=== PATIENT | female | born 1945 | race Caucasian/White ===

== ENCOUNTER 2016-10-24 07:10 | Observation (INO) ==
[2016-10-24] MEDS ORDERED: 0.9 % Sodium Chloride 1,000 ML IVC ONE (07:31)
[2016-10-24] MEDS ORDERED: Ondansetron 4 MG/2 ML VIAL IVP ONE (07:31)
--- NOTE | 2016-10-24 07:43 | Emergency Department Note ---
Disposition Clinical Impression: NSTEMI (non-ST elevated myocardial infarction), Atrial flutter by electrocardiogram Disposition: Admitted As Inpatient Condition: Good Referrals: NO,PCP [Non-Partnered Physician] - Forms: ED Satisfaction Letter Time of Disposition: 09:32 General Adult HPI - General Chief complaint: ED Weakness Stated complaint: Weakness/fall Time Seen by Provider: 10/24/16 07:19 Source: patient, family, EMS Limitations: no limitations Nursing Notes Reviewed: Yes Vital Signs Reviewed: Yes - History of Present Illness HPI Narrative: Female patient with a two-day history of nausea vomiting and diarrhea presents emergency department after a fall at home this morning. She states she fell in her bedroom between her bed and dresser. Unknown if she struck her head. Did lose consciousness. Defecated on herself. Patient is alert and oriented with no complaints of pain at this time. Pain Scale: 0 - Related Data Allergies Allergy/AdvReac Type Severity Reaction Status Date / Time ampicillin Allergy Rash Verified 06/15/15 14:14 All systems ED: reviewed and negative except as stated. Constitutional: Denies: fever, chills ENT ED: Denies: ear pain, throat pain, congestion, dysphagia Cardiovascular: Reports: syncope (Possible episode of syncope today). Denies: chest pain, palpitations, dyspnea on exertion Respiratory: Denies: cough, dyspnea Gastrointestinal: Reports: nausea (For the past 2 days), vomiting (For the past 2 days), diarrhea (For the past 2 days). Denies: abdominal pain Genitourinary: Denies: urgency, dysuria, frequency, hematuria Musculoskeletal: Denies: back pain, neck pain, joint swelling, arthralgia Integumentary: Denies: rash, abrasion, lesions Neurological: Denies: headache, weakness, numbness, paresthesias Past Medical History - Past Medical History Attestation: Yes The following information was validated with the patient. Medical history: Reports: cancer, COPD, diabetes, hypertension, thyroid disease Psychiatric history: Reports: depression - Social History Smoking Status: Current every day smoker Smokeless Tobacco Status: No Alcohol use: Reports: none Drug use: Reports: none Physical Exam - General Limitations: no limitations General appearance: alert, in no apparent distress - Head Head exam: atraumatic, normal inspection - Expanded Head Exam Head exam physicial: Absent: laceration, abrasion, contusion, hematoma, raccoon eyes - Eye Eye exam: Present: normal appearance, PERRL, EOMI. Absent: scleral icterus, conjunctival injection, periorbital swelling, periorbital tenderness - ENT ENT exam: normal exam, normal oropharynx, mucous membranes dry - Neck Neck exam: Present: normal inspection, full ROM, trachea midline. Absent: tenderness, meningismus, lymphadenopathy - Chest Chest inspection: Present: normal inspection, symmetric chest wall rise. Absent : tenderness - Respiratory Respiratory exam: Present: normal lung sounds bilaterally. Absent: respiratory distress - Cardiovascular Cardiovascular exam: Present: regular rate, normal rhythm, normal heart sounds - Abdominal Exam Abdominal exam: Present: soft, Non-Tender, normal bowel sounds. Absent: organomegaly - Extremities Exam Extremities exam: Present: normal inspection, full ROM, normal capillary refill. Absent: tenderness, pedal edema - Back Exam Back exam: Present: normal inspection, full ROM. Absent: tenderness, CVA tenderness (R), CVA tenderness (L) - Neurological Exam Neurological exam: Present: alert, oriented X3 - Psychiatric Psychiatric exam: Present: normal affect, normal mood - Skin Skin exam: Present: warm, dry, intact, normal color. Absent: rash, cyanosis Course Course Narrative: Well-appearing female patient resting comfortably in bed. Patient states that she got out of bed this morning and noticed that her legs were too weak to hold her. She states she then went down to the floor. There is a questionable period Of possible loss of consciousness. Daughter states that she heard her mother mehrdad for her to come help her out of the floor. The daughter then called 911 to assist the patient up. The patient had defecated on herself. Patient has had a 2 day episode of nausea vomiting and diarrhea. She states that she has not been eating or drinking very well since then. Patient does appear dehydrated clinically. Her mucous membranes are dry. The daughter states that there are a lot of stressors at the house recently the patient does have a history of dementia. She states she has been getting her days and nights confused. At this time she is alert and oriented 3. She has no complaints of pain anywhere. I do not find signs of trauma to her body at all. Her pupils are equal and reactive. She has full range of motion of all 4 extremities. She has strong pulses in all 4 extremities. She has no tenderness to her neck or back on palpation. Patient is on aspirin daily. We will scan patient's head due to the possible syncope and unknown trauma to her head. We will also get basic lab work and give her a fluid bolus so she is here. - Reevaluation(s) Reevaluation #1: Patient currently resting comfortably in bed at this time. Her troponin is increased and she is not a new A flutter. However while she is in bed She is still denying any chest pain or shortness of breath. She is agreeable to admission at this time. On CT scan she was found to have possible mastoiditis. She has no pain to her head on palpation at all. She states that she was diagnosed with this she was a small child. However she states she has no pain. Time: : - Consultations Consultation #1: Spoke with Dr. Diamond. He advises to anticoagulate the patient with heparin at this time. He states he use Cardizem for rate control if needed. And to admit patient. She is to be nothing by mouth after midnight. Time: : Consultation #2: Dr Moran accepted Pt in stable condition Time: : Vital Signs Temperature 98.6 F 10/24/16 07:13 Pulse Rate 85 10/24/16 07:13 Respiratory Rate 18 10/24/16 07:13 Blood Pressure 159/56 10/24/16 07:13 O2 Sat by Pulse Oximetry 96 10/24/16 07:13 Temperature 98.6 F 10/24/16 07:13 Pulse Rate 85 10/24/16 07:13 Respiratory Rate 18 10/24/16 07:13 Blood Pressure 159/56 10/24/16 07:13 O2 Sat by Pulse Oximetry 96 10/24/16 07:13 Oxygen Delivery Oxygen Delivery Room Air Medical Decision Making - Medical Records Medical records reviewed: Yes I reviewed the patient's medical records. - Lab Data Lab results reviewed: Yes I reviewed the patient's lab results. Result diagrams: 10/24/16 07:40 10/24/16 07:30 Lab Results 10/24/16 10/24/16 10/24/16 Range/Units 07:30 07:30 07:30 WBC (4.3-11.1) K/mcL RBC (3.82-4.97) M/mcL Hgb (11.5-15.4) g/dL Hct (35.3-44.9) % MCV (83.0-100.0) fL MCH (28.0-33.3) pg MCHC (31.6-35.5) g/dL RDW (11.5-14.5) % Plt Count (140-400) K/mcL MPV (9.4-12.4) fL Immature Gran % (0-4) % Seg Neutrophils % % Lymphocytes % % Monocytes % % Eosinophils % % Basophils % % Neutrophils # (1.6-8.9) K/mcL Lymphocytes # (0.6-4.6) K/mcL Monocytes # (0.0-1.3) K/mcL Eosinophils # (0.0-0.6) K/mcL Basophils # (0.0-0.2) K/mcL PT 12.7 H (9.4-12.1) Seconds INR 1.2 APTT 26.7 (26.0-36.0) Seconds Sodium 137 (136-145) mEq/L Potassium 4.0 (3.5-4.5) mEq/L Chloride 98 (98-109) mEq/L Carbon Dioxide 29 (19-29) mEq/L BUN 31 H (7-20) mg/dL Creatinine 1.13 H (0.57-1.11) mg/dL Est GFR ( Amer) 57 L (> 60) Est GFR (Non-Af Amer) 47 L (> 60) BUN/Creatinine Ratio 27 H (6-26) Glucose 177 H (70-99) mg/dL Calculated Osmolality 295 (280-300) Calcium 9.1 (8.6-10.8) mg/dL Total Bilirubin 0.8 (0.2-1.2) mg/dL AST 18 (5-34) Units/L ALT 11 (0-55) Units/L Alkaline Phosphatase 53 (38-126) Units/L Creatine Kinase 149 (29-168) Units/L Troponin I 0.16 H* (0-0.03) ng/mL Serum Total Protein 6.4 (6.0-8.3) g/dL Albumin 3.1 L (3.5-5.0) g/dL Globulin 3.3 (2.4-3.5) g/dL Albumin/Globulin Ratio 0.9 L (1.1-2.2) 04/16/17 Range/Units 07:40 WBC 9.0 (4.3-11.1) K/mcL RBC 3.83 (3.82-4.97) M/mcL Hgb 10.8 L (11.5-15.4) g/dL Hct 33.7 L (35.3-44.9) % MCV 88.0 (83.0-100.0) fL MCH 28.2 (28.0-33.3) pg MCHC 32.0 (31.6-35.5) g/dL RDW 14.0 (11.5-14.5) % Plt Count 129 L (140-400) K/mcL MPV 11.1 (9.4-12.4) fL Immature Gran % 0.3 (0-4) % Seg Neutrophils % 92.4 % Lymphocytes % 2.1 % Monocytes % 5.1 % Eosinophils % 0.0 % Basophils % 0.1 % Neutrophils # 8.3 (1.6-8.9) K/mcL Lymphocytes # 0.2 L (0.6-4.6) K/mcL Monocytes # 0.5 (0.0-1.3) K/mcL Eosinophils # 0.0 (0.0-0.6) K/mcL Basophils # 0.0 (0.0-0.2) K/mcL PT (9.4-12.1) Seconds INR APTT (26.0-36.0) Seconds Sodium (136-145) mEq/L Potassium (3.5-4.5) mEq/L Chloride (98-109) mEq/L Carbon Dioxide (19-29) mEq/L BUN (7-20) mg/dL Creatinine (0.57-1.11) mg/dL Est GFR ( Amer) (> 60) Est GFR (Non-Af Amer) (> 60) BUN/Creatinine Ratio (6-26) Glucose (70-99) mg/dL Calculated Osmolality (280-300) Calcium (8.6-10.8) mg/dL Total Bilirubin (0.2-1.2) mg/dL AST (5-34) Units/L ALT (0-55) Units/L Alkaline Phosphatase (38-126) Units/L Creatine Kinase (29-168) Units/L Troponin I (0-0.03) ng/mL Serum Total Protein (6.0-8.3) g/dL Albumin (3.5-5.0) g/dL Globulin (2.4-3.5) g/dL Albumin/Globulin Ratio (1.1-2.2) - Radiology Data Radiology results reviewed: Yes I reviewed the patient's radiology results. - EKG Data EKG #1 EKG attestation: Yes I reviewed and interpreted this EKG. EKG results narrative: Atrial flutter. Ventricular rate of 82. QRS duration is 90. QT is 363. QTC is 41. This is a new finding from previous EKG dated 01/09/2015. No ST elevation or depression. Attestation Statement - Attestation Attestation: Patient is a 71-year-old female who presents to the emergency department brought by her daughter for evaluation following a fall that occurred this morning. Patient resides with her daughter at home, and apparently she has had a nausea vomiting and diarrheal illness over the last 2 days. Patient just complains of gradually worsening generalized weakness and states "my legs came out from under me", while getting out of bed this morning causing her to fall onto the floor. Patient yelled for her daughter who responded right away found her awake and alert clear speech on the floor between the bed and her nightstand. Patient did not hit her head she had no nausea or vomiting. Patient states she remembers getting up feeling her legs get weak she remembers falling and landed on the ground but once on the ground was not sure how long until her daughter was able to respond. Patient had no loss of consciousness. Patient on arrival here is asymptomatic, she denies any chest pain or pressure or heaviness, no shortness of breath, no diaphoresis, no nausea vomiting or diarrhea, no abdominal pain either now nor over the past 2 days associated with her vomiting and diarrheal illness. Patient denies any back or flank pain. Patient is resting comfortably at this time and here to be "checked out" related to the fall. Patient with a mild elevation in her blood pressure on arrival but otherwise vital stable. Patient in no acute distress on arrival. Patient's EKG shows what appears to be in underlying atrial flutter but rate controlled. There is no acute ST or T wave changes seen in EKG. I asked the patient about this and according to her and the daughter she had a transient episode of atrial fibrillation in the past related to prior hospitalization but she did not stay in this rhythm, she is not on any heart medications, and is not on any anticoagulants except aspirin daily. Patient denies having any episodes of chest pain pressure or heaviness and no abdominal pain throughout the past 48 hours with this vomiting and diarrheal illness. On lab evaluation patient's workup including chest x-ray and head CT is pre- unremarkable with the exception of an elevated troponin. At this time patient was reassessed, still pain free and asymptomatic resting comfortably with her daughter. Patient's repeat EKG is unchanged from the initial showing no evidence of STEMI or acute ST change. At this time patient denies any palpitations or symptoms. With the elevated troponin we did page cardiology and speak with them in regards to her changes in her EKG as well as the elevated troponin. There requested anticoagulation and admission for further evaluation and management. Patient has remained stable and asymptomatic throughout her ED course.
[2016-10-24 08:04] LABS: Basophils % 0.1 %; Hematocrit 33.7 % (35.3-44.9); Hemoglobin 10.8 g/dL (11.5-15.4); Immature Granulocytes % 0.3 % (0-4); Lymphocytes # 0.2 K/mcL (0.6-4.6); Lymphocytes % 2.1 %; Mean Corpuscular Hemoglobin 28.2 pg (28.0-33.3); Mean Platelet Volume 11.1 fL (9.4-12.4); Monocytes # 0.5 K/mcL (0.0-1.3); Monocytes % 5.1 %; Neutrophils # 8.3 K/mcL (1.6-8.9); Platelet Count 129 K/mcL (140-400); Red Blood Count 3.83 M/mcL (3.82-4.97); Segmented Neutrophils % 92.4 %
[2016-10-24 08:56] LABS: Albumin 3.1 g/dL (3.5-5.0); Albumin/Globulin Ratio 0.9 (1.1-2.2); Bilirubin,Total 0.8 mg/dL (0.2-1.2); Calcium 9.1 mg/dL (8.6-10.8); Globulin 3.3 g/dL (2.4-3.5); Total Protein 6.4 g/dL (6.0-8.3)
[2016-10-24] MEDS ORDERED: Aspirin 81 MG TAB.CHEW PO ONE (09:09)
[2016-10-24] MEDS ORDERED: *HR* Heparin 5,000 UNIT/ML VIAL IVP PRN ×2 (09:15)
[2016-10-24] MEDS ORDERED: Heparin 25,000 UNIT/500 ML D5W 25,000 UNIT/500 ML MLS IVC SCH (09:15)
[2016-10-24] MEDS ORDERED: *HR* Heparin 5,000 UNIT/ML VIAL IVP ONE (09:15)
[2016-10-24 09:31] LABS: INR 1.2; Prothrombin Time 12.7 Seconds (9.4-12.1)
[2016-10-24 09:33] LABS: Activated Partial Thrombo Time 26.7 Seconds (26.0-36.0)
--- NOTE | 2016-10-24 10:45 | Internal Med History&Physical ---
Date of Encounter: 10/24/16 Time of Encounter: 10:41 Assessment and Plan (1) NSTEMI (non-ST elevated myocardial infarction) Current visit: Yes Status: Acute Elevated troponin at 0.16, EKG does not show any ischemic changes, atrial flutter. Patient does not have any chest pain at this time. Patient had a fall today, ? syncopal episode. has been started on heparin drip , will trend trop, monitor for chest pain cardio consult will order ECHO. (2) HTN (hypertension) Current visit: Yes Status: Acute BP elevated at presnetation, she says she has not taken her BP meds today. however as per the daughetr she does not take her pills as she should, ?from her dementia. will restart her home meds monitor BP. Qualifiers: Hypertension type: essential hypertension Qualified Code(s): I10 - Essential (primary) hypertension (3) Diabetes Current visit: Yes Status: Acute Qualifiers: Qualified Code(s): E11.9 - Type 2 diabetes mellitus without complications (4) Dementia Current visit: Yes Status: Acute appears to be alert and awake and oriented at the time of my assesment. as per the daughter she gets confused at times. she has refused HH and rehab services before. she is a high fall risk. will consult PT/OT. Qualifiers: Dementia type: Alzheimer's disease Alzheimer's disease onset: early-onset Dementia behavioral disturbance: without behavioral disturbance Qualified Code(s): G30.0 - Alzheimer's disease with early onset; F02.80 - Dementia in other diseases classified elsewhere without behavioral disturbance (5) Fall Current visit: Yes Status: Acute as above Qualifiers: Encounter type: initial encounter Qualified Code(s): W19.XXXA - Unspecified fall, initial encounter (6) Atrial flutter by electrocardiogram Current visit: Yes Status: Acute past h/o of atrial flutter. not in RVR, will monitor. Internal Medicine - H&P: HPI Chief complaint: fall Admitted From: Home Plans for Post Hospital Care: Home History of present illness: Ms. Coronado is a 71 year old female with past medical history of hypertension, diabetes, dementia , atrial flutter presented to ED after she fell at home this morning. Patient states that she got out of bed this morning and noticed that her legs were too weak to hold her. She states she then went down to the floor. There is a questionable period Of possible loss of consciousness. Daughter states that she heard her mother mehrdad for her to come help her out of the floor. The daughter then called 911 to assist the patient up. The patient had defecated on herself. Patient has had a 2 day episode of nausea vomiting and diarrhea. She states that she has not been eating or drinking very well since then. Patient does appear dehydrated clinically. Her mucous membranes are dry. The daughter states that there are a lot of stressors at the house recently the patient does have a history of dementia. She states she has been getting her days and nights confused. At this time she is alert and oriented 3. She has no complaints of pain anywhere. She denies any chest pain, shortness of breath, fever or cough. She denies any loss of consciousness after the fall. She says she has dizziness on and off and she walks with a walker, she has fallen a couple times in the last few months. As per the daughter, she does not take her medications as she should and is noncompliant with her diet. She was found to have elevated troponin and ED, was seen by cardiology and has been started on heparin drip. Past Med Surg Social Fam HX - Past Medical History Medical history: cancer, COPD, diabetes, hypertension, thyroid disease Psychiatric history: depression - Social History Smoking Status: Current every day smoker Smokeless Tobacco Status: No Alcohol use: none Drug use: none Internal Medicine - H&P: Meds Albuterol Neb [Proventil Neb] 2.5 mg IH TID PRN 10/24/16 [History] Albuterol Sulfate [Ventolin Hfa] 2 puff IH Q4-6H PRN 10/24/16 [History] Budesonide/Formoterol 160/4.5 [Symbicort 160/4.5] 2 puff IH BIDR 10/24/16 [ History] Chlorthalidone 25 mg PO QAM 10/24/16 [History] Cholecalciferol (Vitamin D3) [Vitamin D] 50,000 unit PO QWEEK 10/24/16 [History] FLUoxetine HCl [PROzac] 20 mg PO DAILY 10/24/16 [History] Fluticasone Propionate Nasal [Flonase] 2 spray NS DAILY 10/24/16 [History] Gabapentin [Neurontin] 600 mg PO HS 10/24/16 [History] GlipiZIDE XL (24 HR) [Glucotrol XL] 10 mg PO BID 10/24/16 [History] Levothyroxine [Synthroid] 112 mcg PO QAM 10/24/16 [History] Liraglutide [Victoza 2-Sandip] 1.2 mg SQ DAILY 10/24/16 [History] Losartan Potassium [Cozaar] 50 mg PO DAILY 10/24/16 [History] Lovastatin [Mevacor] 20 mg PO DAILY 10/24/16 [History] Meclizine HCl [Verticalm] 25 mg PO Q6H PRN 10/24/16 [History] Metoprolol [Lopressor] 25 mg PO BID 10/24/16 [History] Omeprazole [PriLOSEC] 40 mg PO DAILY 10/24/16 [History] Oxygen 2 l NS CONT 10/24/16 [History] Pioglitazone [Actos] 45 mg PO DAILY 10/24/16 [History] Raloxifene [Evista] 60 mg PO DAILY 10/24/16 [History] Sertraline [Zoloft] 150 mg PO DAILY 10/24/16 [History] Tiotropium [Spiriva] 1 puff IH DAILY 10/24/16 [History] Allergies ampicillin Allergy (Verified 06/15/15 14:14) Rash All Systems PM: A 10-system review of systems was performed and is negative for pertinent findings except as documented above in the HPI. - Constitutional Vitals: Temp Pulse Resp BP Pulse Ox 98.6 F 85 18 159/56 96 10/24/16 07:13 10/24/16 07:13 10/24/16 07:13 10/24/16 07:13 10/24/16 07:13 General appearance: Present: A&O X 3, no acute distress Exam: mucous membranes appear moist neck- supple chest- b/l clear, no added sounds CVS-s1 and s2, no mr//g abd-soft, non tender, bs are present ext- no edema neuro- no focal defecits, alert and awake. Internal Med - H&P Results - Labs CBC & Chem 7: 10/24/16 07:40 10/24/16 07:30
[2016-10-24] MEDS ORDERED: Naloxone 0.4 MG/ML INJ IVP PRN (11:06)
[2016-10-24] MEDS ORDERED: Ondansetron 4 MG/2 ML VIAL IVP PRN (11:06)
[2016-10-24] MEDS ORDERED: D5% in Water 1,000 ML IVC PRN (11:11)
[2016-10-24] MEDS ORDERED: *HR* Dextrose 50 % in Water (Syg) 50 ML SYRINGE IVP PRN (11:11)
[2016-10-24] MEDS ORDERED: Dextrose Gel 15 GM PO PRN ×2 (11:11)
[2016-10-24] MEDS: Insulin LISPRO 300 UNITS/3 ML VIAL SQ SCH ×4 (14:02→21:12)
[2016-10-24] MEDS: Pantoprazole 40 MG VIAL IVP SCH (15:18)
[2016-10-24] MEDS: 0.9 % Sodium Chloride 1,000 ML IVC SCH (15:18)
[2016-10-24] MEDS: Gabapentin 300 MG CAPSULE PO SCH (21:12)
[2016-10-24] MEDS: Budesonide/Formoterol 160/4.5 MDI IH SCH (21:43)
[2016-10-25 01:19] LABS: Basophils % 0.2 %; Hematocrit 31.2 % (35.3-44.9); Hemoglobin 9.9 g/dL (11.5-15.4); Immature Granulocytes % 0.5 % (0-4); Lymphocytes # 0.4 K/mcL (0.6-4.6); Lymphocytes % 6.2 %; Mean Corpuscular HGB Conc 31.7 g/dL (31.6-35.5); Mean Corpuscular Hemoglobin 27.9 pg (28.0-33.3); Mean Corpuscular Volume 87.9 fL (83.0-100.0); Mean Platelet Volume 10.6 fL (9.4-12.4); Monocytes # 0.5 K/mcL (0.0-1.3); Monocytes % 7.8 %; Platelet Count 111 K/mcL (140-400); Red Blood Count 3.55 M/mcL (3.82-4.97); Red Cell Distribution Width 13.8 % (11.5-14.5); Segmented Neutrophils % 85.3 %
[2016-10-25 01:21] LABS: Neutrophils # 5.5 K/mcL (1.6-8.9)
[2016-10-25 01:33] LABS: BUN/Creatinine Ratio 30 (6-26); Blood Urea Nitrogen 26 mg/dL (7-20); Calcium 8.2 mg/dL (8.6-10.8); Carbon Dioxide 29 mEq/L (19-29); Chloride 100 mEq/L (98-109); Glucose 99 mg/dL (70-99); Osmolality,Calculated 285 (280-300); Potassium 3.6 mEq/L (3.5-4.5); Sodium 135 mEq/L (136-145); eGFR For African Americans > 60 (> 60); eGFR For Non-African Americans > 60 (> 60)
[2016-10-25 01:42] LABS: Platelet Estimate Slight Decrease (Normal)
[2016-10-25] MEDS: 0.9 % Sodium Chloride 1,000 ML IVC SCH ×3 (01:52→22:52)
[2016-10-25] MEDS: Tiotropium 18 MCG inhalation IH SCH (08:10)
[2016-10-25] MEDS: Budesonide/Formoterol 160/4.5 MDI IH SCH ×2 (08:10→22:54)
[2016-10-25] MEDS: Insulin LISPRO 300 UNITS/3 ML VIAL SQ SCH ×4 (08:22→21:35)
[2016-10-25] MEDS: FLUoxetine 20 MG CAPSULE PO SCH (08:23)
[2016-10-25] MEDS: Pantoprazole 40 MG VIAL IVP SCH (08:23)
--- NOTE | 2016-10-25 08:57 | ECHO - Doppler Report ---
Echocardiogram Name: Nancy Coronado Date of Study: 10/24/2016 Date: 1945 Ht: 65.0 in Medical Record#: [id number] Age: 71 Wt: 200.0 lb Gender: Female BSA: 1.98 Order #: [id number] Location: [facility] Room #: [id number] Reading Physician: Nicolás Diamond MD, [facility] [employer] Adjuster: SOLEDAD MaresT, [facility] Ordering Physician: Ivette Moran MD Primary Physician: Carey Hendrickson MD Indications: NSTEMI Impressions: LVEF 65-70%. Moderate concentric left ventricular hypertrophy. No significant valvular dysfunction. Left Ventricular Wall Motion: Rest Echo Findings All wall segments showed normal motion. Findings: Study Quality * Technically adequate exam. Right Ventricle * Normal right ventricular structure and function. Left Atrium * Normal left atrial size. Right Atrium * Normal right atrial size. Interatrial Septum * No evidence of PFO by color Doppler. * Lipomatous interatrial septum. Aorta * Normally sized aortic root. ECG Findings * Normal sinus rhythm. Left Ventricle * Moderate concentric left ventricular hypertrophy. * Indeterminate diastolic function. * LVEF 65-70%. Pericardium * There is a trivial pericardial effusion present. Mitral Valve * No mitral regurgitation. * No mitral stenosis. * Moderate mitral annular calcification IVC * Normal IVC dimensions and inspiratory collapse. Tricuspid Valve * Trace tricuspid regurgitation. * No tricuspid stenosis. * Unable to estimate RVSP due to lack of TR jet. Aortic Valve * No aortic regurgitation. * No aortic stenosis. * Aortic valve not well visualized. History Hypertension History of Smoking Years 45 Packs 1 Family History of CAD 01/10/2015 a Previous Echo was performed. Measurements: BP: 162/ 65 2D Normal Values RVIDd: 3.06 cm <2.7 cm IVSd: 1.67 cm 0.6 - 1.0 cm LVIDd: 4.28 cm 3.7 - 5.6 cm LVPWd: 1.11 cm 0.6 - 1.1 cm LVIDs: 2.92 cm 1.5 - 3.6 cm AO: 2.70 cm < 4.0 cm LA: 3.70 cm 2.0 - 4.0cm %FS: 31.80 cm >25 % LVOT Diam: 1.80 cm LA volume: 35 Mitral Valve Peak E:1.33 m/sec Peak A:1.58 m/sec E/A Ratio:0.8 Peak E' Lat Carlos:6.09 cm/s Peak E' Med Carlos:8.05 cm/s E/E' Lat Ratio:21.8 E/E' Med Ratio:16.5 Updated by Nicolás Diamond MD, [facility] on 10/25/2016 8:53:18 AM electronically signed on 10/25/2016 8:53:35 AM with status of Final Wall Motion Felipe: 1=Normal, 2=Hypokinesis, 3=Akinesis, 4=Dyskinesis, 5=Aneurysmal, 6=Hyperkinetic, X=Not Visualized (Blank)=Missing
--- NOTE | 2016-10-25 09:13 | Cardiology Consult Note ---
Date of Encounter: 10/25/16 Time of Encounter: 08:30 Assessment and Plan (1) Atrial flutter Current Visit: Yes Status: Acute Per cardiology: -Patient with atrial flutter. -Patient states history of "irregular heart beat," but no history fo atrial flutter per review of records. -Patient currently atrial flutter with average HR 82. -[id number] score 4 (age, gender, HTN, DM), would typically recommend meterman anticoagulation, however patient with recent falls. Patient admits to falling more than 5-6 times this month. Patient educated regarding increased stroke risk with atrial flutter, but unable to anticoagulate due to falling. Patient states understanding that she is at increased risk of stroke. Will attempt to discuss with daughter when she arrives. [facility] anticoagulation was discussed with Dr. Tobias who agrees with no meterman AC at this time. Of note, patient is anemic and this appears to be new for patient. Patient also with low platelets, appears new also. -Patient currently on heparin drip, and ARB. -Current hemoglobin 9.9, platelets 111. Patient denies bleeding or blood loss. -Current BPs 150-210s systolic. -TSH Spept2015 noted to be elevated in the 6s. Of note, patient takes synthroid at home. -Will add asa 81mg daily. Will discontinue heparin drip. -Will add beta jadiel. -Will re-check TSH. -Will continue to monitor. Qualifiers: Atrial flutter type: typical Qualified Code(s): I48.3 - Typical atrial flutter (2) Elevated troponin Current Visit: Yes Status: Acute Per cardiology: -Elevated troponin 0.16, 0.16, 0.13. -Troponins flat and adynamic in the setting of HTN, atrial flutter, GRACIELA, and fall. -BPs 150-210s systolic. -ECG with atrial flutter, HR 62. -Patient denies chest pain, increased shortness of breath, or increased fatigue. -Echocardiogram with LVEF 65-70%, moderate concentric left ventricular hypertrophy, no significant valvular dysfunction, all wall segments with normal motion. -Patient on heparin drip, statin, and ARB. -Do not suspect NSTEMI, suspect demand ischemia related to HTN, atrial flutter, GRACIELA, and fall. NO cardiac rehab warranted. -Will stop heparin drip. -Will add asa 81 daily, will add beta jadiel. -Can consider outpatient ischemic evaluation if deemed clinically appropriate. ( Patient aggreeable to no further evaluation at this time, will attempt to discuss with family as well). -CArdiololgy will sign off and will follow as outpatient. Follow up set. (3) HTN (hypertension) Current Visit: Yes Status: Chronic Per cardiology: -BP 150-210s systolic, -On ARB. -Patient admits to non-compliance at home. -Will add beta jadiel, -Continue to monitor BP. Qualifiers: Hypertension type: essential hypertension Qualified Code(s): I10 - Essential (primary) hypertension (4) Fall Current Visit: Yes Status: Acute Per cardiology: -Fall at home. -Admits to falling 5-6 times this month. -CT head negative for hemorrhage or acute infarct. -Management per primary service. Qualifiers: Encounter type: initial encounter Qualified Code(s): W19.XXXA - Unspecified fall, initial encounter (5) Acute kidney injury Current Visit: Yes Status: Acute Per cardiology: -Baseline creatinine 0.8-0.9. -Creatinine on admission 1.13. -Creatinine today 0.87 -Management per primary service. Discussion w patient/family: The assessment and plan as outlined above was discussed with the patient who expressed understanding and agreement. All questions were answered. Thank you for involving us in the care of your patient. Please call with any questions. Patient discussed and reviewed with . History of Present Illness Consult date: 10/24/16 Requesting physician: Maryanne Delgado Consult reason: a.flutter, elevated troponin Chief complaint: fall History of present illness: Ms. Coronado is a 71 year old female with a relevant past medical history of shortness of breath, breast CA s/p right mastectomy, DM, neuropathy, GERD, depression, anxiety, HTN, hypothyroidism, and dementia. Patient presented to [facility] after a fall at home. Patient states she lost consciousness and was unsure if she hit her head or not. Patient woke up and called for her daughter who called 911. Patient underwent CT of head which was negative for acute infarct or hemorrhage. Cardiology was consulted for elevated troponin and atrial flutter. Patient states she has a history of "irregular heart beat," but she also states she has never seen a direct of real estate before. Patient reports she has been falling a lot recently. Patient admits to falling more than 5-6 times this past month. Patient denies chest pain. Patient states shortness of breath is about baseline. Patient denies increased fatigue. Past Med Surg Social Fam HX - Past Medical History Attestation: Yes The following information was validated with the patient. Source: patient, old records reviewed Medical history: cancer, COPD, diabetes, hypertension, thyroid disease Psychiatric history: depression - Past Surgical History Surgical History: cancer surgery - Social History Smoking Status: Current every day smoker Smokeless Tobacco Status: No Alcohol use: none Drug use: none Medications and Allergies Albuterol Neb [Proventil Neb] 2.5 mg IH TID PRN 10/24/16 [History] Albuterol Sulfate [Ventolin Hfa] 2 puff IH Q4-6H PRN 10/24/16 [History] Budesonide/Formoterol 160/4.5 [Symbicort 160/4.5] 2 puff IH BIDR 10/24/16 [ History] Chlorthalidone 25 mg PO QAM 10/24/16 [History] Cholecalciferol (Vitamin D3) [Vitamin D] 50,000 unit PO QWEEK 10/24/16 [History] FLUoxetine HCl [PROzac] 20 mg PO DAILY 10/24/16 [History] Fluticasone Propionate Nasal [Flonase] 2 spray NS DAILY 10/24/16 [History] Gabapentin [Neurontin] 600 mg PO HS 10/24/16 [History] GlipiZIDE XL (24 HR) [Glucotrol XL] 10 mg PO BID 10/24/16 [History] Levothyroxine [Synthroid] 112 mcg PO QAM 10/24/16 [History] Liraglutide [Victoza 2-Sandip] 1.2 mg SQ DAILY 10/24/16 [History] Losartan Potassium [Cozaar] 50 mg PO DAILY 10/24/16 [History] Lovastatin [Mevacor] 20 mg PO DAILY 10/24/16 [History] Meclizine HCl [Verticalm] 25 mg PO Q6H PRN 10/24/16 [History] Metoprolol [Lopressor] 25 mg PO BID 10/24/16 [History] Omeprazole [PriLOSEC] 40 mg PO DAILY 10/24/16 [History] Oxygen 2 l NS CONT 10/24/16 [History] Pioglitazone [Actos] 45 mg PO DAILY 10/24/16 [History] Raloxifene [Evista] 60 mg PO DAILY 10/24/16 [History] Sertraline [Zoloft] 150 mg PO DAILY 10/24/16 [History] Tiotropium [Spiriva] 1 puff IH DAILY 10/24/16 [History] Allergies ampicillin Allergy (Verified 06/15/15 14:14) Rash All Systems Review: A 10-system review of systems was performed and is negative for pertinent findings except as documented above in the HPI. - Constitutional Constitutional: frequent falls - Cardiovascular Cardiovascular: as per HPI, irregular heart rhythm Physical Examination Vital Signs, Last 4 Hours Temp Pulse Resp BP Pulse Ox 10/25/16 08:13 16 94 10/25/16 07:59 99.2 F 84 16 180/82 94 General: Conversant, No Apparent Distress HEENT: Atraumatic, Normocephaly, Mucus Membranes Moist Neck: No JVD Cardiac: No Murmur, Other (Irregularly, irregular) Lungs: Other (Bilateral lower lobes with diminished breath sounds. ) Neuro: Alert and responsive, No focal deficits noted Abdomen: Soft, Non-Tender Skin: No rashes noted on visualized skin Musculoskeletal: No Chest Wall Tenderness Extremities: No Clubbing, No Cyanosis, No Edema, Normal Pulses Results 10/25/16 01:09 10/25/16 01:09 Lab Results Active Medications Budesonide/Formoterol Fumarate (Symbicort) 2 puff IH BIDR PAUL PRN Reason: Protocol Stop: 04/25/17 22:01 Last Admin: 10/25/16 08:10 Dose: 2 puff Dextrose/Water (Dextrose 50% (Syg)) 25 ml IVP AD PRN PRN Reason: Hypoglycemia Stop: 04/25/17 11:12 Fluoxetine HCl (Prozac) 20 mg PO DAILY PAUL PRN Reason: Protocol Stop: 04/26/17 09:01 Last Admin: 10/25/16 08:23 Dose: 20 mg Gabapentin (Neurontin) 600 mg PO HS PAUL Stop: 04/25/17 21:01 Last Admin: 10/24/16 21:12 Dose: 600 mg Glucagon (Glucagen) 1 mg IM ONCE PRN PRN Reason: Hypoglycemia Stop: 04/25/17 11:12 Glucose (Gluctose) 15 gm PO ONCE PRN PRN Reason: Hypoglycemia Stop: 04/25/17 11:12 Glucose (Gluctose) 30 gm PO ONCE PRN PRN Reason: Hypoglycemia Stop: 04/25/17 11:12 Heparin Sodium (Porcine) (Heparin) 6,400 unit 70 unit/kg (6400 unit) IVP Q6HR PRN PRN Reason: SEE COMMENTS Stop: 04/25/17 09:16 Heparin Sodium (Porcine) (Heparin) 3,200 unit 35 unit/kg (3200 unit) IVP Q6H PRN PRN Reason: SEE COMMENTS Stop: 04/25/17 09:16 Last Admin: 10/25/16 01:49 Dose: 3,200 unit Heparin Sodium/Dextrose (Heparin 25,000 Unit/500 Ml D5w) 25,000 unit in 500 mls @ 25.401 mls/hr IVC .[id number] PAUL; 14 UNIT/KG/HR PRN Reason: Protocol Stop: 04/25/17 09:16 Last Titration: 10/25/16 07:23 Dose: 14 unit/kg/hr, 25.401 mls/hr Sodium Chloride (0.9 % Sodium Chloride) 1,000 mls @ 100 mls/hr IVC .Q10H PAUL Stop: 04/25/17 11:16 Last Admin: 10/25/16 01:52 Dose: 100 mls/hr Dextrose (Dextrose 5%) 1,000 mls @ 100 mls/hr IVC .Q10H PRN PRN Reason: HYPOGLYCEMIA Stop: 04/25/17 11:12 Insulin Human Lispro (Humalog) 0 units SQ TIDAC PAUL PRN Reason: Protocol Stop: 04/25/17 11:31 Last Admin: 10/25/16 08:22 Dose: Not Given Insulin Human Lispro (Humalog) 0 units SQ HS PAUL PRN Reason: Protocol Stop: 04/25/17 11:16 Last Admin: 10/24/16 21:12 Dose: Not Given Losartan Potassium (Cozaar) 50 mg PO DAILY [facility] Stop: 04/25/17 11:16 Last Admin: 10/25/16 08:23 Dose: 50 mg Lovastatin (Mevacor) 20 mg PO DAILY PAUL Stop: 04/26/17 09:01 Last Admin: 10/25/16 08:23 Dose: 20 mg Naloxone HCl (Narcan) 0.4 mg IVP Q2MIN PRN PRN Reason: Opioid Reversal Stop: 04/25/17 11:07 Ondansetron HCl (Zofran) 4 mg IVP Q6HR PRN PRN Reason: Nausea And Vomiting Stop: 04/25/17 11:07 Pantoprazole Sodium (Protonix) 40 mg IVP DAILY [facility] Stop: 04/25/17 11:16 Last Admin: 10/25/16 08:23 Dose: 40 mg Raloxifene HCl (Evista) 60 mg PO DAILY [facility] Stop: 04/26/17 09:01 Last Admin: 10/25/16 08:23 Dose: 60 mg Sertraline HCl (Zoloft) 150 mg PO DAILY [facility] Stop: 04/26/17 09:01 Last Admin: 10/25/16 08:23 Dose: 150 mg Tiotropium [place] (Spiriva) 18 mcg IH DAILY PAUL PRN Reason: Protocol Stop: 04/26/17 09:01 Last Admin: 10/25/16 08:10 Dose: 18 mcg Laboratory Tests 04/06/16 09:05 TSH 6.570 H Laboratory Tests 10/24/16 10/24/16 10/24/16 07:30 07:30 07:40 Hgb 10.8 L Hct 33.7 L Plt Count 129 L Creatinine 1.13 H Troponin I 0.16 H* 10/24/16 10/24/16 10/25/16 12:54 17:45 01:09 Hgb 9.9 L Hct 31.2 L Plt Count 111 L Creatinine Troponin I 0.16 H* 0.13 H* 10/25/16 01:09 Hgb Hct Plt Count Creatinine 0.87 Troponin I - Imaging and Cardiology Chest Xray: report reviewed Echo: report reviewed - EKG Interpretation EKG results cardiology: personally reviewed (ECG with atrial flutter, HR 62.), other (Telemetry reviewed with average HR 82, atrial flutter. PVCs noted and one triplet PVC noted.) Consult Discharge Plan - Plan Referrals: Carey Hendrickson MD [Primary Care Provider] -
[2016-10-25 11:36] LABS: Bilirubin,Urine Negative (Negative); Blood,Urine Moderate (Negative); Clarity,Urine Cloudy (Clear); Color,Urine Dark Yellow (Yellow); Glucose,Urine (UA) 100 mg/dL (Normal); Ketones,Urine Negative (Negative); Leukocyte Esterase,Urine Small (Negative); Nitrite,Urine Positive (Negative); PH,Urine 5.5 pH Units (5.0-8.0); Protein,Urine 30 mg/dL (Neg-Trace); Specific Gravity,Urine 1.025 (1.010-1.025); Urobilinogen,Urine Normal (Normal)
[2016-10-25 11:39] LABS: Bacteria,Urine Moderate per hpf (None-Few); Squamous Epithelial Cell,Urine Many per lpf (None-Few); WBC,Urine 15-30 per hpf (0-3)
[2016-10-25 11:47] LABS: Yeast,Urine Few per hpf (None Seen)
[2016-10-25] MEDS: Aspirin 81 MG TAB.CHEW PO SCH (12:27)
--- NOTE | 2016-10-25 16:09 | Internal Med Progress Note ---
<Nancy Buck - Last Filed: 10/25/16 17:11> Date of Encounter: 10/25/16 Time of Encounter: 11:00 - Assessment and plan (1) Fall Current Visit: Yes Status: Acute Assessment and plan: Patient has had multiple episodes of falls at home. 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 Sometimes has help from her daughters, and has home health as well. Etiology of fall unclear at this time, but could be due to dehydration, as patient has not been eating or drinking well lately. Echo showed LVEF 65-70%, moderate concentric LVH, no significant valvular dysfunction. Plan: orthostatic vitals pending B12, folate, TSH pending IV fluids stool guiac pending. Telemetry Qualifiers: Encounter type: initial encounter Qualified Code(s): W19.XXXA - Unspecified fall, initial encounter (2) UTI (urinary tract infection) Current Visit: Yes Status: Acute Assessment and plan: urinalysis showed infection Culture pending Ceftriaxone day 1 Qualifiers: Urinary tract infection type: site unspecified Hematuria presence: without hematuria Qualified Code(s): N39.0 - Urinary tract infection, site not specified (3) Atrial flutter Current Visit: Yes Status: Acute Assessment and plan: Patient found to be in aflutter, states she did not know she had this before. Average HR 82, CHADS/VASC score 4 (age, gender, HTN, DM). Candidate for assisted anticoagulation, but cardiology recommends against it at this time due to falls. Plan: ASA, statin, BB, check TSH continue to monitor. Qualifiers: Atrial flutter type: typical Qualified Code(s): I48.3 - Typical atrial flutter (4) Anemia Current Visit: Yes Status: Acute Assessment and plan: Hg inpatient is 9.9, baseline is around 13. etiology unclear at this time. Plan: TSH, stool guiac, B12, Folate, iron profile pending. Qualifiers: Anemia type: unspecified type Qualified Code(s): D64.9 - Anemia, unspecified (5) Elevated troponin Current Visit: Yes Status: Acute Assessment and plan: Etiology likely secondary to UTI, demand ischemia secondary to anemia. Troponin levels were .16, .16, .13 no chest pain, shortness of breath. Plan: Cardiology was consulted, do not suspect NSTEMI in absence of CP, absence of EKG changes. Stopped heparin drip, switched to SQ heparin. ASA, beta jadiel, continue home lovastatin cardiology has signed off and will follow up outpatient for possible ischemic evaluation if appropriate. (6) HTN (hypertension) Current Visit: Yes Status: Chronic Assessment and plan: continue losartan, metoprolol. blood pressure within acceptable limits at this time. continue to monitor. Qualifiers: Hypertension type: essential hypertension Qualified Code(s): I10 - Essential (primary) hypertension (7) Acute kidney injury Current Visit: Yes Status: Resolved Assessment and plan: patient initially had Cr of 1.13, which has since resolved with fluids. etiology likely secondary to dehydration/UTI continue to monitor. (8) Tobacco abuse Current Visit: Yes Status: Acute Assessment and plan: patient counseled extensively on importance of smoking cessation, refuses to quit. Nicotine patch as needed. (9) Hypothyroidism Current Visit: Yes Status: Acute Assessment and plan: continue synthroid. Qualifiers: Hypothyroidism type: unspecified Qualified Code(s): E03.9 - Hypothyroidism , unspecified (10) DVT prophylaxis Current Visit: Yes Status: Acute Assessment and plan: Heparin SQ - Time Spent With Patient less than 15 minutes - Subjective Interval history: 71 year old female evaluated at bedside. patient denies nausea, vomiting, diarrhea, fever, chills. - Constitutional Vitals: Temp Pulse Resp BP Pulse Ox 98.1 F 74 16 157/71 99 10/25/16 15:21 10/25/16 15:21 10/25/16 15:21 10/25/16 15:21 10/25/16 15:21 General appearance: Present: A&O X 3, no acute distress - Respiratory Respiratory exam: Present: decreased breath sounds Internal Medicine: Result - Labs CBC & Chem 7: 10/25/16 01:09 10/25/16 01:09 Labs: Short CBC 10/25/16 Range/Units 01:09 WBC 6.5 (4.3-11.1) K/mcL Hgb 9.9 L (11.5-15.4) g/dL Hct 31.2 L (35.3-44.9) % Plt Count 111 L (140-400) K/mcL Neutrophils # 5.5 (1.6-8.9) K/mcL BMP 10/25/16 01:09 Sodium 135 L Potassium 3.6 Chloride 100 Carbon Dioxide 29 BUN 26 H Creatinine 0.87 Glucose 99 Calcium 8.2 L Cardiac Enzymes 10/24/16 Range/Units 17:45 Troponin I 0.13 H* (0-0.03) ng/mL Urine 10/25/16 Range/Units 07:32 Urine Color Dark Yellow (Yellow) Urine Clarity Cloudy A (Clear) Urine pH 5.5 (5.0-8.0) pH Units Ur Specific [place] 1.025 (1.010-1.025) Urine Protein 30 H (Neg-Trace) mg/dL Urine Glucose (UA) 100 H (Normal) mg/dL - ABG Interpretation ABG results: PT/INR, D-dimer PT 12.7 Seconds (9.4-12.1) H 10/24/16 07:30 Consult Discharge Plan - Plan Referrals: Carey Hendrickson MD [Primary Care Provider] - <Vini Abel - Last Filed: 10/25/16 18:24> Date of Encounter: 10/25/16 - Assessment and plan (1) UTI (urinary tract infection) Current Visit: Yes Status: Acute Qualifiers: Urinary tract infection type: acute cystitis Hematuria presence: without hematuria Qualified Code(s): N30.00 - Acute cystitis without hematuria (2) Atrial flutter Current Visit: Yes Status: Acute Qualifiers: Atrial flutter type: typical Qualified Code(s): I48.3 - Typical atrial flutter (3) Diabetes Current Visit: Yes Status: Acute Qualifiers: Diabetes mellitus type: type 2 Diabetes mellitus complication status: with hyperglycemia Diabetes mellitus assisted insulin use: without intermediate school teacher use Qualified Code(s): E11.65 - Type 2 diabetes mellitus with hyperglycemia (4) Fall Current Visit: Yes Status: Acute Qualifiers: Encounter type: subsequent encounter Qualified Code(s): W19.XXXD - Unspecified fall, subsequent encounter (5) HTN (hypertension) Current Visit: Yes Status: Chronic Qualifiers: Hypertension type: essential hypertension Qualified Code(s): I10 - Essential (primary) hypertension (6) Tobacco abuse Current Visit: Yes Status: Acute (7) Hypothyroidism Current Visit: Yes Status: Acute Qualifiers: Hypothyroidism type: unspecified Qualified Code(s): E03.9 - Hypothyroidism , unspecified - Time Spent With Patient less than 15 minutes (spent greater than 30 minutes) - Constitutional Vitals: Temp Pulse Resp BP Pulse Ox 98.1 F 74 16 157/71 99 10/25/16 15:21 10/25/16 15:21 10/25/16 15:21 10/25/16 15:21 10/25/16 15:21 Internal Medicine: Result - Labs CBC & Chem 7: 10/25/16 01:09 10/25/16 01:09 Labs: Short CBC 10/25/16 Range/Units 01:09 WBC 6.5 (4.3-11.1) K/mcL Hgb 9.9 L (11.5-15.4) g/dL Hct 31.2 L (35.3-44.9) % Plt Count 111 L (140-400) K/mcL Neutrophils # 5.5 (1.6-8.9) K/mcL BMP 10/25/16 01:09 Sodium 135 L Potassium 3.6 Chloride 100 Carbon Dioxide 29 BUN 26 H Creatinine 0.87 Glucose 99 Calcium 8.2 L Cardiac Enzymes 10/24/16 Range/Units 17:45 Troponin I 0.13 H* (0-0.03) ng/mL Urine 10/25/16 Range/Units 07:32 Urine Color Dark Yellow (Yellow) Urine Clarity Cloudy A (Clear) Urine pH 5.5 (5.0-8.0) pH Units Ur Specific [place] 1.025 (1.010-1.025) Urine Protein 30 H (Neg-Trace) mg/dL Urine Glucose (UA) 100 H (Normal) mg/dL - ABG Interpretation ABG results: PT/INR, D-dimer PT 12.7 Seconds (9.4-12.1) H 10/24/16 07:30 - Attending Attestation I examined this patient and my medical decision-making was reviewed with the Resident Physician on 10/25/16. I agree with the documented findings, disposition and treatment plan as described except to the extent set forth below. Ms. Coronado is currently admitted for fall and atrial flutter. She is moderate to high risk due to potential for worsening cardiac status. Ms. Coronado is resting comfortabley. She denies pain at this time. No dyspnea. Has been having increased urinary incontinence per her daughter. No fever or chills. Exam Alert. Comfortable Heart reg Lungs clear I/P 1. Atrial flutter 2. UTI Further diagnoses and plan as above.
[2016-10-25] MEDS ORDERED: Nicotine 14 MG PATCH.TD24 TD PRN (16:11)
[2016-10-25] MEDS: *HR* Heparin 5,000 UNIT/ML VIAL SQ SCH (16:45)
[2016-10-25] MEDS: Gabapentin 300 MG CAPSULE PO SCH (21:08)
[2016-10-25] MEDS ORDERED: Benzonatate 100 MG CAPSULE PO PRN (23:32)
[2016-10-25] MEDS ORDERED: Dextromethorphan Polistrx(12h) 30 MG/5 ML UDC PO STA (23:32)
[2016-10-25] MEDS ORDERED: Ipratropium/Albuterol Neb 3 ML IH ONE (23:32)
[2016-10-26 06:01] LABS: Basophils % 0.2 %; Hematocrit 28.5 % (35.3-44.9); Hemoglobin 8.8 g/dL (11.5-15.4); Lymphocytes # 0.5 K/mcL (0.6-4.6); Lymphocytes % 9.1 %; Mean Corpuscular HGB Conc 30.9 g/dL (31.6-35.5); Mean Corpuscular Hemoglobin 27.2 pg (28.0-33.3); Mean Platelet Volume 11.4 fL (9.4-12.4); Monocytes # 0.8 K/mcL (0.0-1.3); Monocytes % 13.3 %; Neutrophils # 4.4 K/mcL (1.6-8.9); Platelet Count 111 K/mcL (140-400); Red Blood Count 3.24 M/mcL (3.82-4.97); Red Cell Distribution Width 13.9 % (11.5-14.5); Segmented Neutrophils % 76.4 %
--- NOTE | 2016-10-26 06:07 | Electrocardiograph Report ---
[place] [address] Test Date: 2016-10-24 Pat Name: Nancy Coronado Department: 105 Room: 2NE17 Gender: F Testing Shaking Shipping: : 1945 Requested By: Maryanne Delgado Order Number: [id number] Reading MD: Nicolás Diamond MD Measurements Intervals [place] Rate: 72 P: [place]: 0 QRS: -43 QRSD: 89 T: 84 QT: 398 QTc: 423 Interpretive Statements ATRIAL FIBRILLATION MARKED LEFT AXIS DEVIATION Electronically Signed On 10-26-2016 6:05:23 EDT by Nicolás Diamond MD
[2016-10-26] MEDS: *HR* Heparin 5,000 UNIT/ML VIAL SQ SCH ×2 (06:08→17:21)
[2016-10-26 06:16] LABS: % Iron Saturation 3 % (15-50); BUN/Creatinine Ratio 24 (6-26); Blood Urea Nitrogen 22 mg/dL (7-20); Carbon Dioxide 25 mEq/L (19-29); Chloride 102 mEq/L (98-109); Glucose 152 mg/dL (70-99); Iron 8 mcg/dL (50-170); Osmolality,Calculated 284 (280-300); Potassium 3.7 mEq/L (3.5-4.5); Sodium 134 mEq/L (136-145); Transferrin 178 mg/dL (180-382); eGFR For African Americans > 60 (> 60); eGFR For Non-African Americans > 60 (> 60)
[2016-10-26 06:21] LABS: Platelet Estimate Slight Decrease (Normal); Reactive Lymphocytes Present (Not Present); Toxic Granulation Present (Not Present)
[2016-10-26 06:50] LABS: Folate 5.6 ng/mL (7.0-31.4)
--- NOTE | 2016-10-26 07:06 | Electrocardiograph Report ---
[place] [address] Test Date: 2016-10-25 Pat Name: Nancy Coronado Department: 111 Room: 2NE17 Gender: F Human Resources Services Specialist: TIFFANY : 1945 Requested By: Nona Gonzalez Order Number: [id number] Reading MD: Nicolás Diamond MD Measurements Intervals [place] Rate: 62 P: [place]: 0 QRS: -42 QRSD: 89 T: 83 QT: 370 QTc: 375 Interpretive Statements ATRIAL FIBRILLATION/FLUTTER MARKED LEFT AXIS DEVIATION Poor R wave progression Electronically Signed On 10-26-2016 7:04:36 EDT by Nicolás Diamond MD
--- NOTE | 2016-10-26 07:26 | Electrocardiograph Report ---
[address] [address] Test Date: 2016-10-24 Pat Name: Nancy Coronado Department: 105 Room: 2NE17 Gender: F Inspector Chief: : 1945 Requested By: Maryanne Delgado Order Number: [id number] Reading MD: Nicolás Diamond MD Measurements Intervals [place] Rate: 82 P: [place]: 0 QRS: -50 QRSD: 90 T: 85 QT: 363 QTc: 401 Interpretive Statements BASELINE ARTIFACT COMPLICATES ACCURATE INTERPRETATION BASELINE ARTIFACT, REPEAT EKG PROBABLE ATRIAL FIBRILLATION WITH ABERRANT CONDUCTION OR VENTRICULAR PREMATURE COMPLEXES Electronically Signed On 10-26-2016 7:24:47 EDT by Nicolás Diamond MD
[2016-10-26] MEDS: Pantoprazole 40 MG VIAL IVP SCH (07:53)
[2016-10-26] MEDS: FLUoxetine 20 MG CAPSULE PO SCH (07:53)
[2016-10-26] MEDS: Aspirin 81 MG TAB.CHEW PO SCH (07:53)
[2016-10-26] MEDS: Insulin LISPRO 300 UNITS/3 ML VIAL SQ SCH ×4 (07:54→21:24)
[2016-10-26] MEDS: Budesonide/Formoterol 160/4.5 MDI IH SCH ×2 (08:02→21:27)
[2016-10-26] MEDS: Tiotropium 18 MCG inhalation IH SCH (08:02)
[2016-10-26] MEDS: 0.9 % Sodium Chloride 1,000 ML IVC SCH (09:08)
[2016-10-26] MEDS: Folic Acid 1 MG TABLET PO SCH (09:09)
[2016-10-26 11:00] LABS: Ferritin 260 ng/ml (5-204)
--- NOTE | 2016-10-26 14:35 | Internal Med Progress Note ---
<Nancy Buck - Last Filed: 10/26/16 15:03> Date of Encounter: 10/26/16 Time of Encounter: 10:00 - Assessment and plan (1) Fall Current Visit: Yes Status: Acute Assessment and plan: Patient has had multiple episodes of falls at home. 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 Sometimes has help from her daughters, and has home health as well. Etiology of fall unclear at this time, but could be due to dehydration, as patient has not been eating or drinking well lately. Echo showed LVEF 65-70%, moderate concentric LVH, no significant valvular dysfunction. Etiology likely secondary to orthostatic hypotention, as orthostatic vitals were positive. Also consider anemia in setting of 2 point drop of Hg since admission. B12 normal, Ferritin normal Iron, folate low Plan: IV fluids re check orthostatic vitals tomorrow morning TSH pending folate supplementation Ferrous sulfate TID stool guiac pending. Telemetry discharge planning: home health. Pt/OT recommended SNF but patient refused. Qualifiers: Encounter type: subsequent encounter Qualified Code(s): W19.XXXD - Unspecified fall, subsequent encounter (2) Anemia Current Visit: Yes Status: Acute Assessment and plan: Hg today was 8.8, was 10.8 on admission. etiology unclear at this time. Per [facility], her last colonoscopy was 09/11/07, could not locate path report. patient states she has hx of hemorrhoids, and occasionally has bright red blood with hard bowel movements. Plan: TSH, stool guiac pending consult to gastroenterology for possible colonoscopy. iron and folate supplementation. Qualifiers: Anemia type: unspecified type Qualified Code(s): D64.9 - Anemia, unspecified (3) UTI (urinary tract infection) Current Visit: Yes Status: Acute Assessment and plan: urinalysis showed infection Culture pending Ceftriaxone day 2 Qualifiers: Urinary tract infection type: acute cystitis Hematuria presence: without hematuria Qualified Code(s): N30.00 - Acute cystitis without hematuria (4) Atrial flutter Current Visit: Yes Status: Acute Assessment and plan: Patient found to be in aflutter, states she did not know she had this before. Average HR 82, CHADS/VASC score 4 (age, gender, HTN, DM). Candidate for terminal makeup operator anticoagulation, but cardiology recommends against it at this time due to falls. Plan: ASA, statin, BB, check TSH patient has outpatient cardiology follow up appointment set up after discharge. continue to monitor. Qualifiers: Atrial flutter type: typical Qualified Code(s): I48.3 - Typical atrial flutter (5) Elevated troponin Current Visit: Yes Status: Acute Assessment and plan: Etiology likely secondary to UTI, demand ischemia secondary to anemia. Troponin levels were .16, .16, .13 no chest pain, shortness of breath. Plan: Cardiology was consulted, do not suspect NSTEMI in absence of CP, absence of EKG changes. Stopped heparin drip, switched to SQ heparin. ASA, beta jadiel, continue home lovastatin cardiology has signed off and will follow up outpatient for possible ischemic evaluation if appropriate. (6) HTN (hypertension) Current Visit: Yes Status: Chronic Assessment and plan: continue losartan, metoprolol. blood pressure within acceptable limits at this time. continue to monitor. Qualifiers: Hypertension type: essential hypertension Qualified Code(s): I10 - Essential (primary) hypertension (7) Acute kidney injury Current Visit: Yes Status: Resolved Assessment and plan: patient initially had Cr of 1.13, which has since resolved with fluids. etiology likely secondary to dehydration/UTI continue to monitor. (8) Tobacco abuse Current Visit: Yes Status: Acute Assessment and plan: patient counseled extensively on importance of smoking cessation, refuses to quit. Nicotine patch as needed. (9) Hypothyroidism Current Visit: Yes Status: Acute Assessment and plan: continue synthroid. Qualifiers: Hypothyroidism type: unspecified Qualified Code(s): E03.9 - Hypothyroidism , unspecified (10) DVT prophylaxis Current Visit: Yes Status: Acute Assessment and plan: Heparin SQ - Subjective Interval history: 71 year old female evaluated at bedside. patient denies nausea, vomiting, diarrhea, fever, chills. She admits to dizziness. SHe has no other complaints today - Constitutional Vitals: Temp Pulse Resp BP Pulse Ox 97.9 F 52 16 157/61 99 10/26/16 11:19 10/26/16 11:19 10/26/16 11:19 10/26/16 11:19 10/26/16 11:19 General appearance: Present: A&O X 3, no acute distress - Head Head exam: Present: atraumatic, normocephalic - Eye Additional comments: conjunctival pallor present. - Neck Neck exam general surgery: Present: supple, trachea midline - Respiratory Respiratory exam: Present: CTAB - Cardiovascular Cardiovascular exam: Present: bradycardia - GI/Abdominal GI/Abdominal exam: Present: normal bowel sounds, soft. Absent: tenderness - Extremities Exam Extremities exam: Absent: cyanotic, pedal edema - Neurological Exam Neurological exam: Present: alert, oriented X3, no focal deficits Internal Medicine: Result - Labs CBC & Chem 7: 10/26/16 05:09 10/26/16 05:09 Labs: Short CBC 10/26/16 Range/Units 05:09 WBC 5.7 (4.3-11.1) K/mcL Hgb 8.8 L (11.5-15.4) g/dL Hct 28.5 L (35.3-44.9) % Plt Count 111 L (140-400) K/mcL Neutrophils # 4.4 (1.6-8.9) K/mcL BMP 10/26/16 05:09 Sodium 134 L Potassium 3.7 Chloride 102 Carbon Dioxide 25 BUN 22 H Creatinine 0.91 Glucose 152 H Calcium 8.0 L - ABG Interpretation ABG results: PT/INR, D-dimer PT 12.7 Seconds (9.4-12.1) H 10/24/16 07:30 Consult Discharge Plan - Plan Referrals: Carey Hendrickson MD [Primary Care Provider] - <Vini Abel - Last Filed: 10/26/16 18:59> Date of Encounter: 10/26/16 - Assessment and plan (1) UTI (urinary tract infection) Current Visit: Yes Status: Acute Qualifiers: Urinary tract infection type: acute cystitis Hematuria presence: without hematuria Qualified Code(s): N30.00 - Acute cystitis without hematuria (2) Atrial flutter Current Visit: Yes Status: Acute Qualifiers: Atrial flutter type: typical Qualified Code(s): I48.3 - Typical atrial flutter (3) Diabetes Current Visit: Yes Status: Acute Qualifiers: Diabetes mellitus type: type 2 Diabetes mellitus complication status: with hyperglycemia Diabetes mellitus halfway insulin use: without halfway use Qualified Code(s): E11.65 - Type 2 diabetes mellitus with hyperglycemia (4) Fall Current Visit: Yes Status: Acute Qualifiers: Encounter type: subsequent encounter Qualified Code(s): W19.XXXD - Unspecified fall, subsequent encounter (5) HTN (hypertension) Current Visit: Yes Status: Chronic Qualifiers: Hypertension type: essential hypertension Qualified Code(s): I10 - Essential (primary) hypertension (6) Tobacco abuse Current Visit: Yes Status: Acute (7) Hypothyroidism Current Visit: Yes Status: Acute Qualifiers: Hypothyroidism type: unspecified Qualified Code(s): E03.9 - Hypothyroidism , unspecified - Constitutional Vitals: Temp Pulse Resp BP Pulse Ox 97.7 F 69 16 159/59 97 10/26/16 16:32 10/26/16 16:32 10/26/16 16:32 10/26/16 16:32 10/26/16 16:32 Internal Medicine: Result - Labs CBC & Chem 7: 10/26/16 05:09 10/26/16 05:09 Labs: Short CBC 10/26/16 Range/Units 05:09 WBC 5.7 (4.3-11.1) K/mcL Hgb 8.8 L (11.5-15.4) g/dL Hct 28.5 L (35.3-44.9) % Plt Count 111 L (140-400) K/mcL Neutrophils # 4.4 (1.6-8.9) K/mcL BMP 10/26/16 05:09 Sodium 134 L Potassium 3.7 Chloride 102 Carbon Dioxide 25 BUN 22 H Creatinine 0.91 Glucose 152 H Calcium 8.0 L - ABG Interpretation ABG results: PT/INR, D-dimer PT 12.7 Seconds (9.4-12.1) H 10/24/16 07:30 - Attending Attestation I examined this patient and my medical decision-making was reviewed with the Resident Physician on 10/26/16. I agree with the documented findings, disposition and treatment plan as described except to the extent set forth below. Ms. Coronado is currently hospitalized for anemia and fall. She currently has UTI. She is moderate to high risk due to potential for worsening clinical status. Ms. Coronado is resting comfortably. He blood count decreased again. No pain. On IV abx for UTI. No new medical conditions. Exam Alert. Comfortable Heart reg No wheeze I/P 1. Anemia - work up in progress 2. Orthostatic - IV fluids 3. UTI - on abx 4. a flutter Further diagnoses and plan as above.
[2016-10-26] MEDS ORDERED: 0.9 % Sodium Chloride 1,000 ML IVC SCH (14:45)
[2016-10-26] MEDS: Gabapentin 300 MG CAPSULE PO SCH (21:20)
[2016-10-27 05:03] LABS: Eosinophils % 0.4 %; Hematocrit 27.3 % (35.3-44.9); Hemoglobin 8.6 g/dL (11.5-15.4); Immature Granulocytes % 0.6 % (0-4); Lymphocytes # 0.8 K/mcL (0.6-4.6); Lymphocytes % 14.7 %; Mean Corpuscular HGB Conc 31.5 g/dL (31.6-35.5); Mean Corpuscular Hemoglobin 27.7 pg (28.0-33.3); Mean Corpuscular Volume 87.8 fL (83.0-100.0); Mean Platelet Volume 11.9 fL (9.4-12.4); Monocytes # 0.6 K/mcL (0.0-1.3); Monocytes % 11.2 %; Neutrophils # 3.8 K/mcL (1.6-8.9); Platelet Count 106 K/mcL (140-400); Red Blood Count 3.11 M/mcL (3.82-4.97); Red Cell Distribution Width 14.2 % (11.5-14.5); Segmented Neutrophils % 73.1 %
[2016-10-27 05:18] LABS: BUN/Creatinine Ratio 27 (6-26); Blood Urea Nitrogen 22 mg/dL (7-20); Calcium 8.3 mg/dL (8.6-10.8); Carbon Dioxide 25 mEq/L (19-29); Chloride 105 mEq/L (98-109); Glucose 151 mg/dL (70-99); Osmolality,Calculated 286 (280-300); Sodium 135 mEq/L (136-145); eGFR For African Americans > 60 (> 60); eGFR For Non-African Americans > 60 (> 60)
[2016-10-27 05:41] LABS: Platelet Estimate Decreased (Normal)
[2016-10-27] MEDS: *HR* Heparin 5,000 UNIT/ML VIAL SQ SCH ×2 (05:48→17:42)
[2016-10-27] MEDS ORDERED: 0.9 % Sodium Chloride 1,000 ML IVC SCH (08:15)
[2016-10-27] MEDS: Insulin LISPRO 300 UNITS/3 ML VIAL SQ SCH ×4 (08:56→21:18)
[2016-10-27] MEDS: Pantoprazole 40 MG VIAL IVP SCH (08:57)
[2016-10-27] MEDS: Folic Acid 1 MG TABLET PO SCH (08:57)
[2016-10-27] MEDS: Aspirin 81 MG TAB.CHEW PO SCH (08:57)
[2016-10-27] MEDS: FLUoxetine 20 MG CAPSULE PO SCH (08:58)
[2016-10-27] MEDS: Tiotropium 18 MCG inhalation IH SCH (09:36)
[2016-10-27] MEDS: Budesonide/Formoterol 160/4.5 MDI IH SCH ×2 (09:36→20:19)
[2016-10-27] MEDS: Ipratropium/Albuterol Neb 3 ML IH PRN (09:40)
--- NOTE | 2016-10-27 10:40 | Internal Med Progress Note ---
<Nancy Buck - Last Filed: 10/27/16 10:38> Date of Encounter: 10/27/16 Time of Encounter: 10:38 - Assessment and plan (1) Anemia Current Visit: Yes Status: Acute Assessment and plan: Hg today was 8.6, was 10.8 on admission. etiology unclear at this time. Per [facility], her last colonoscopy was 09/11/07, could not locate path report. patient states she has hx of hemorrhoids, and occasionally has bright red blood with hard bowel movements (happens a few times per month). TSH normal. Plan: TSH, stool guiac pending consult to gastroenterology for possible colonoscopy, awaiting recommendations. iron and folate supplementation. Qualifiers: Anemia type: unspecified type Qualified Code(s): D64.9 - Anemia, unspecified (2) Fall Current Visit: Yes Status: Acute Assessment and plan: Patient has had multiple episodes of falls at home. 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 Sometimes has help from her daughters, and has home health as well. Etiology of fall unclear at this time, but could be due to dehydration, as patient has not been eating or drinking well lately. Echo showed LVEF 65-70%, moderate concentric LVH, no significant valvular dysfunction. Etiology likely secondary to orthostatic hypotention, as orthostatic vitals were positive. Also consider anemia in setting of 2 point drop of Hg since admission. B12 normal, Ferritin normal Iron, folate low TSH normal. Plan: IV fluids re check orthostatic vitals folate supplementation Ferrous sulfate TID stool guiac pending. Telemetry discharge planning: home health. Pt/OT recommended SNF but patient refused. Qualifiers: Encounter type: subsequent encounter Qualified Code(s): W19.XXXD - Unspecified fall, subsequent encounter (3) UTI (urinary tract infection) Current Visit: Yes Status: Acute Assessment and plan: urinalysis showed infection Culture pending Ceftriaxone day 3 Qualifiers: Urinary tract infection type: acute cystitis Hematuria presence: without hematuria Qualified Code(s): N30.00 - Acute cystitis without hematuria (4) Atrial flutter Current Visit: Yes Status: Acute Assessment and plan: Patient found to be in aflutter, states she did not know she had this before. Average HR 82, CHADS/VASC score 4 (age, gender, HTN, DM). Candidate for alf anticoagulation, but cardiology recommends against it at this time due to falls. Plan: ASA, statin, BB, check TSH patient has outpatient cardiology follow up appointment set up after discharge. continue to monitor. Qualifiers: Atrial flutter type: typical Qualified Code(s): I48.3 - Typical atrial flutter (5) Elevated troponin Current Visit: Yes Status: Acute Assessment and plan: Etiology likely secondary to UTI, demand ischemia secondary to anemia. Troponin levels were .16, .16, .13 no chest pain, shortness of breath. Plan: Cardiology was consulted, do not suspect NSTEMI in absence of CP, absence of EKG changes. Stopped heparin drip, switched to SQ heparin. ASA, beta jadiel, continue home lovastatin cardiology has signed off and will follow up outpatient for possible ischemic evaluation if appropriate. (6) HTN (hypertension) Current Visit: Yes Status: Chronic Assessment and plan: continue losartan, metoprolol. blood pressure within acceptable limits at this time. continue to monitor. Qualifiers: Hypertension type: essential hypertension Qualified Code(s): I10 - Essential (primary) hypertension (7) Acute kidney injury Current Visit: Yes Status: Resolved Assessment and plan: patient initially had Cr of 1.13, which has since resolved with fluids. etiology likely secondary to dehydration/UTI continue to monitor. (8) Tobacco abuse Current Visit: Yes Status: Acute Assessment and plan: patient counseled extensively on importance of smoking cessation, refuses to quit. Nicotine patch as needed. (9) Hypothyroidism Current Visit: Yes Status: Acute Assessment and plan: TSH normal. continue synthroid. Qualifiers: Hypothyroidism type: unspecified Qualified Code(s): E03.9 - Hypothyroidism , unspecified (10) DVT prophylaxis Current Visit: Yes Status: Acute Assessment and plan: Heparin SQ - Subjective Interval history: 71 year old female evaluated at bedside. patient denies nausea, vomiting, diarrhea, fever, chills. She has no complaints today. - Constitutional Vitals: Temp Pulse Resp BP Pulse Ox 97.8 F 69 16 162/89 97 10/27/16 07:40 10/27/16 07:40 10/27/16 07:40 10/27/16 07:40 10/27/16 07:40 General appearance: Present: A&O X 3, no acute distress, answers questions appropriately - Head Head exam: Present: atraumatic, normocephalic - Neck Neck exam general surgery: Present: supple, trachea midline - Respiratory Respiratory exam: Present: decreased breath sounds Additional comments: mild rales on left lower lobe. - Cardiovascular Cardiovascular exam: Present: RRR, +S1, +S2 - GI/Abdominal GI/Abdominal exam: Present: distended, normal bowel sounds, soft. Absent: tenderness - Extremities Exam Extremities exam: Absent: cyanotic, pedal edema - Neurological Exam Neurological exam: Present: alert, oriented X3, no focal deficits Internal Medicine: Result - Labs CBC & Chem 7: 10/27/16 03:23 10/27/16 03:23 Labs: Short CBC 10/27/16 Range/Units 03:23 WBC 5.2 (4.3-11.1) K/mcL Hgb 8.6 L (11.5-15.4) g/dL Hct 27.3 L (35.3-44.9) % Plt Count 106 L (140-400) K/mcL Neutrophils # 3.8 (1.6-8.9) K/mcL BMP 10/27/16 03:23 Sodium 135 L Potassium 4.0 Chloride 105 Carbon Dioxide 25 BUN 22 H Creatinine 0.82 Glucose 151 H Calcium 8.3 L - ABG Interpretation ABG results: PT/INR, D-dimer PT 12.7 Seconds (9.4-12.1) H 10/24/16 07:30 Consult Discharge Plan - Plan Referrals: Carey Hendrickson MD [Primary Care Provider] - <Vini Abel - Last Filed: 10/27/16 12:18> Date of Encounter: 10/27/16 - Assessment and plan (1) Orthostatic hypotension Current Visit: Yes Status: Acute Assessment and plan: Receiving IV fluids. Reassess after this liter. (2) UTI (urinary tract infection) Current Visit: Yes Status: Acute Qualifiers: Urinary tract infection type: acute cystitis Hematuria presence: without hematuria Qualified Code(s): N30.00 - Acute cystitis without hematuria (3) Atrial flutter Current Visit: Yes Status: Acute Qualifiers: Atrial flutter type: typical Qualified Code(s): I48.3 - Typical atrial flutter (4) Constipation by delayed colonic transit Current Visit: Yes Status: Acute Assessment and plan: Will give PRN meds today. (5) Diabetes Current Visit: Yes Status: Acute Assessment and plan: Monitoring blood sugar and covering. Qualifiers: Diabetes mellitus type: type 2 Diabetes mellitus complication status: with hyperglycemia Diabetes mellitus alf insulin use: without alf use Qualified Code(s): E11.65 - Type 2 diabetes mellitus with hyperglycemia (6) Fall Current Visit: Yes Status: Acute Qualifiers: Encounter type: subsequent encounter Qualified Code(s): W19.XXXD - Unspecified fall, subsequent encounter (7) HTN (hypertension) Current Visit: Yes Status: Chronic Qualifiers: Hypertension type: essential hypertension Qualified Code(s): I10 - Essential (primary) hypertension (8) Tobacco abuse Current Visit: Yes Status: Acute (9) Hypothyroidism Current Visit: Yes Status: Acute Qualifiers: Hypothyroidism type: unspecified Qualified Code(s): E03.9 - Hypothyroidism , unspecified - Constitutional Vitals: Temp Pulse Resp BP Pulse Ox 98.6 F 81 16 178/71 97 10/27/16 11:03 10/27/16 11:03 10/27/16 11:03 10/27/16 11:03 10/27/16 11:03 Internal Medicine: Result - Labs CBC & Chem 7: 10/27/16 03:23 10/27/16 03:23 Labs: Short CBC 10/27/16 Range/Units 03:23 WBC 5.2 (4.3-11.1) K/mcL Hgb 8.6 L (11.5-15.4) g/dL Hct 27.3 L (35.3-44.9) % Plt Count 106 L (140-400) K/mcL Neutrophils # 3.8 (1.6-8.9) K/mcL BMP 10/27/16 03:23 Sodium 135 L Potassium 4.0 Chloride 105 Carbon Dioxide 25 BUN 22 H Creatinine 0.82 Glucose 151 H Calcium 8.3 L - ABG Interpretation ABG results: PT/INR, D-dimer PT 12.7 Seconds (9.4-12.1) H 10/24/16 07:30 - Attending Attestation I examined this patient and my medical decision-making was reviewed with the Resident Physician on 10/27/16. I agree with the documented findings, disposition and treatment plan as described except to the extent set forth below. Ms. Coronado is currently in observation for fall and UTI. She has had a decrease in hemoglobin and remains orthostatic positive. Ms. Coronado is feeling OK. She has positive orthostatics again this AM and is receiving fluids. She is breathing OK but there is concern she is more dyspneic today. She denies abd pain or chest pain. She does not feel more dyspneic. She is feeling constipated though. Exam Alert. Comfortable. Mucus membranes moist Heart reg Lungs clear at this time Abd soft and nontender I/P 1. Orthostatic hypotension - fluids given 2. Anemia - plan for EGD tomorrow Further diagnoses and plan as above.
--- NOTE | 2016-10-27 11:32 | Gastroenterology Consult Note ---
<MorrisZe rogers Sanjana - Last Filed: 10/27/16 11:30> Date of Encounter: 10/27/16 Time of Encounter: 10:10 - Assessment and plan (1) Anemia Current Visit: Yes Status: Acute Assessment and plan: Hgb 10.8 on admission and 8.6 this AM. Continue to monitor CBC and transfuse PRBC as needed. Plan for EGD tomorrow to r/o esophagitis, gastritis, duodenitis , PUD, MW tear, or AVM. NPO at midnight. Qualifiers: Anemia type: unspecified type Qualified Code(s): D64.9 - Anemia, unspecified (2) Elevated troponin Current Visit: Yes Status: Acute Assessment and plan: Cardiology evaluated the pt and suspects demand ischemia related to HTN, atrial flutter, GRACIELA, and fall. (3) UTI (urinary tract infection) Current Visit: Yes Status: Acute Assessment and plan: Management per primary team. Qualifiers: Urinary tract infection type: acute cystitis Hematuria presence: without hematuria Qualified Code(s): N30.00 - Acute cystitis without hematuria - Time Spent With Patient Total time spent is greater than 50% in coordination of care (as documented) at patient's floor/unit and/or counseling patient: GI History of Present Illness - Data of Consult Patient: new to practice Consult date: 10/27/16 Requesting Physician: Vini Abel DO - Consult Narrative Reason for consult: anemia, History of present illness: Ms. Coronado is a 71 year old female with PMHx of HTN, DM, dementia, atrial flutter , COPD who presented to the ED following a fall at home. Patient has had a 2 day episode of nausea vomiting and diarrhea. She denies fever, cough, chest pain , SOB, LOC. CT head was negative for acute infarct or hemorrhage. She had elevated troponin on admission. Cardiology evaluated the pt and suspects demand ischemia related to HTN, atrial flutter, GRACIELA, and fall. She states that she has not been eating or drinking very well since then. Hgb on admission 10.8 and this AM 8.6. Procedure: Colonoscopy 10/03/2007 Dr. Gómez EGD 04/17/2002 with nonspecific inflammation. NSAIDs: None Anticoagulation: None Past Med Surg Social Fam HX - Past Medical History Medical history: cancer, COPD, diabetes, hypertension, thyroid disease Psychiatric history: depression - Past Surgical History Surgical History: cancer surgery - Social History Smoking Status: Current every day smoker Smokeless Tobacco Status: No Alcohol use: none Drug use: none - Constitutional Constitutional: as per HPI - EENT Eyes: as per HPI Ears: Present: as per HPI Nose, mouth and throat: Present: as per HPI - Cardiovascular Cardiovascular ROS: Present: as per HPI - Respiratory Respiratory IM: Present: as per HPI - Genitourinary Genitourinary: Absent: change in color, Urinary frequency - Neurological ROS Neurological GI: Present: as per HPI - Hematologic/Lymphatic Hematologic/Lymphatic pediatric: Present: as per HPI - Musculoskeletal Musculoskeletal ROS GI: Present: as per HPI - Integumentary Integumentary GI: Present: as per HPI - Psychiatric ROS Psychiatric GI: Present: as per HPI - Endocrine Endocrine IM: Present: as per HPI - Constitutional Vitals: Temp Pulse Resp BP Pulse Ox 98.6 F 81 16 178/71 97 10/27/16 11:03 10/27/16 11:03 10/27/16 11:03 10/27/16 11:03 10/27/16 11:03 General appearance: Present: cooperative, A&O X 3, no acute distress, answers questions appropriately - Head Head exam: Present: atraumatic, normocephalic - Eye Eye exam: Present: normal appearance, sclera anicteric - ENT ENT exam: Present: mucous membranes moist - Neck Neck exam general surgery: Present: normal inspection, trachea midline - Respiratory Respiratory exam: Present: decreased breath sounds, wheezes - Cardiovascular Cardiovascular exam: Present: RRR, +S1, +S2 - GI/Abdominal GI/Abdominal exam: Present: soft, no peritoneal signs. Absent: distended, firm , guarding, tenderness - Rectal Rectal exam: Present: deferred - Extremities Exam Extremities exam: Present: warm - Neurological Exam Neurological exam: Present: no focal deficits - Psychiatric Psychiatric exam: Present: normal affect, normal mood - Skin Skin exam: Present: dry, intact, normal color, warm Results - Labs CBC & Chem 7: 10/27/16 03:23 10/27/16 03:23 Labs: Last Result Calcium 8.3 mg/dL (8.6-10.8) L 10/27/16 03:23 Iron 8 mcg/dL (50-170) L 10/26/16 05:09 % Saturation 3 % (15-50) L 10/26/16 05:09 Transferrin 178 mg/dL (180-382) L 10/26/16 05:09 Ferritin 260 ng/ml (5-204) H 10/26/16 05:09 Troponin I 0.13 ng/mL (0-0.03) H* 10/24/16 17:45 Vitamin B12 297 pg/mL (213-816) 10/26/16 05:09 Folate 5.6 ng/mL (7.0-31.4) L 10/26/16 05:09 Entire Visit Hgb 8.6 g/dL (11.5-15.4) L 10/27/16 03:23 Hct 27.3 % (35.3-44.9) L 10/27/16 03:23 PT 12.7 Seconds (9.4-12.1) H 10/24/16 07:30 Ferritin 260 ng/ml (5-204) H 10/26/16 05:09 Total Bilirubin 0.8 mg/dL (0.2-1.2) 10/24/16 07:30 AST 18 Units/L (5-34) 10/24/16 07:30 ALT 11 Units/L (0-55) 10/24/16 07:30 Folate 5.6 ng/mL (7.0-31.4) L 10/26/16 05:09 - ABG ABG results: PT/INR, D-dimer PT 12.7 Seconds (9.4-12.1) H 10/24/16 07:30 Consult Discharge Plan - Plan Referrals: Carey Hendrickson MD [Primary Care Provider] - <Sj Cordova - Last Filed: 10/27/16 18:07> Date of Encounter: 10/27/16 Time of Encounter: 13:00 - Time Spent With Patient Total time spent is greater than 50% in coordination of care (as documented) at patient's floor/unit and/or counseling patient: GI History of Present Illness - Data of Consult Requesting Physician: Vini Abel DO - Consult Narrative History of present illness: Ms. Coronado is a 71 year old female - Constitutional Vitals: Temp Pulse Resp BP Pulse Ox 97.8 F 69 16 157/85 97 10/27/16 15:08 10/27/16 15:08 10/27/16 15:08 10/27/16 15:07 10/27/16 15:08 Results - Labs CBC & Chem 7: 10/27/16 03:23 10/27/16 03:23 Labs: Last Result Calcium 8.3 mg/dL (8.6-10.8) L 10/27/16 03:23 Iron 8 mcg/dL (50-170) L 10/26/16 05:09 % Saturation 3 % (15-50) L 10/26/16 05:09 Transferrin 178 mg/dL (180-382) L 10/26/16 05:09 Ferritin 260 ng/ml (5-204) H 10/26/16 05:09 Troponin I 0.13 ng/mL (0-0.03) H* 10/24/16 17:45 Vitamin B12 297 pg/mL (213-816) 10/26/16 05:09 Folate 5.6 ng/mL (7.0-31.4) L 10/26/16 05:09 Entire Visit Hgb 8.6 g/dL (11.5-15.4) L 10/27/16 03:23 Hct 27.3 % (35.3-44.9) L 10/27/16 03:23 PT 12.7 Seconds (9.4-12.1) H 10/24/16 07:30 Ferritin 260 ng/ml (5-204) H 10/26/16 05:09 Total Bilirubin 0.8 mg/dL (0.2-1.2) 10/24/16 07:30 AST 18 Units/L (5-34) 10/24/16 07:30 ALT 11 Units/L (0-55) 10/24/16 07:30 Folate 5.6 ng/mL (7.0-31.4) L 10/26/16 05:09 - ABG ABG results: PT/INR, D-dimer PT 12.7 Seconds (9.4-12.1) H 10/24/16 07:30 - Impressions Impressions Chest X-Ray 10/27/16 12:22 IMPRESSION: Interval development of bibasilar airspace disease and small bilateral pleural effusions, left greater than right. Mild diffuse increased interstitial and septal markings which may represent to developing early/mild pulmonary edema. D/ / Aliyah Nath MD / Aliyah Nath MD Interpreting Provider: Aliyah Nath MD - Attending Attestation I examined this patient and my medical decision-making was reviewed with the BOARDING MOTHER/PA/Advanced Practice Nurse/Resident Physician. I agree with the documented findings, disposition and treatment plan as described except to the extent set forth below.
[2016-10-27] MEDS ORDERED: Albuterol 2.5 MG/3 ML NEBULIZER IH PRN (12:19)
[2016-10-27] MEDS ORDERED: NON-FORMULARY MEDICATION 1 EACH EACH (Oxygen [Oxygen] 2 L) NS SCH (12:30)
[2016-10-27] MEDS: Cholecalciferol (D-3) 1,000 UNIT TABLET PO SCH (13:24)
[2016-10-27] MEDS: Gabapentin 300 MG CAPSULE PO SCH (20:27)
[2016-10-27] MEDS ORDERED: *HR* GlipiZIDE XL (24 HR) 10 MG TABLET PO SCH (21:00)
[2016-10-28 05:07] LABS: Basophils % 0.2 %; Eosinophils % 0.7 %; Hematocrit 30.1 % (35.3-44.9); Hemoglobin 9.2 g/dL (11.5-15.4); Immature Granulocytes % 0.7 % (0-4); Lymphocytes # 0.7 K/mcL (0.6-4.6); Lymphocytes % 12.9 %; Mean Corpuscular HGB Conc 30.6 g/dL (31.6-35.5); Mean Corpuscular Hemoglobin 27.1 pg (28.0-33.3); Mean Corpuscular Volume 88.5 fL (83.0-100.0); Mean Platelet Volume 11.1 fL (9.4-12.4); Monocytes # 0.5 K/mcL (0.0-1.3); Monocytes % 8.7 %; Neutrophils # 4.2 K/mcL (1.6-8.9); Platelet Count 143 K/mcL (140-400); Red Cell Distribution Width 14.3 % (11.5-14.5); Segmented Neutrophils % 76.8 %
[2016-10-28 05:17] LABS: BUN/Creatinine Ratio 26 (6-26); Blood Urea Nitrogen 20 mg/dL (7-20); Calcium 8.7 mg/dL (8.6-10.8); Carbon Dioxide 25 mEq/L (19-29); Chloride 105 mEq/L (98-109); Glucose 144 mg/dL (70-99); Osmolality,Calculated 289 (280-300); Sodium 137 mEq/L (136-145); eGFR For African Americans > 60 (> 60); eGFR For Non-African Americans > 60 (> 60)
[2016-10-28 05:40] LABS: Platelet Estimate Normal (Normal)
[2016-10-28] MEDS: *HR* Heparin 5,000 UNIT/ML VIAL SQ SCH ×2 (05:47→16:32)
[2016-10-28] MEDS: Insulin LISPRO 300 UNITS/3 ML VIAL SQ SCH ×4 (07:45→21:52)
[2016-10-28] MEDS: Tiotropium 18 MCG inhalation IH SCH (08:06)
[2016-10-28] MEDS: Budesonide/Formoterol 160/4.5 MDI IH SCH ×2 (08:06→19:46)
[2016-10-28] MEDS: Ipratropium/Albuterol Neb 3 ML IH PRN ×2 (08:09→19:47)
[2016-10-28] MEDS: Pantoprazole 40 MG VIAL IVP SCH (11:56)
[2016-10-28] MEDS ORDERED: Tetracaine/Benzocaine/Butamben 200MG/SPRAY (100SPY/BOT) MM ONE (12:31)
[2016-10-28] MEDS ORDERED: *HR* FentaNYL (PF) 100 MCG/2 ML VIAL IVP PRN (12:31)
[2016-10-28] MEDS ORDERED: Simethicone 40 MG/0.6 ML MLS IR ONE (12:31)
[2016-10-28] MEDS ORDERED: *HR* Midazolam HCl 5 MG/5 ML VIAL IVP PRN (12:31)
--- NOTE | 2016-10-28 12:32 | Pre-Sedation Evaluation ---
Pre-sedation evaluation - Pre-sedation checklist Date of procedure: 10/28/16 Recent Vitals: Last Vital Signs Temp 97.3 F L 10/28/16 10:44 Pulse 72 10/28/16 10:44 Resp 18 10/28/16 10:44 BP 131/98 10/28/16 10:44 Pulse Ox 94 10/28/16 10:44 ASA Classification *see protocol: CLASS II-Mild systemic disease, CLASS III- Severe systemic disease Plan of Care: Pt appropriate candidate for procedure/moderate/conscious sedation , Risks/benefits of procedure/sedation discussed w/ patient/family
[2016-10-28] MEDS ORDERED: *HR* Midazolam HCl 5 MG/5 ML VIAL IVP ONE (12:33)
[2016-10-28] MEDS ORDERED: *HR* FentaNYL (PF) 100 MCG/2 ML VIAL ONE (12:34)
--- NOTE | 2016-10-28 14:56 | Internal Med Progress Note ---
<Nancy Buck - Last Filed: 10/28/16 14:53> Date of Encounter: 10/28/16 Time of Encounter: 10:00 - Assessment and plan (1) Anemia Current Visit: Yes Status: Acute Assessment and plan: Hg today was 8.2, was 10.8 on admission. likely due to folate/iron deficiency. Per [facility], her last colonoscopy was 09/11/07, could not locate path report. patient states she has hx of hemorrhoids, and occasionally has bright red blood with hard bowel movements (happens a few times per month). TSH normal. s/p EGD today. localized inflammation, erosions present within the gastric body on posterior wall. biopsies taken. normal duodenum. Plan: stool guiac pending iron and folate supplementation. Qualifiers: Anemia type: unspecified type Qualified Code(s): D64.9 - Anemia, unspecified (2) Fall Current Visit: Yes Status: Acute Assessment and plan: Patient has had multiple episodes of falls at home. 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 Sometimes has help from her daughters, and has home health as well. Etiology of fall unclear at this time, but could be due to dehydration, as patient has not been eating or drinking well lately. Echo showed LVEF 65-70%, moderate concentric LVH, no significant valvular dysfunction. Etiology likely secondary to orthostatic hypotention, as orthostatic vitals were positive. Also consider anemia in setting of 2 point drop of Hg since admission. B12 normal, Ferritin normal Iron, folate low TSH normal. Plan: re check orthostatic vitals, if positive, will start midodrine. re start chlorothalidone due to elevated blood pressures. folate supplementation Ferrous sulfate TID stool guiac pending. Telemetry discharge planning: home health. Pt/OT recommended SNF but patient refused. Qualifiers: Encounter type: subsequent encounter Qualified Code(s): W19.XXXD - Unspecified fall, subsequent encounter (3) UTI (urinary tract infection) Current Visit: Yes Status: Acute Assessment and plan: urinalysis showed infection Culture grew klebsiella, sensitive to ceftriaxone. Ceftriaxone day 4 Qualifiers: Urinary tract infection type: acute cystitis Hematuria presence: without hematuria Qualified Code(s): N30.00 - Acute cystitis without hematuria (4) Atrial flutter Current Visit: Yes Status: Acute Assessment and plan: Patient found to be in aflutter, states she did not know she had this before. Average HR 82, CHADS/VASC score 4 (age, gender, HTN, DM). Candidate for termite helper anticoagulation, but cardiology recommends against it at this time due to falls. Plan: ASA, statin, BB, check TSH patient has outpatient cardiology follow up appointment set up after discharge. continue to monitor. Qualifiers: Atrial flutter type: typical Qualified Code(s): I48.3 - Typical atrial flutter (5) Elevated troponin Current Visit: Yes Status: Acute Assessment and plan: Etiology likely secondary to UTI, demand ischemia secondary to anemia. Troponin levels were .16, .16, .13 no chest pain, shortness of breath. Plan: Cardiology was consulted, do not suspect NSTEMI in absence of CP, absence of EKG changes. Stopped heparin drip, switched to SQ heparin. ASA, beta jadiel, continue home lovastatin cardiology has signed off and will follow up outpatient for possible ischemic evaluation if appropriate. (6) HTN (hypertension) Current Visit: Yes Status: Chronic Assessment and plan: continue losartan, hold metoprolol. Qualifiers: Hypertension type: essential hypertension Qualified Code(s): I10 - Essential (primary) hypertension (7) Acute kidney injury Current Visit: Yes Status: Resolved Assessment and plan: patient initially had Cr of 1.13, which has since resolved with fluids. etiology likely secondary to dehydration/UTI continue to monitor. (8) Tobacco abuse Current Visit: Yes Status: Acute Assessment and plan: patient counseled extensively on importance of smoking cessation, refuses to quit. Nicotine patch as needed. (9) Hypothyroidism Current Visit: Yes Status: Acute Assessment and plan: TSH normal. continue synthroid. Qualifiers: Hypothyroidism type: unspecified Qualified Code(s): E03.9 - Hypothyroidism , unspecified (10) DVT prophylaxis Current Visit: Yes Status: Acute Assessment and plan: Heparin SQ - Subjective Interval history: 71 year old female evaluated at bedside. patient denies nausea, vomiting, diarrhea, fever, chills. she had an episode of a mechanical fall overnight, she says she tripped over her bed sheets and landed on her bottom, but did not hit her head. She denies any further complaints today. - Constitutional Vitals: Temp Pulse Resp BP Pulse Ox 97.5 F L 68 16 191/80 96 10/28/16 12:43 10/28/16 13:00 10/28/16 13:00 10/28/16 13:00 10/28/16 13:00 General appearance: Present: A&O X 3, no acute distress, answers questions appropriately - Head Head exam: Present: atraumatic, normocephalic - Neck Neck exam general surgery: Present: supple, trachea midline - Respiratory Respiratory exam: Present: decreased breath sounds Additional comments: mild bilateral lower lobe crackles. - Cardiovascular Cardiovascular exam: Present: irregular rhythm - GI/Abdominal GI/Abdominal exam: Present: distended, normal bowel sounds, soft. Absent: tenderness - Extremities Exam Extremities exam: Absent: cyanotic, pedal edema - Neurological Exam Neurological exam: Present: alert, oriented X3, no focal deficits - Psychiatric Psychiatric exam: Present: normal affect, normal mood Internal Medicine: Result - Labs CBC & Chem 7: 10/28/16 04:36 10/28/16 04:36 Labs: Short CBC 10/28/16 Range/Units 04:36 WBC 5.5 (4.3-11.1) K/mcL Hgb 9.2 L (11.5-15.4) g/dL Hct 30.1 L (35.3-44.9) % Plt Count 143 (140-400) K/mcL Neutrophils # 4.2 (1.6-8.9) K/mcL BMP 10/28/16 04:36 Sodium 137 Potassium 4.0 Chloride 105 Carbon Dioxide 25 BUN 20 Creatinine 0.78 Glucose 144 H Calcium 8.7 - ABG Interpretation ABG results: PT/INR, D-dimer PT 12.7 Seconds (9.4-12.1) H 10/24/16 07:30 Consult Discharge Plan - Plan Referrals: Carey Hendrickson MD [Primary Care Provider] - <Vini Abel - Last Filed: 10/28/16 16:47> Date of Encounter: 10/28/16 - Assessment and plan (1) Orthostatic hypotension Current Visit: Yes Status: Resolved (2) UTI (urinary tract infection) Current Visit: Yes Status: Acute Qualifiers: Urinary tract infection type: acute cystitis Hematuria presence: without hematuria Qualified Code(s): N30.00 - Acute cystitis without hematuria (3) Atrial flutter Current Visit: Yes Status: Acute Qualifiers: Atrial flutter type: typical Qualified Code(s): I48.3 - Typical atrial flutter (4) Constipation by delayed colonic transit Current Visit: Yes Status: Acute Assessment and plan: Improved with treatment. (5) Diabetes Current Visit: Yes Status: Acute Assessment and plan: Blood sugars appear to be stable currently. Qualifiers: Diabetes mellitus type: type 2 Diabetes mellitus complication status: with hyperglycemia Diabetes mellitus group home insulin use: without termite helper use Qualified Code(s): E11.65 - Type 2 diabetes mellitus with hyperglycemia (6) Fall Current Visit: Yes Status: Acute Qualifiers: Encounter type: subsequent encounter Qualified Code(s): W19.XXXD - Unspecified fall, subsequent encounter (7) HTN (hypertension) Current Visit: Yes Status: Chronic Qualifiers: Hypertension type: essential hypertension Qualified Code(s): I10 - Essential (primary) hypertension (8) Tobacco abuse Current Visit: Yes Status: Acute (9) Hypothyroidism Current Visit: Yes Status: Acute Qualifiers: Hypothyroidism type: unspecified Qualified Code(s): E03.9 - Hypothyroidism , unspecified - Constitutional Vitals: Temp Pulse Resp BP Pulse Ox 97.5 F L 82 16 214/96 96 10/28/16 12:43 10/28/16 15:26 10/28/16 13:00 10/28/16 15:26 10/28/16 13:00 Internal Medicine: Result - Labs CBC & Chem 7: 10/28/16 04:36 10/28/16 04:36 Labs: Short CBC 10/28/16 Range/Units 04:36 WBC 5.5 (4.3-11.1) K/mcL Hgb 9.2 L (11.5-15.4) g/dL Hct 30.1 L (35.3-44.9) % Plt Count 143 (140-400) K/mcL Neutrophils # 4.2 (1.6-8.9) K/mcL BMP 10/28/16 04:36 Sodium 137 Potassium 4.0 Chloride 105 Carbon Dioxide 25 BUN 20 Creatinine 0.78 Glucose 144 H Calcium 8.7 - ABG Interpretation ABG results: PT/INR, D-dimer PT 12.7 Seconds (9.4-12.1) H 10/24/16 07:30 - Attending Attestation I examined this patient and my medical decision-making was reviewed with the Resident Physician on 10/28/16. I agree with the documented findings, disposition and treatment plan as described except to the extent set forth below. Ms. Coronado is currently in observation for fall, anemia and UTI. Ms. Coronado had EGD today. H/H currently stable. She has received fluids due to orthostasis and she is orthostatic negative at this time. BP is high so meds adjusted. No CP. Says dyspnea is at baseline. No cough. No fever or chills. Exam Alert. Up in chair. Comfortable Heart reg Lungs with scant end exp wheeze Abd soft I/P 1. Anemia - gastritis found on EGD 2. Gastritis 3. UTI with Klebsiella 4. Fall - pt refuses SNF 5. HTN 6. Orthostasis improved. Further diagnoses and plan as above.
[2016-10-28] MEDS: FLUoxetine 20 MG CAPSULE PO SCH (15:06)
[2016-10-28] MEDS: Aspirin 81 MG TAB.CHEW PO SCH (15:06)
[2016-10-28] MEDS: Folic Acid 1 MG TABLET PO SCH (15:08)
[2016-10-28] MEDS: Cholecalciferol (D-3) 1,000 UNIT TABLET PO SCH (15:09)
[2016-10-28] MEDS: amLODIPine 5 MG TABLET PO SCH (16:31)
[2016-10-28] MEDS: Gabapentin 300 MG CAPSULE PO SCH (21:52)
[2016-10-29] MEDS: *HR* Heparin 5,000 UNIT/ML VIAL SQ SCH ×2 (06:31→17:07)
[2016-10-29] MEDS: Tiotropium 18 MCG inhalation IH SCH (07:52)
[2016-10-29] MEDS: Budesonide/Formoterol 160/4.5 MDI IH SCH ×2 (07:53→21:06)
[2016-10-29] MEDS: Insulin LISPRO 300 UNITS/3 ML VIAL SQ SCH ×4 (09:22→21:54)
[2016-10-29] MEDS: Fluticasone Propionate Nasal 50 MCG/SPRAY BOTTLE NS SCH ×2 (09:22→17:07)
[2016-10-29] MEDS: Folic Acid 1 MG TABLET PO SCH (09:34)
[2016-10-29] MEDS: FLUoxetine 20 MG CAPSULE PO SCH (09:35)
[2016-10-29] MEDS: amLODIPine 5 MG TABLET PO SCH (09:36)
[2016-10-29] MEDS: Cholecalciferol (D-3) 1,000 UNIT TABLET PO SCH (09:36)
[2016-10-29] MEDS: Aspirin 81 MG TAB.CHEW PO SCH (09:36)
--- NOTE | 2016-10-29 15:37 | Internal Med Progress Note ---
<Nancy Buck - Last Filed: 10/29/16 15:35> Date of Encounter: 10/29/16 Time of Encounter: 15:35 - Assessment and plan (1) Anemia Current Visit: Yes Status: Acute Qualifiers: Anemia type: unspecified type Qualified Code(s): D64.9 - Anemia, unspecified (2) Fall Current Visit: Yes Status: Acute Assessment and plan: Patient has had multiple episodes of falls at home. 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 Sometimes has help from her daughters, and has home health as well. Etiology of fall unclear at this time, but could be due to dehydration, as patient has not been eating or drinking well lately. Echo showed LVEF 65-70%, moderate concentric LVH, no significant valvular dysfunction. Etiology likely secondary to orthostatic hypotention, as orthostatic vitals were positive. Also consider anemia in setting of 2 point drop of Hg since admission. B12 normal, Ferritin normal Iron, folate low TSH normal. Plan: re check orthostatic vitals today. orthostatic vitals were negative yesterday. continue chlorothalidone and norvasc. BP within normal limits at this time folate supplementation Ferrous sulfate TID stool guiac pending. Telemetry discharge planning: home health. Pt/OT recommended SNF, likely will not be discharged until Tuesday. Qualifiers: Encounter type: subsequent encounter Qualified Code(s): W19.XXXD - Unspecified fall, subsequent encounter (3) UTI (urinary tract infection) Current Visit: Yes Status: Acute Assessment and plan: urinalysis showed infection Culture grew klebsiella, sensitive to ceftriaxone. Ceftriaxone day 5, last dose today. Qualifiers: Urinary tract infection type: acute cystitis Hematuria presence: without hematuria Qualified Code(s): N30.00 - Acute cystitis without hematuria (4) Atrial flutter Current Visit: Yes Status: Acute Assessment and plan: Patient found to be in aflutter, states she did not know she had this before. Average HR 82, CHADS/VASC score 4 (age, gender, HTN, DM). 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 Plan: ASA, statin, BB, check TSH patient has outpatient cardiology follow up appointment set up after discharge. continue to monitor. Qualifiers: Atrial flutter type: typical Qualified Code(s): I48.3 - Typical atrial flutter (5) Elevated troponin Current Visit: Yes Status: Acute Assessment and plan: Etiology likely secondary to UTI, demand ischemia secondary to anemia. Troponin levels were .16, .16, .13 no chest pain, shortness of breath. Plan: Cardiology was consulted, do not suspect NSTEMI in absence of CP, absence of EKG changes. Stopped heparin drip, switched to SQ heparin. ASA, beta jadiel, continue home lovastatin cardiology has signed off and will follow up outpatient for possible ischemic evaluation if appropriate. (6) HTN (hypertension) Current Visit: Yes Status: Chronic Assessment and plan: continue losartan changed dose of metoprolol to metoprolol XL once a day. added norvasc. Qualifiers: Hypertension type: essential hypertension Qualified Code(s): I10 - Essential (primary) hypertension (7) Acute kidney injury Current Visit: Yes Status: Resolved Assessment and plan: patient initially had Cr of 1.13, which has since resolved with fluids. etiology likely secondary to dehydration/UTI continue to monitor. (8) Tobacco abuse Current Visit: Yes Status: Acute Assessment and plan: patient counseled extensively on importance of smoking cessation, refuses to quit. Nicotine patch as needed. (9) Hypothyroidism Current Visit: Yes Status: Acute Assessment and plan: TSH normal. continue synthroid. Qualifiers: Hypothyroidism type: unspecified Qualified Code(s): E03.9 - Hypothyroidism , unspecified (10) DVT prophylaxis Current Visit: Yes Status: Acute Assessment and plan: Heparin SQ - Subjective Interval history: 71 year old female evaluated at bedside. patient denies nausea, vomiting, diarrhea, fever, chills. she denies shortness of breath or dizziness. she denies any further complaints today. - Constitutional Vitals: Temp Pulse Resp BP Pulse Ox 97.4 F L 65 18 151/81 98 10/29/16 07:24 10/29/16 07:24 10/29/16 07:53 10/29/16 07:24 10/29/16 07:53 General appearance: Present: A&O X 3, no acute distress, answers questions appropriately - Head Head exam: Present: atraumatic, normocephalic - Neck Neck exam general surgery: Present: supple, trachea midline - Respiratory Respiratory exam: Present: decreased breath sounds, wheezes - Cardiovascular Cardiovascular exam: Present: irregular rhythm - GI/Abdominal GI/Abdominal exam: Present: distended, normal bowel sounds. Absent: tenderness - Extremities Exam Extremities exam: Absent: cyanotic, pedal edema - Neurological Exam Neurological exam: Present: alert, oriented X3, no focal deficits - Psychiatric Psychiatric exam: Present: normal affect, normal mood Internal Medicine: Result - Labs CBC & Chem 7: 10/28/16 04:36 10/28/16 04:36 - ABG Interpretation ABG results: PT/INR, D-dimer PT 12.7 Seconds (9.4-12.1) H 10/24/16 07:30 Consult Discharge Plan - Plan Referrals: Carey Hendrickson MD [Primary Care Provider] - <Vini Abel - Last Filed: 10/29/16 17:45> Date of Encounter: 10/29/16 - Assessment and plan (1) Orthostatic hypotension Current Visit: Yes Status: Resolved (2) UTI (urinary tract infection) Current Visit: Yes Status: Acute Qualifiers: Urinary tract infection type: acute cystitis Hematuria presence: without hematuria Qualified Code(s): N30.00 - Acute cystitis without hematuria (3) Atrial flutter Current Visit: Yes Status: Acute Qualifiers: Atrial flutter type: typical Qualified Code(s): I48.3 - Typical atrial flutter (4) Constipation by delayed colonic transit Current Visit: Yes Status: Acute (5) Diabetes Current Visit: Yes Status: Acute Qualifiers: Diabetes mellitus type: type 2 Diabetes mellitus complication status: with hyperglycemia Diabetes mellitus dedicated intermodal truck driver insulin use: without chcf use Qualified Code(s): E11.65 - Type 2 diabetes mellitus with hyperglycemia (6) Fall Current Visit: Yes Status: Acute Qualifiers: Encounter type: subsequent encounter Qualified Code(s): W19.XXXD - Unspecified fall, subsequent encounter (7) HTN (hypertension) Current Visit: Yes Status: Chronic Qualifiers: Hypertension type: essential hypertension Qualified Code(s): I10 - Essential (primary) hypertension (8) Tobacco abuse Current Visit: Yes Status: Acute (9) Hypothyroidism Current Visit: Yes Status: Acute Qualifiers: Hypothyroidism type: unspecified Qualified Code(s): E03.9 - Hypothyroidism , unspecified - Constitutional Vitals: Temp Pulse Resp BP Pulse Ox 97.7 F 61 16 140/87 98 10/29/16 16:02 10/29/16 16:02 10/29/16 16:02 10/29/16 16:02 10/29/16 16:02 Internal Medicine: Result - Labs CBC & Chem 7: 10/28/16 04:36 10/28/16 04:36 - ABG Interpretation ABG results: PT/INR, D-dimer PT 12.7 Seconds (9.4-12.1) H 10/24/16 07:30 - Attending Attestation I examined this patient and my medical decision-making was reviewed with the Resident Physician on 10/29/16. I agree with the documented findings, disposition and treatment plan as described except to the extent set forth below. Ms. Coronado is currently in observation for fall, orthostatic hypotension and anemia. Ms. Coronado has agreed to go to SNF. She has chosen [facility] and referral made but need to await approval. She is feeling OK today. No dizziness on standing. No dyspnea or CP. No GI symptoms. Exam Alert. Comfortable up in chair. Mucus membranes moist Heart reg Scattered rhonchi but no wheeze Abd soft I/P 1. Orthostatic hypotension - was resolved yesterday. Recheck today. 2. HTN 3. UTI - completes 5 day abx today 4. a flutter - Further diagnoses and plan as above.
[2016-10-29] MEDS: Gabapentin 300 MG CAPSULE PO SCH (21:53)
[2016-10-30] MEDS: Ipratropium/Albuterol Neb 3 ML IH PRN (04:57)
[2016-10-30] MEDS: *HR* Heparin 5,000 UNIT/ML VIAL SQ SCH (05:09)
[2016-10-30 07:09] VITALS: BP 191/83
[2016-10-30] MEDS: Budesonide/Formoterol 160/4.5 MDI IH SCH (07:36)
[2016-10-30] MEDS: Tiotropium 18 MCG inhalation IH SCH (07:36)
[2016-10-30] MEDS ORDERED: Metoprolol XL (24 HR) Succ 25 MG TAB.ER.24H PO SCH (09:00)
--- NOTE | 2016-10-30 09:11 | Discharge Summary ---
Date of Encounter: 10/30/16 Time of Encounter: 08:30 - Discharge Diagnosis (1) UTI (urinary tract infection) Priority: Secondary Status: Acute Qualifiers: Urinary tract infection type: acute cystitis Hematuria presence: without hematuria Qualified Code(s): N30.00 - Acute cystitis without hematuria (2) Atrial flutter Priority: Primary Status: Acute Qualifiers: Atrial flutter type: typical Qualified Code(s): I48.3 - Typical atrial flutter (3) Constipation by delayed colonic transit Priority: Secondary Status: Acute (4) Diabetes Priority: Secondary Status: Chronic Qualifiers: Diabetes mellitus type: type 2 Diabetes mellitus complication status: with hyperglycemia Diabetes mellitus repairer pump insulin use: without penitentiary use Qualified Code(s): E11.65 - Type 2 diabetes mellitus with hyperglycemia (5) Fall Priority: Primary Status: Acute Qualifiers: Encounter type: subsequent encounter Qualified Code(s): W19.XXXD - Unspecified fall, subsequent encounter (6) HTN (hypertension) Priority: Secondary Status: Chronic Qualifiers: Hypertension type: essential hypertension Qualified Code(s): I10 - Essential (primary) hypertension (7) Tobacco abuse Priority: Secondary Status: Chronic (8) Hypothyroidism Priority: Secondary Status: Chronic Qualifiers: Hypothyroidism type: unspecified Qualified Code(s): E03.9 - Hypothyroidism , unspecified (9) Dementia Priority: Secondary Status: Chronic Qualifiers: Dementia type: Alzheimer's disease Alzheimer's disease onset: early-onset Dementia behavioral disturbance: without behavioral disturbance Qualified Code(s): G30.0 - Alzheimer's disease with early onset; F02.80 - Dementia in other diseases classified elsewhere without behavioral disturbance (10) Anemia Priority: Secondary Status: Chronic Comments: Possibly related to chronic blood loss. Qualifiers: Anemia type: other cause Other causes of anemia: chronic disease, other Qualified Code(s): D63.8 - Anemia in other chronic diseases classified elsewhere (11) Orthostatic hypotension Priority: Secondary Status: Resolved - Discharge Medications Home Medications: Albuterol Neb [Proventil Neb] 2.5 mg IH TID PRN 10/24/16 [History] Albuterol Sulfate [Ventolin Hfa] 2 puff IH Q4-6H PRN 10/24/16 [History] Budesonide/Formoterol 160/4.5 [Symbicort 160/4.5] 2 puff IH BIDR 10/24/16 [ History] Chlorthalidone 25 mg PO QAM 10/24/16 [History] Cholecalciferol (Vitamin D3) [Vitamin D3] 50,000 unit PO QWEEK 10/24/16 [History ] FLUoxetine HCl [Prozac] 20 mg PO DAILY 10/24/16 [History] Fluticasone Propionate Nasal [Flonase] 2 spray NS DAILY 10/24/16 [History] Gabapentin [Neurontin] 600 mg PO HS 10/24/16 [History] GlipiZIDE XL (24 HR) [Glucotrol XL] 10 mg PO BID 10/24/16 [History] Levothyroxine [Synthroid] 112 mcg PO QAM 10/24/16 [History] Liraglutide [Victoza 2-Sandip] 1.2 mg SQ DAILY 10/24/16 [History] Losartan Potassium [Cozaar] 50 mg PO DAILY 10/24/16 [History] Lovastatin [Mevacor] 20 mg PO DAILY 10/24/16 [History] Meclizine HCl [Verticalm] 25 mg PO Q6H PRN 10/24/16 [History] Omeprazole [PriLOSEC] 40 mg PO DAILY 10/24/16 [History] Oxygen 2 l NS CONT 10/24/16 [History] Pioglitazone [Actos] 45 mg PO DAILY 10/24/16 [History] Raloxifene [Evista] 60 mg PO DAILY 10/24/16 [History] Sertraline [Zoloft] 150 mg PO DAILY 10/24/16 [History] Tiotropium [Spiriva] 1 puff IH DAILY 10/24/16 [History] Amlodipine [Norvasc] 5 mg PO DAILY tablet 10/30/16 [Rx] Aspirin 81 mg PO DAILY tab.chew 10/30/16 [Rx] Benzonatate [Tessalon] 200 mg PO TID PRN #0 capsule 10/30/16 [Rx] Ferrous Sulfate 325 mg PO TIDWM tablet 10/30/16 [Rx] Folic Acid 5 mg PO DAILY tablet 10/30/16 [Rx] Metoprolol XL (24 HR) Succ [Toprol Xl] 25 mg PO DAILY tab.er.24h 10/30/16 [Rx] Nicotine Patch [Nicoderm] 14 mg TD DAILY PRN #0 patch.td24 10/30/16 [Rx] Allergies/Adverse Reactions: Allergies ampicillin Allergy (Verified 06/15/15 14:14) Rash Date of admission: 10/24/16 10:29 Primary care physician: Carey Hawley Consults: 10/24/16 11:07 Consult to Occupational Therapy [CONS] Routine Comment: Evaluate, develop and implement POC Consult to Physical Therapy [CONS] Routine Comment: Evaluate, develop and implement POC 10/25/16 15:18 Consult to Compound Mixer [CONS] Routine Reason for SW Consult: Home needs 10/26/16 14:42 Consult to Gastroenterology [CONS] Routine Consulting Provider: Gastroenterology Vivian Reason for Consult: 2 point drop in Hg since admission, hx of hemorrhoids, possible colonoscopy. Time Notified: 14:43 Call Completed: Yes Discharging clinician: Vini Abel Anticipated date of discharge: 10/30/16 - Patient Status Disposition: Transfer SNF Condition: Good Functional capacity at discharge: uses cane/walker Overall status at discharge: patient is progressing back to baseline - Discharge Instructions Follow Up With: Carey Hendrickson MD [Primary Care Provider] - - Diet and Activity Activity: as per physical therapy Diet: diabetic diet, low salt diet Hospital course: Ms. Coronado is a 71 year old female with hx of COPD and dementia brought to ED after a fall at home. She felt her legs were too weak to hold her and she went down. She had had a 2 day history of nausea, vomiting and diarrhea prior and had not been eating and drinking well. She has hx of a flutter but is not on anticoagulation due to bleeding. She had not been sleeping well either and would not take her afternoon pills. In ED her troponin was elevated and she was admitted. Ms. Coronado was admitted to [facility]. She was started on IV fluids. She was also placed on heparin for concern of NSTEMI. She was evaluated by cardiology and heparin stopped. Hemoglobin also decreased and she was evaluated by GI. She had EGD which showed gastritis and biopsies are pending. PT/OT evaluations suggested SNF and initially she refused but ultimately agreed to SNF admission. Urine was positive for E. coli and she completed 5 days of therapy with Rocephin. On 10/30/16 she was afebrile with stable vitals. She has been accepted at a SNF and will be discharged today. - Time Spent with Patient Total time spent providing and/or coordinating discharge services: 44min - Constitutional Vitals: Temp Pulse Resp BP Pulse Ox 97.5 F L 75 20 191/83 94 10/30/16 07:03 10/30/16 07:03 10/30/16 07:37 10/30/16 07:03 10/30/16 07:37 General appearance: Present: A&O X 3, answers questions appropriately - Head Head exam: Present: normocephalic - Eye Eye exam: Present: conjuntiva pink - ENT ENT exam: Present: mucous membranes dry - Respiratory Respiratory exam: Present: decreased breath sounds, wheezes - Cardiovascular Cardiovascular exam: Present: RRR. Absent: tachycardia - GI/Abdominal GI/Abdominal exam: Present: soft. Absent: tenderness - Extremities Exam Extremities exam: Present: warm. Absent: pedal edema - Neurological Exam Neurological exam: Present: alert, oriented X3, no focal deficits - Psychiatric Psychiatric exam: Present: normal affect, normal mood - Skin Skin exam: Present: warm. Absent: rash
[2016-10-30] MEDS: Insulin LISPRO 300 UNITS/3 ML VIAL SQ SCH ×2 (09:14→12:01)
[2016-10-30] MEDS: Aspirin 81 MG TAB.CHEW PO SCH (09:18)
[2016-10-30] MEDS: Cholecalciferol (D-3) 1,000 UNIT TABLET PO SCH (09:18)
[2016-10-30] MEDS: FLUoxetine 20 MG CAPSULE PO SCH (09:18)
[2016-10-30] MEDS: amLODIPine 5 MG TABLET PO SCH (09:19)
[2016-10-30] MEDS: Fluticasone Propionate Nasal 50 MCG/SPRAY BOTTLE NS SCH (09:19)
[2016-10-30] MEDS: Folic Acid 1 MG TABLET PO SCH (09:19)
--- NOTE | 2016-10-30 10:00 | Physician Discharge Referral ---
ExtendedCare Referral Info Transfer To: [facility] Provider in Charge: Vini Abel DO Provider in Charge after Transfer: PCP Institutional Level of Care: Skilled - Diagnosis (1) UTI (urinary tract infection) Priority: Primary Status: Acute (2) Atrial flutter Priority: Secondary Status: Acute (3) Constipation by delayed colonic transit Priority: Secondary Status: Acute (4) Diabetes Priority: Secondary Status: Chronic (5) Fall Priority: Primary Status: Acute (6) HTN (hypertension) Priority: Secondary Status: Chronic (7) Tobacco abuse Priority: Secondary Status: Chronic (8) Hypothyroidism Priority: Secondary Status: Chronic (9) Dementia Priority: Secondary Status: Chronic (10) Anemia Priority: Secondary Status: Chronic (11) Orthostatic hypotension Priority: Secondary Status: Resolved Expected Duration of Placement: Less than 30 days Prognosis: Fair Aware of Diagnosis: Patient, Family Aware of Prognosis: Patient, Family - Transfer Medications Home Medications: Albuterol Neb [Proventil Neb] 2.5 mg IH TID PRN 10/24/16 [History] Albuterol Sulfate [Ventolin Hfa] 2 puff IH Q4-6H PRN 10/24/16 [History] Budesonide/Formoterol 160/4.5 [Symbicort 160/4.5] 2 puff IH BIDR 10/24/16 [ History] Chlorthalidone 25 mg PO QAM 10/24/16 [History] Cholecalciferol (Vitamin D3) [Vitamin D3] 50,000 unit PO QWEEK 10/24/16 [History ] FLUoxetine HCl [Prozac] 20 mg PO DAILY 10/24/16 [History] Fluticasone Propionate Nasal [Flonase] 2 spray NS DAILY 10/24/16 [History] Gabapentin [Neurontin] 600 mg PO HS 10/24/16 [History] GlipiZIDE XL (24 HR) [Glucotrol XL] 10 mg PO BID 10/24/16 [History] Levothyroxine [Synthroid] 112 mcg PO QAM 10/24/16 [History] Liraglutide [Victoza 2-Sandip] 1.2 mg SQ DAILY 10/24/16 [History] Losartan Potassium [Cozaar] 50 mg PO DAILY 10/24/16 [History] Lovastatin [Mevacor] 20 mg PO DAILY 10/24/16 [History] Meclizine HCl [Verticalm] 25 mg PO Q6H PRN 10/24/16 [History] Omeprazole [PriLOSEC] 40 mg PO DAILY 10/24/16 [History] Oxygen 2 l NS CONT 10/24/16 [History] Pioglitazone [Actos] 45 mg PO DAILY 10/24/16 [History] Raloxifene [Evista] 60 mg PO DAILY 10/24/16 [History] Sertraline [Zoloft] 150 mg PO DAILY 10/24/16 [History] Tiotropium [Spiriva] 1 puff IH DAILY 10/24/16 [History] Amlodipine [Norvasc] 5 mg PO DAILY tablet 10/30/16 [Rx] Aspirin 81 mg PO DAILY tab.chew 10/30/16 [Rx] Benzonatate [Tessalon] 200 mg PO TID PRN #0 capsule 10/30/16 [Rx] Ferrous Sulfate 325 mg PO TIDWM tablet 10/30/16 [Rx] Folic Acid 5 mg PO DAILY tablet 10/30/16 [Rx] Metoprolol XL (24 HR) Succ [Toprol Xl] 25 mg PO DAILY tab.er.24h 10/30/16 [Rx] Nicotine Patch [Nicoderm] 14 mg TD DAILY PRN #0 patch.td24 10/30/16 [Rx] Allergies/Adverse Reactions: Allergies ampicillin Allergy (Verified 06/15/15 14:14) Rash - Respiratory Orders Oxygen / L per min (Keep sat greater than 90%) Smoking Cessation: Smoking cessation has been advised. For more information, call the [place] Tobacco Quit Line at 2-811-CXBB-NOW. - Lab Orders Lab Orders: 2 Step Mantoux Test per State regulation - Ancillary Orders May use pressure relief devices daily prn, May go on THOMAS w/family/respon green party w /meds at nurse discretion PRN, May consult with Dentist, Sawyer Helper, Firmware Engineer PRN - Advance Directives Code Status: Full Code - History and Physical History/Physical reviewed & approved w/add comments: Pt more alert. - Mobility Orders Ambulate - Rehabiliation Orders Rehab Potential: Fair Rehab Orders: Evaluation for Physical Therapy, Evaluation for Occupational Therapy - Treatments Skin tear care topically daily PRN per policy, May check for fecal impaction rectally daily PRN, Fleet enema rectally every other day PRN cleansing purposes - Diet Orders No Concentrated Sweets, Cardiac CERTIFICATION: I certify that the transfer of the above named patient to an Extended Care Facility is necessary for the continuing treatment of the diagnosis listed. The above information is true and accurate reflection of patient's current condition. Confidential - Redisclosure prohibited without a patient's written consent.
[2016-10-30] MEDS ORDERED: amLODIPine 5 MG TABLET PO ONE (11:20)
== END 2016-10-30 14:18 ==
LOC: 2NENU 07:10 → EMEROO 07:10 → 2NENU 12:15
PROVIDERS: ADMIT Internal Medicine Endocrinology, Diabetes & Metabolism; ATTEND Internal Medicine
PROC: ENDOEBX (2016-10-28 13:30)

== ENCOUNTER 2016-12-01 07:09 | Inpatient (IN) ==
--- NOTE | 2016-11-28 20:38 | Discharge Summary ---
<Karly Canela - Last Filed: 11/28/16 20:35> Date of Encounter: 11/28/16 - Discharge Diagnosis (1) Fracture of neck of left humerus Priority: Primary Status: Acute Qualifiers: Encounter type: initial encounter Fracture type: closed Qualified Code(s) : S42.212A - Unspecified displaced fracture of surgical neck of left humerus, initial encounter for closed fracture (2) Atrial flutter by electrocardiogram Priority: Secondary Status: Chronic (3) HTN (hypertension) Priority: Secondary Status: Chronic Qualifiers: Hypertension type: essential hypertension (4) Diabetes Priority: Secondary Status: Chronic Qualifiers: Diabetes mellitus type: type 2 Diabetes mellitus complication status: with unspecified complications Diabetes mellitus mcc insulin use: unspecified intermediate teacher insulin use status Qualified Code(s): E11.8 - Type 2 diabetes mellitus with unspecified complications (5) Dementia Priority: Secondary Status: Chronic Qualifiers: Dementia type: unspecified type Dementia behavioral disturbance: without behavioral disturbance Qualified Code(s): F03.90 - Unspecified dementia without behavioral disturbance (6) Tobacco abuse Priority: Secondary Status: Chronic (7) Anemia Priority: Secondary Status: Chronic Qualifiers: Anemia type: unspecified type Qualified Code(s): D64.9 - Anemia, unspecified (8) Hypothyroidism Priority: Secondary Status: Chronic Qualifiers: Hypothyroidism type: unspecified - Discharge Medications Home Medications: Albuterol Neb [Proventil Neb] 2.5 mg IH TID PRN 10/24/16 [History] Albuterol Sulfate [Ventolin Hfa] 2 puff IH Q4-6H PRN 10/24/16 [History] Budesonide/Formoterol 160/4.5 [Symbicort 160/4.5] 2 puff IH BIDR 10/24/16 [ History] Chlorthalidone 25 mg PO QAM 10/24/16 [History] Cholecalciferol (Vitamin D3) [Vitamin D3] 50,000 unit PO QWEEK 10/24/16 [History ] FLUoxetine HCl [Prozac] 20 mg PO DAILY 10/24/16 [History] Fluticasone Propionate Nasal [Flonase] 2 spray NS DAILY 10/24/16 [History] Gabapentin [Neurontin] 600 mg PO HS 10/24/16 [History] GlipiZIDE XL (24 HR) [Glucotrol XL] 10 mg PO BID 04/16/17 [History] Levothyroxine [Synthroid] 112 mcg PO QAM 10/24/16 [History] Liraglutide [Victoza 2-Sadnip] 1.2 mg SQ DAILY 10/24/16 [History] Losartan Potassium [Cozaar] 50 mg PO DAILY 10/24/16 [History] Lovastatin [Mevacor] 20 mg PO DAILY 10/24/16 [History] Meclizine HCl [Verticalm] 25 mg PO Q6H PRN 10/24/16 [History] Omeprazole [PriLOSEC] 40 mg PO DAILY 10/24/16 [History] Oxygen 2 l NS CONT 10/24/16 [History] Pioglitazone [Actos] 45 mg PO DAILY 10/24/16 [History] Raloxifene [Evista] 60 mg PO DAILY 10/24/16 [History] Sertraline [Zoloft] 150 mg PO DAILY 10/24/16 [History] Tiotropium [Spiriva] 1 puff IH DAILY 10/24/16 [History] Aspirin 81 mg PO DAILY tab.chew 10/30/16 [Rx] Benzonatate [Tessalon] 200 mg PO TID PRN #0 capsule 10/30/16 [Rx] Ferrous Sulfate 325 mg PO TIDWM tablet 10/30/16 [Rx] Folic Acid 5 mg PO DAILY tablet 10/30/16 [Rx] Metoprolol XL (24 HR) Succ [Toprol Xl] 25 mg PO DAILY tab.er.24h 10/30/16 [Rx] Nicotine Patch [Nicoderm] 14 mg TD DAILY PRN #0 patch.td24 10/30/16 [Rx] amLODIPine [Norvasc] 10 mg PO DAILY #7 tablet 10/30/16 [Rx] OxyCODONE/APAP 5/325 [Percocet 5/325 MG] 1 each PO Q6HR PRN #12 tablet 11/21/16 [Rx] OxyCODONE Immed Rel [Roxicodone 5 MG] 5 - 10 mg PO Q6HR PRN #40 tablet 11/28/16 [Rx] Allergies/Adverse Reactions: Allergies Amoxicillin Allergy (Verified 12/01/16 07:59) Rash ampicillin Allergy (Verified 12/01/16 07:59) Rash Donepezil [From Aricept] Allergy (Verified 12/01/16 07:59) Vomiting Primary care physician: Carey Hawley - Patient Status Disposition: Home, Self-Care Condition: Good - Discharge Instructions Follow Up With: Carey Hendrickson MD [Primary Care Provider] - - Hospital Course Hospital course: Ms. Coronado is a 71 year old female - Time Spent with Patient Total time spent providing and/or coordinating discharge services: <Lorenzo Andrew Paul - Last Filed: 12/02/16 08:10> Date of Encounter: 12/02/16 Time of Encounter: 08:10 - Discharge Diagnosis (1) NSTEMI (non-ST elevated myocardial infarction) Priority: Secondary Status: Chronic (2) Atrial flutter by electrocardiogram Priority: Secondary Status: Chronic (3) HTN (hypertension) Priority: Secondary Status: Chronic Qualifiers: Hypertension type: unspecified secondary hypertension Qualified Code(s): I15.9 - Secondary hypertension, unspecified; I15 - Secondary hypertension (4) Diabetes Priority: Secondary Status: Chronic Qualifiers: Diabetes mellitus type: type 2 Diabetes mellitus complication status: with unspecified complications Diabetes mellitus intermediate teacher insulin use: unspecified intermediate teacher insulin use status Qualified Code(s): E11.8 - Type 2 diabetes mellitus with unspecified complications (5) Dementia Priority: Secondary Status: Chronic Qualifiers: Dementia type: unspecified type Dementia behavioral disturbance: without behavioral disturbance Qualified Code(s): F03.90 - Unspecified dementia without behavioral disturbance (6) Tobacco abuse Priority: Secondary Status: Chronic (7) Displaced fracture of proximal end of left humerus Priority: Primary Status: Acute Qualifiers: Encounter type: subsequent encounter Fracture type: closed Fracture morphology: other fracture Fracture healing: with routine healing Qualified Code(s): S42.292D - Other displaced fracture of upper end of left humerus, subsequent encounter for fracture with routine healing (8) Acute blood loss anemia Priority: Primary Status: Acute Primary care physician: Carey Hawley - Patient Status Functional capacity at discharge: independent ambulation Overall status at discharge: patient is progressing back to baseline - Hospital Course Hospital course: Ms. Coronado is a 71 year old female The patient had an uneventful postoperative course. They received antibiotics and physical therapy and were discharged in stable condition. There will follow -up in the office in 2 weeks. - Time Spent with Patient Total time spent providing and/or coordinating discharge services:
--- NOTE | 2016-12-01 06:36 | History & Physical Report ---
Date of Encounter: 12/01/16 Time of Encounter: 06:36 24 Hour HP Update - Instructions Instructions: If the History and Physical is less than 30 days old and was completed prior to A.M. admission and or procedure and has NOT been updated on calendar day of procedure please complete this update prior to performing procedure. - Update Patient reports changes in Medical Condition: No Changes in examination, assessment, or condition: No Changes in Medication: No Preop tests/diagnostics Reviewed: Yes Surgery Remains Indicated: Yes Consent for Planned Operative Procedure(s) Verified: Yes - Pre-Operative Checklist Preoperative Checklist Indicated: No Prophylactic Antibiotic Ordered: Yes Is VTE Prophylaxis Indicated?: Yes
--- NOTE | 2016-12-01 07:15 | Anesthesia Evaluation PreOp ---
Date of Encounter: 12/01/16 Time of Encounter: 07:52 - Past History Planned Operation: L total shoulder, reverse ball & socket Cardiac History: HTN, Hyperlipidemia, Arrhythmia (A fib/A flutter medically converted to ) Pulmonary History: Smoker, COPD (uses 3L oxygen at night and prn) [employer] History: Denies Any Significant HX Other Medical History: Diabetes Type II (oral medications only), Other (hx R breast cancer and R lymphedema) Anesthesia History: Past Anesthesia, Problems (nausea after some surgeries) Alcohol Use: none Drug use: none Medications and Allergies Albuterol Neb [Proventil Neb] 2.5 mg IH TID PRN 10/24/16 [History] Albuterol Sulfate [Ventolin Hfa] 2 puff IH Q4-6H PRN 10/24/16 [History] Budesonide/Formoterol 160/4.5 [Symbicort 160/4.5] 2 puff IH BIDR 10/24/16 [ History] Chlorthalidone 25 mg PO QAM 10/24/16 [History] Cholecalciferol (Vitamin D3) [Vitamin D3] 50,000 unit PO QWEEK 10/24/16 [History ] FLUoxetine HCl [Prozac] 20 mg PO DAILY 10/24/16 [History] Fluticasone Propionate Nasal [Flonase] 2 spray NS DAILY 10/24/16 [History] Gabapentin [Neurontin] 600 mg PO HS 10/24/16 [History] GlipiZIDE XL (24 HR) [Glucotrol XL] 10 mg PO BID 10/24/16 [History] Levothyroxine [Synthroid] 112 mcg PO QAM 10/24/16 [History] Liraglutide [Victoza 2-Sandip] 1.2 mg SQ DAILY 10/24/16 [History] Losartan Potassium [Cozaar] 50 mg PO DAILY 10/24/16 [History] Lovastatin [Mevacor] 20 mg PO DAILY 10/24/16 [History] Meclizine HCl [Verticalm] 25 mg PO Q6H PRN 10/24/16 [History] Omeprazole [PriLOSEC] 40 mg PO DAILY 10/24/16 [History] Oxygen 2 l NS CONT 10/24/16 [History] Pioglitazone [Actos] 45 mg PO DAILY 10/24/16 [History] Raloxifene [Evista] 60 mg PO DAILY 10/24/16 [History] Sertraline [Zoloft] 150 mg PO DAILY 10/24/16 [History] Tiotropium [Spiriva] 1 puff IH DAILY 10/24/16 [History] Aspirin 81 mg PO DAILY tab.chew 10/30/16 [Rx] Benzonatate [Tessalon] 200 mg PO TID PRN #0 capsule 10/30/16 [Rx] Ferrous Sulfate 325 mg PO TIDWM tablet 10/30/16 [Rx] Folic Acid 5 mg PO DAILY tablet 10/30/16 [Rx] Metoprolol XL (24 HR) Succ [Toprol Xl] 25 mg PO DAILY tab.er.24h 10/30/16 [Rx] Nicotine Patch [Nicoderm] 14 mg TD DAILY PRN #0 patch.td24 10/30/16 [Rx] amLODIPine [Norvasc] 10 mg PO DAILY #7 tablet 10/30/16 [Rx] OxyCODONE/APAP 5/325 [Percocet 5/325 MG] 1 each PO Q6HR PRN #12 tablet 11/21/16 [Rx] OxyCODONE Immed Rel [Roxicodone 5 MG] 5 - 10 mg PO Q6HR PRN #40 tablet 11/28/16 [Rx] Allergies Amoxicillin Allergy (Unverified 11/29/16 14:45) Rash ampicillin Allergy (Verified 06/15/15 14:14) Rash Donepezil [From Aricept] Allergy (Unverified 11/29/16 14:45) Vomiting - Meds/Allergy Pre-op Review Medications Reviewed: Yes Allergies Reviewed: Yes Beta Blockers on Current Med List: Yes If Beta Blockers taken, Date/Time (Last Dose taken): 12-01-16 metoprolol 6 am Anesthesia Results - Labs Laboratory Tests 11/29/16 11/29/16 11/29/16 14:59 14:59 14:59 WBC 9.1 Hgb 9.8 L Hct 32.1 L Plt Count 334 PT 11.6 INR 1.1 APTT 28.7 Sodium 136 Potassium 3.7 Chloride 96 L Carbon Dioxide 30 H BUN 37 H Creatinine 1.08 Est GFR ( Amer) > 60 Est GFR (Non-Af Amer) 50 L BUN/Creatinine Ratio 34 H Est Mean Plasma Glucose Hemoglobin A1c 11/29/16 14:59 WBC Hgb Hct Plt Count PT INR APTT Sodium Potassium Chloride Carbon Dioxide BUN Creatinine Est GFR ( Amer) Est GFR (Non-Af Amer) BUN/Creatinine Ratio Est Mean Plasma Glucose 123 Hemoglobin A1c 5.9 H - Imaging EKG: report reviewed, image reviewed (A fib/flutter, marked LAD, poor R wave progression) Additional studies: TTE: LVEF 65-70% mod concentric LVH no sign valvular dysfunction Anesthesia Exam Last Vital Signs Temp 97.7 F 12/01/16 07:50 Pulse 68 12/01/16 07:50 Resp 18 12/01/16 07:50 BP 129/68 12/01/16 07:50 Pulse Ox 96 12/01/16 07:50 Weight: 94 kg NPO (# of Hours): >> 8 hrs - HEENT Pupil (Motor): Pupils equal, EOMI Mallampati: III Teeth: Missing, Poor dentition Oral Opening: Greater than 3 - [employer] LOC: Oriented - Cardiac Rhythm: Regular Murmur: None - Pulmonary Breath Sounds: bilateral Clear Respiratory Effort: Symmetrical Anesthesia Assess/Plan ASA Score: 4 Modified Alva Scale for Level of Consciousness: Cooperative, oriented, and tranquil Anesthetic Plan: General, Regional Monitoring Plan: Standard Monitors Recovery Plan: PACU
[2016-12-01] MEDS ORDERED: CeFAZolin Pre 2,000 MG/100 ML 2,000 MG/100 ML BAG IVPB ONE (07:54)
[2016-12-01] MEDS ORDERED: Lidocaine -MPF 1% 2 ML VIAL ID ONE (07:54)
[2016-12-01] MEDS ORDERED: Albuterol 2.5 MG/3 ML NEBULIZER IH ONE (07:54)
[2016-12-01] MEDS ORDERED: Albuterol 2.5 MG/3 ML NEBULIZER ONE (07:58)
[2016-12-01] MEDS ORDERED: Ringers Solution, Lactated 1,000 ML IVC SCH ×2 (08:00→11:27)
[2016-12-01] MEDS ORDERED: Lidocaine -MPF 2% 2 ML VIAL ONE ×2 (08:11→10:22)
[2016-12-01] MEDS ORDERED: ROPIVACAINE HCL/PF 0.5% 30 ML VIAL ONE (08:11)
[2016-12-01] MEDS ORDERED: Vancomycin 1,500 MG in D5% in Water 250 ML IVPB ONE (08:22)
--- NOTE | 2016-12-01 08:48 | Anesthesia Procedures ---
Date of Encounter: 12/01/16 Time of Encounter: 08:49 Procedures: Anesthesia - Nerve Block Procedure Date: 12/01/16 Time: 08:46 Allergies/Adv Reactions: Allergies Amoxicillin Allergy (Verified 12/01/16 07:59) Rash ampicillin Allergy (Verified 12/01/16 07:59) Rash Donepezil [From Aricept] Allergy (Verified 12/01/16 07:59) Vomiting Pre-op Diagnosis: left shoulder fx Surgical Procedure: total shoulder Checklist: Correct Patient Identifier, Correct procedure, History checked Correct side: Left Blood Thinner: No Monitor Applied: EKG, BP, Pulse Oximetry Supplemental Oxygen via Nasal Cannula (L/min): 3 Sedation: Versed (mg): 1 Sedation: Fentanyl (mcg): 50 Indication: Post Op Analgesia Pre-op Neuro Deficits: No Block Type: Supraclavicular, Other (superficial cervical plexus) Catheter placed: No Sterile Technique: Yes Ultrasound used: Yes Anatomy identified: Yes Visual spread of Local: Yes Neuro Stimulation: No Nerve Stimulator Range: 0.2 - 0.4 mA Blood on Needle Aspiration: No Smooth Injection of Local: Yes Pain with Injection of Local: Yes Prep: Chlorhexadine Needle: 22 x 50 mm Stimuplex Local: Ropivacaine (0.5% ropivicaine) Volume (cc): 25 Number of Attempts: 1 Complications: None/effective block
[2016-12-01] MEDS ORDERED: EPHEDrine 50 MG/ML VIAL ONE (09:09)
--- NOTE | 2016-12-01 09:54 | Orthopedic Operative Note ---
Date of procedure: 12/01/16 Pre-op diagnosis: Displaced left proximal humerus fracture Post-op diagnosis: same Procedure: Procedure: Left Reverse total shoulder replacment, Estimated blood loss: 100 cc Hardware: Metal and polyethylene replacement Arthrex glenoid baseplate: Small , 2 4.5 screws. 1 6.5 screw, glenosphere: 39+4 , humeral stem:7 , poly insert: 3 constrained Procedural Notes: Displaced proximal humerus fracture Operative procedure: The patient was brought to the operating room and placed on the operating room table. After general anesthesia was administered the operative shoulder was examined. Findings were noted. The patient was placed in the modified beachchair position. All pressure points were padded appropriately. And the head was stabilized in the neutral position. The operative extremity was prepped and draped in the sterile surgical fashion. The patient received IV antibiotics prior to skin incision. A standard deltopectoral approach was made to the operative shoulder. Incision was made to the skin and subcutaneous tissue,hemo stasis was obtained with Bovie cautery. Using careful blunt dissection the cephalic vein was identified and mobilized medially. The deltopectoral interval was developed and the clavipectoral fascia was incised. The lesser tuberosity was identified and tagged with 2 #2 fiber loops and 2 #2 FiberWire suture. The greater tuberosity was identified and tagged with 6 #5 FiberWire suture. The humeral head was removed. Anterior and posterior Bankart retractors were placed to expose the glenoid. The glenoid guide was seated and the centering hole was made. It was reamed with the appropriate reamer. The small baseplate was seated and secured with (2 ) 4.5 screws and one 6.5 screw. The baseplate was irrigated and dried and the appropriate 39+4 was seated and secured with the Alexis taper. The Alexis taper was tested and found to be secure the humerus was redislocated and prepared with the diaphyseal reamers, followed by a broaching process up to the appropriate size 7 in 20 degrees of retro-version. Trial reduction found the shoulder to be relocatable. Trial components were removed and [address] on either side of the bicpital groove and filled with #5 fiberwire suture for vertical fixation of the tuberosities. The real 7 humeral component was impaced in place in 20 degrees of retroversion. Trial reduction found the shoulder to be relocatable and stable with the appropriate 3 constrained insert. Trial component was removed and the real 3 constrained polyethylene was seated and secured the shoulder was reduced. The shoulder had excellent motion and excellent stability and no evidence of dislocation. The greater tuberosity was reduced and repaired to the implant with 2 # 5 fiberwire sutures. the lesser tuberosity was reduced and repaired to this construct with 2 #5 fiberwire sutures. Vertical fixation of the tuberosities was accomplished with the #5 fiberwire sutures in the humeral shaft, incoporating the bices in a box stitch type repair. The deep tissue was irrigated with pulse irrigation. The deltopectoral interval was closed with a running #1 PDS suture, subcutaneous tissue was irrigated and closed with 0 PDS suture, the skin was closed with Dermabond. The patient was placed in a sterile dressing, abduction brace and extubated. The patient was then transferred to the recovery room in stable condition. Anesthesia: BRANDT Surgeon: Lorenzo Andrew Nurses' Registry Director: Karly Canela Condition: stable Disposition: PACU
[2016-12-01] MEDS ORDERED: *HR* HYDROmorphone (PF) 1 MG/ML SYRINGE IVP PRN ×2 (10:20→11:27)
[2016-12-01] MEDS ORDERED: *HR* Succinylcholine 200 MG/10 ML VIAL IVP ONE (10:22)
[2016-12-01] MEDS ORDERED: *HR* Propofol 200 MG/20 ML VIAL IVP ONE (10:22)
[2016-12-01] MEDS ORDERED: *HR* FentaNYL (PF) 100 MCG/2 ML VIAL ONE (10:22)
[2016-12-01] MEDS ORDERED: *HR* Rocuronium Bromide 50 MG/5 ML VIAL ONE (10:22)
[2016-12-01] MEDS ORDERED: Lidocaine -MPF 4% 5 ML AMPUL ONE (10:22)
[2016-12-01] MEDS ORDERED: Ondansetron 4 MG/2 ML VIAL ONE (10:22)
[2016-12-01] MEDS ORDERED: Dexamethasone 4 MG/ML VIAL ONE (10:22)
[2016-12-01] MEDS ORDERED: *HR* Midazolam HCl 2 MG/2 ML VIAL ONE (10:22)
--- NOTE | 2016-12-01 10:47 | Anesthesia Evaluation Post Op ---
Date of Encounter: 12/01/16 Time of Encounter: 10:46 - Vital Signs Vital Signs: Last Vital Signs Temp 98.0 F 12/01/16 10:10 Pulse 78 12/01/16 10:30 Resp 16 12/01/16 10:30 BP 135/66 12/01/16 10:30 Pulse Ox 93 12/01/16 10:30 - Lungs Lungs: Clear Ascult./Percussion - Airway Airway: Non-obstructed - Cardiovascular Regular Rate - Mental Status Mental Status: Alert & Oriented, Answers Appropriately - Pain Pain Scale: 2 - Nausea Vomiting Nausea Vomiting: Not Present - Hydration Hydration: NPO - Discharge PostOp Status: Transfer Patient to floor
[2016-12-01 10:54] LABS: Hematocrit 30.3 % (35.3-44.9); Hemoglobin 9.8 g/dL (11.5-15.4)
[2016-12-01] MEDS ORDERED: *HR* Dextrose 50 % in Water (Syg) 50 ML SYRINGE IVP PRN (11:27)
[2016-12-01] MEDS ORDERED: Temazepam 15 MG CAPSULE PO PRN (11:27)
[2016-12-01] MEDS ORDERED: Sennosides 8.6 MG TABLET PO PRN (11:27)
[2016-12-01] MEDS ORDERED: Naloxone 0.4 MG/ML INJ IVP PRN (11:27)
[2016-12-01] MEDS ORDERED: Benzonatate 100 MG CAPSULE PO PRN (11:27)
[2016-12-01] MEDS ORDERED: Nicotine 14 MG PATCH.TD24 TD PRN (11:27)
[2016-12-01] MEDS ORDERED: NON-FORMULARY MEDICATION 1 EACH EACH (Oxygen [Oxygen] 2 L) NS SCH (11:27)
[2016-12-01] MEDS ORDERED: Albuterol 2.5 MG/3 ML NEBULIZER IH PRN (11:27)
[2016-12-01] MEDS ORDERED: *HR* OxyCODONE Immed Rel 5 MG TABLET PO PRN (11:27)
[2016-12-01] MEDS ORDERED: Ondansetron 4 MG/2 ML VIAL IVP PRN (11:27)
[2016-12-01] MEDS ORDERED: MOM Conc 10 ML UD.LIQ PO PRN (11:27)
[2016-12-01] MEDS ORDERED: D5% in Water 1,000 ML IVC PRN (11:27)
[2016-12-01] MEDS ORDERED: Fluticasone Propionate Nasal 50 MCG/SPRAY BOTTLE NS SCH (11:27)
[2016-12-01] MEDS ORDERED: Dextrose Gel 15 GM PO PRN ×2 (11:27)
[2016-12-01] MEDS: *HR* GlipiZIDE XL (24 HR) 10 MG TABLET PO SCH ×2 (12:17→17:00)
[2016-12-01] MEDS: Metoprolol XL (24 HR) Succ 25 MG TAB.ER.24H PO SCH (12:18)
[2016-12-01] MEDS: *HR* Pioglitazone 45 MG TABLET PO SCH (12:28)
[2016-12-01] MEDS: Aspirin 81 MG TAB.CHEW PO SCH (12:28)
[2016-12-01] MEDS: Cholecalciferol (D-3) 1,000 UNIT TABLET PO SCH (12:29)
[2016-12-01] MEDS: FLUoxetine 20 MG CAPSULE PO SCH (12:29)
[2016-12-01] MEDS: amLODIPine 5 MG TABLET PO SCH (12:29)
[2016-12-01] MEDS: Folic Acid 1 MG TABLET PO SCH (12:29)
[2016-12-01] MEDS: (Liraglutide [Victoza 2-Pak] 1.2 MG) SQ SCH (12:29)
[2016-12-01] MEDS: Insulin LISPRO 300 UNITS/3 ML VIAL SQ SCH ×2 (12:30→17:00)
[2016-12-01] MEDS: Tiotropium 18 MCG inhalation IH SCH (15:14)
[2016-12-01] MEDS: Budesonide/Formoterol 160/4.5 MDI IH SCH ×2 (15:15→20:17)
[2016-12-01] MEDS: *HR* Enoxaparin 30 MG/0.3 ML SYRINGE SQ SCH (17:00)
[2016-12-01] MEDS: ceFAZolin 2,000 MG in D5% in Water 100 ML IVPB SCH (17:00)
[2016-12-01] MEDS: *HR* OxyCODONE Immed Rel 5 MG TABLET PO PRN (17:10)
[2016-12-01] MEDS ORDERED: *HR* Enoxaparin 30 MG/0.3 ML SYRINGE SQ SCH (18:00)
[2016-12-01] MEDS ORDERED: Gabapentin 300 MG CAPSULE PO SCH (21:00)
[2016-12-01] MEDS ORDERED: Insulin LISPRO 300 UNITS/3 ML VIAL SQ SCH (21:00)
[2016-12-02] MEDS: ceFAZolin 2,000 MG in D5% in Water 100 ML IVPB SCH (00:52)
[2016-12-02] MEDS: *HR* OxyCODONE Immed Rel 5 MG TABLET PO PRN ×3 (00:55→15:57)
[2016-12-02 04:35] LABS: Hematocrit 27.8 % (35.3-44.9); Hemoglobin 8.7 g/dL (11.5-15.4)
[2016-12-02] MEDS: *HR* Enoxaparin 30 MG/0.3 ML SYRINGE SQ SCH (06:29)
[2016-12-02] MEDS: Insulin LISPRO 300 UNITS/3 ML VIAL SQ SCH (07:18)
[2016-12-02] MEDS: Cholecalciferol (D-3) 1,000 UNIT TABLET PO SCH (07:25)
[2016-12-02] MEDS: FLUoxetine 20 MG CAPSULE PO SCH (07:26)
[2016-12-02] MEDS: Folic Acid 1 MG TABLET PO SCH (07:26)
[2016-12-02] MEDS: Metoprolol XL (24 HR) Succ 25 MG TAB.ER.24H PO SCH (07:27)
[2016-12-02] MEDS: amLODIPine 5 MG TABLET PO SCH (07:27)
[2016-12-02] MEDS: Aspirin 81 MG TAB.CHEW PO SCH (07:27)
[2016-12-02] MEDS: *HR* Pioglitazone 45 MG TABLET PO SCH (07:27)
[2016-12-02] MEDS: (Liraglutide [Victoza 2-Pak] 1.2 MG) SQ SCH (07:28)
[2016-12-02] MEDS: *HR* GlipiZIDE XL (24 HR) 10 MG TABLET PO SCH (07:28)
[2016-12-02] MEDS: Budesonide/Formoterol 160/4.5 MDI IH SCH (07:58)
[2016-12-02] MEDS: Tiotropium 18 MCG inhalation IH SCH (07:58)
--- NOTE | 2016-12-02 08:11 | Orthopedics Progress Note ---
Date of Encounter: 12/02/16 Time of Encounter: 08:11 - Assessment and Plan (1) NSTEMI (non-ST elevated myocardial infarction) Current Visit: No Status: Chronic (2) Atrial flutter by electrocardiogram Current Visit: No Status: Chronic (3) HTN (hypertension) Current Visit: No Status: Chronic Qualifiers: Hypertension type: unspecified secondary hypertension Qualified Code(s): I15.9 - Secondary hypertension, unspecified; I15 - Secondary hypertension (4) Diabetes Current Visit: No Status: Chronic Qualifiers: Diabetes mellitus type: type 2 Diabetes mellitus complication status: with unspecified complications Diabetes mellitus halfway insulin use: unspecified halfway insulin use status Qualified Code(s): E11.8 - Type 2 diabetes mellitus with unspecified complications (5) Dementia Current Visit: No Status: Chronic Qualifiers: Dementia type: unspecified type Dementia behavioral disturbance: without behavioral disturbance Qualified Code(s): F03.90 - Unspecified dementia without behavioral disturbance (6) Tobacco abuse Current Visit: No Status: Chronic (7) Displaced fracture of proximal end of left humerus Current Visit: Yes Status: Acute Qualifiers: Encounter type: subsequent encounter Fracture type: closed Fracture morphology: other fracture Fracture healing: with routine healing Qualified Code(s): S42.292D - Other displaced fracture of upper end of left humerus, subsequent encounter for fracture with routine healing (8) Acute blood loss anemia Current Visit: Yes Status: Acute Subjective Interval history: Patient was seen this morning doing well without complaints. Afebrile vital signs stable. Operative extremity: Neurovascularly intact Dressing clean dry and intact Calves nontender Assessment and plan: Continue with postoperative care Hematocrit 28 discharged today Objective Vital signs: Vital Signs Temp Pulse Resp BP Pulse Ox 12/02/16 06:39 98.5 F 73 16 107/68 96 12/02/16 05:15 98.4 F 77 15 105/70 97 12/02/16 00:03 97.7 F 71 16 102/50 99 12/01/16 20:17 18 97 12/01/16 19:56 98.6 F 72 15 110/62 97 12/01/16 14:20 69 16 117/56 98 12/01/16 13:55 98.1 F 69 16 117/56 98 12/01/16 13:14 97.9 F 70 15 133/80 95 12/01/16 12:00 98.0 F 65 15 155/71 98 12/01/16 11:27 97.9 F 70 12 117/64 94 12/01/16 10:58 97.8 F 76 12 123/57 95 12/01/16 10:40 97.8 F 73 14 131/79 97 12/01/16 10:30 78 16 135/66 93 12/01/16 10:20 85 14 113/64 100 12/01/16 10:10 98.0 F 80 14 141/79 100 12/01/16 08:40 72 113/57 96 12/01/16 08:20 62 128/90 96 Intake and Output 12/01/16 12/02/16 12/02/16 23:59 07:59 15:59 Intake Total 400 / 400 Balance 400 / 400 Intake: IV Fluids 100 / 100 Ancef 2,000 MG In 100 / 100 Dextrose 5% 100 ML @ 200 mls/hr IVPB Q8HR PAUL Rx#: [id number] Oral 300 / 300 Other: # Voids 1 # Urine Diapers 1 Blood Glucose* 265 137 - Labs CBC & BMP: 12/02/16 04:16 Labs: Abnormal lab results Hgb 8.7 g/dL (11.5-15.4) L 12/02/16 04:16 Hct 27.8 % (35.3-44.9) L 12/02/16 04:16 POC Glucose 265 (58-89) H 12/01/16 19:55 - VTE Documentation of Mechanical Device: Venous foot pump, device Consult Discharge Plan - Plan Referrals: Carey Hendrickson MD [Primary Care Provider] -
[2016-12-02 15:45] VITALS: BP 129/76
== END 2016-12-02 16:19 | disposition home or self-care (01) | DRG 483 ==
LOC: SAMDAY 07:09 → 3NENU 10:50
PROVIDERS: ADMIT Orthopaedic Surgery; ATTEND Orthopaedic Surgery

== ENCOUNTER 2020-04-11 07:05 | Inpatient (IN) ==
[2020-04-11 07:44] LABS: INR 1.1
[2020-04-11 07:45] LABS: Basophils % 0.1 %; Hematocrit 32.4 % (35.3-44.9); Hemoglobin 9.6 g/dL (11.5-15.4); Immature Granulocytes % 0.4 % (0-4); Lymphocytes # 0.6 K/mcL (0.6-4.6); Lymphocytes % 7.5 %; Mean Corpuscular HGB Conc 29.6 g/dL (31.6-35.5); Mean Corpuscular Hemoglobin 29.4 pg (28.0-33.3); Mean Corpuscular Volume 99.1 fL (83.0-100.0); Mean Platelet Volume 10.1 fL (9.4-12.4); Monocytes # 0.3 K/mcL (0.0-1.3); Monocytes % 4.1 %; Neutrophils # 6.5 K/mcL (1.6-8.9); Platelet Count 201 K/mcL (140-400); Red Blood Count 3.27 M/mcL (3.82-4.97); Red Cell Distribution Width 13.2 % (11.5-14.5); Segmented Neutrophils % 87.9 %; White Blood Count 7.4 K/mcL (4.3-11.1)
[2020-04-11 07:46] LABS: Activated Partial Thrombo Time 32.4 Seconds (26.0-36.0)
[2020-04-11 08:09] LABS: Albumin 3.5 g/dL (3.5-5.7); Albumin/Globulin Ratio 1.1 (1.1-2.2); Bilirubin,Direct 0.1 mg/dL (0.0-0.2); Bilirubin,Indirect 0.2 mg/dL (0.0-1.0); Bilirubin,Total 0.3 mg/dL (0.3-1.0); Calcium 8.5 mg/dL (8.6-10.3); Globulin 3.3 g/dL (2.4-3.5); Phosphorous 4.1 mg/dL (2.7-4.5); Potassium 3.6 mEq/L (3.5-5.1); Total Protein 6.8 g/dL (6.4-8.9); Troponin I 0.11 ng/mL (< 0.04)
[2020-04-11] MEDS ORDERED: *HR* Dextrose 50 % in Water (Vial) 50 ML VIAL ONE (08:10)
[2020-04-11] MEDS ORDERED: *HR* Dextrose 50 % in Water (Vial) 50 ML VIAL IVP ONE (08:11)
[2020-04-11] MEDS ORDERED: Naloxone 0.4 MG/ML INJ IVP PRN (09:03)
[2020-04-11] MEDS ORDERED: D5% in Water 1,000 ML IVC PRN (09:03)
[2020-04-11] MEDS ORDERED: *HR* OxyCODONE Immed Rel 5 MG TABLET PO PRN (09:03)
[2020-04-11] MEDS ORDERED: Dextrose Gel 15 GM/37.5 ML TUBE PO PRN ×2 (09:03)
[2020-04-11] MEDS ORDERED: *HR* HYDROcodone/Acet 5/325 mg TABLET PO PRN (09:03)
[2020-04-11] MEDS ORDERED: Acetaminophen 325 MG TABLET PO PRN (09:03)
[2020-04-11] MEDS ORDERED: Ondansetron 4 MG/2 ML VIAL IVP PRN (09:03)
[2020-04-11] MEDS ORDERED: *HR* Dextrose 50 % in Water (Vial) 50 ML VIAL IVP PRN (09:03)
[2020-04-11] MEDS ORDERED: Furosemide 40 MG/4 ML VIAL IVP SCH (10:00)
[2020-04-11] MEDS: Insulin LISPRO 300 UNITS/3 ML VIAL SQ SCH ×2 (11:02→17:42)
[2020-04-11 11:06] LABS: Adenovirus Not Detected (Not Detect); Coronavirus 229E Not Detected (Not Detect); Coronavirus HKU1 Not Detected (Not Detect); Coronavirus NL63 Not Detected (Not Detect); Coronavirus OC43 Not Detected (Not Detect)
[2020-04-11 11:08] LABS: Bordetella Pertussis Not Detected (Not Detect); Chlamydophila pneumoniae Not Detected (Not Detect); Human Metapneumovirus Not Detected (Not Detect); Human Rhinovirus/Enterovirus Not Detected (Not Detect); Influenza A Subtype 2009 H1 Not Detected (Not Detect); Influenza B Not Detected (Not Detect); Mycoplasma pneumoniae Not Detected (Not Detect); Parainfluenza Virus 1 Not Detected (Not Detect); Parainfluenza Virus 2 Not Detected (Not Detect); Parainfluenza Virus 3 Not Detected (Not Detect); Parainfluenza Virus 4 Not Detected (Not Detect); Respiratory Syncytial Virus Not Detected (Not Detect); SARS-CoV-2 DETECTED (Not Detect)
[2020-04-11] MEDS: Furosemide 40 MG/4 ML VIAL IVP SCH (12:29)
[2020-04-11] MEDS: *HR* Heparin 5,000 UNIT/ML VIAL SQ SCH (17:42)
[2020-04-11] MEDS ORDERED: Benzonatate 100 MG CAPSULE PO PRN (17:48)
[2020-04-11] MEDS: Gabapentin 300 MG CAPSULE PO SCH (20:58)
[2020-04-11] MEDS: Budesonide/Formoterol 160/4.5 1 PUFF INH IH SCH (21:36)
[2020-04-11] MEDS ORDERED: Insulin LISPRO 300 UNITS/3 ML VIAL SQ ONE (22:38)
[2020-04-12 02:02] LABS: Hematocrit 28.5 % (35.3-44.9); Hemoglobin 8.7 g/dL (11.5-15.4); Immature Granulocytes % 0.5 % (0-4); Lymphocytes # 0.5 K/mcL (0.6-4.6); Lymphocytes % 20.4 %; Mean Corpuscular HGB Conc 30.5 g/dL (31.6-35.5); Mean Corpuscular Hemoglobin 29.6 pg (28.0-33.3); Mean Corpuscular Volume 96.9 fL (83.0-100.0); Mean Platelet Volume 10.4 fL (9.4-12.4); Monocytes # 0.3 K/mcL (0.0-1.3); Monocytes % 12.2 %; Neutrophils # 1.5 K/mcL (1.6-8.9); Platelet Count 166 K/mcL (140-400); Red Blood Count 2.94 M/mcL (3.82-4.97); Red Cell Distribution Width 12.8 % (11.5-14.5); Segmented Neutrophils % 66.9 %
[2020-04-12 02:10] LABS: White Blood Count 2.2 K/mcL (4.3-11.1)
[2020-04-12 02:22] LABS: Albumin 3.2 g/dL (3.5-5.7); Albumin/Globulin Ratio 1.1 (1.1-2.2); Bilirubin,Direct 0.1 mg/dL (0.0-0.2); Bilirubin,Indirect 0.1 mg/dL (0.0-1.0); Bilirubin,Total 0.2 mg/dL (0.3-1.0); Calcium 8.5 mg/dL (8.6-10.3); Chol/HDL Ratio 4.2 (0-4.9); Potassium 3.5 mEq/L (3.5-5.1); Total Protein 6.2 g/dL (6.4-8.9)
[2020-04-12] MEDS: *HR* Heparin 5,000 UNIT/ML VIAL SQ SCH ×2 (05:04→16:36)
[2020-04-12] MEDS: Folic Acid 1 MG TABLET PO SCH (08:25)
[2020-04-12] MEDS: Aspirin 81 MG TAB.CHEW PO SCH (08:25)
[2020-04-12] MEDS: Cyanocobalamin (B-12) 1,000 MCG TABLET PO SCH (08:26)
[2020-04-12] MEDS: Metoprolol XL (24 HR) Succ 25 MG TAB.ER.24H PO SCH (08:26)
[2020-04-12] MEDS: Fluticasone Propionate Nasal 50 MCG/SPRAY BOTTLE NS SCH (08:26)
[2020-04-12] MEDS: Furosemide 40 MG/4 ML VIAL IVP SCH (08:26)
[2020-04-12] MEDS: Dexamethasone 4 MG/ML VIAL IVP SCH ×2 (08:50→20:44)
[2020-04-12] MEDS: Insulin LISPRO 300 UNITS/3 ML VIAL SQ SCH ×4 (08:50→22:24)
[2020-04-12] MEDS ORDERED: Dexamethasone 4 MG/ML VIAL IVP SCH (09:00)
[2020-04-12] MEDS: Budesonide/Formoterol 160/4.5 1 PUFF INH IH SCH ×2 (10:58→22:01)
[2020-04-12] MEDS: Tiotropium 18 MCG inhalation IH SCH (10:58)
[2020-04-12 12:47] LABS: ABG Base Excess 11 mEq/L (-2 to 3); ABG HCO3 38 mEq/L (21-27); ABG Oxygen Saturation 94 % (95-98); ABG PCO2 65 mmHg (35-45); ABG PH 7.38 pH Units (7.32-7.45); ABG PO2 77 mmHg (85-104); ABG TCO2 40 mEq/L (20-26)
[2020-04-12] MEDS: Gabapentin 300 MG CAPSULE PO SCH (20:44)
[2020-04-13] MEDS: *HR* Heparin 5,000 UNIT/ML VIAL SQ SCH ×2 (05:54→16:28)
[2020-04-13 05:57] LABS: Hematocrit 30.2 % (35.3-44.9); Hemoglobin 9.2 g/dL (11.5-15.4); Mean Corpuscular HGB Conc 30.5 g/dL (31.6-35.5); Mean Corpuscular Hemoglobin 29.1 pg (28.0-33.3); Mean Corpuscular Volume 95.6 fL (83.0-100.0); Mean Platelet Volume 10.1 fL (9.4-12.4); Platelet Count 181 K/mcL (140-400); Red Blood Count 3.16 M/mcL (3.82-4.97); Red Cell Distribution Width 12.5 % (11.5-14.5)
[2020-04-13 06:15] LABS: % Iron Saturation 17 % (15-50); Iron 46 mcg/dL (50-170); Transferrin 190 mg/dL (203-362)
[2020-04-13 06:20] LABS: BUN/Creatinine Ratio 42 (6-26); Blood Urea Nitrogen 53 mg/dL (8-23); Carbon Dioxide 35 mEq/L (23-29); Chloride 95 mEq/L (98-107); Glucose 250 mg/dL (70-105); Lactate Dehydrogenase 167 Units/L (140-271); Magnesium 1.8 mg/dL (1.6-2.6); Osmolality,Calculated 307 (280-300); Phosphorous 3.4 mg/dL (2.7-4.5); Potassium 3.9 mEq/L (3.5-5.1); Sodium 137 mEq/L (136-145); eGFR For African Americans 50 (> 60); eGFR For Non-African Americans 41 (> 60)
[2020-04-13 06:32] LABS: Ferritin 241 ng/mL (10-120)
[2020-04-13 06:37] LABS: Folate > 22.3 ng/mL (3.0-16.0); Vitamin B12 1323 pg/mL (250-1100)
[2020-04-13 08:12] LABS: C-Reactive Protein < 5 mg/L (Less than 10)
[2020-04-13] MEDS: Budesonide/Formoterol 160/4.5 1 PUFF INH IH SCH ×2 (09:19→22:12)
[2020-04-13] MEDS: Tiotropium 18 MCG inhalation IH SCH (09:19)
[2020-04-13] MEDS: Insulin LISPRO 300 UNITS/3 ML VIAL SQ SCH ×6 (09:33→22:35)
[2020-04-13] MEDS: Dexamethasone 4 MG/ML VIAL IVP SCH ×2 (09:36→20:00)
[2020-04-13] MEDS: Folic Acid 1 MG TABLET PO SCH (09:37)
[2020-04-13] MEDS: Aspirin 81 MG TAB.CHEW PO SCH (09:37)
[2020-04-13] MEDS: Cyanocobalamin (B-12) 1,000 MCG TABLET PO SCH (09:37)
[2020-04-13] MEDS: Furosemide 40 MG/4 ML VIAL IVP SCH (09:37)
[2020-04-13] MEDS: Metoprolol XL (24 HR) Succ 25 MG TAB.ER.24H PO SCH (09:37)
[2020-04-13] MEDS: Fluticasone Propionate Nasal 50 MCG/SPRAY BOTTLE NS SCH (10:41)
[2020-04-13] MEDS ORDERED: Vancomycin 1,500 MG/265 ML IV.SOLN IVPB SCH (17:00)
[2020-04-13] MEDS: Gabapentin 300 MG CAPSULE PO SCH (20:00)
[2020-04-13] MEDS ORDERED: Insulin DETEMIR 100 UNIT/ML X5UNITS SQ SCH (21:00)
[2020-04-13 23:36] LABS: Acinetobacter baumannii by PCR Not Detected (Not Detect); Candida albicans by PCR Not Detected (Not Detect); Candida glabrata by PCR Not Detected (Not Detect); Candida krusei by PCR Not Detected (Not Detect); Candida parapsilosis by PCR Not Detected (Not Detect); Candida tropicalis by PCR Not Detected (Not Detect); Enterobacter cloacae Cmplx PCR Not Detected (Not Detect); Enterobacteriaceae by PCR Not Detected (Not Detect); Enterococcus by PCR Not Detected (Not Detect); Escherichia coli by PCR Not Detected (Not Detect); Klebsiella oxytoca by PCR Not Detected (Not Detect); Klebsiella pneumoniae by PCR Not Detected (Not Detect); Proteus by PCR Not Detected (Not Detect); Pseudomonas aeruginosa by PCR Not Detected (Not Detect); Serratia marcescens by PCR Not Detected (Not Detect); Staphylococcus aureus by PCR Not Detected (Not Detect); Staphylococcus by PCR DETECTED (Not Detect); Streptococcus agalactiae(B)PCR Not Detected (Not Detect); Streptococcus by PCR Not Detected (Not Detect); Streptococcus pneumoniae PCR Not Detected (Not Detect); Streptococcus pyogenes (A) PCR Not Detected (Not Detect); blaKPC Carbapenem-Resist Gene Not Detected (Not Detect); mecA Methicillin-Resist Gene Not Detected (Not Detect); vanA/B Vancomycin-Resist Genes Not Detected (Not Detect)
[2020-04-14] MEDS: *HR* Heparin 5,000 UNIT/ML VIAL SQ SCH (06:08)
[2020-04-14 06:43] LABS: Hematocrit 31.5 % (35.3-44.9); Hemoglobin 9.6 g/dL (11.5-15.4); Mean Corpuscular HGB Conc 30.5 g/dL (31.6-35.5); Mean Corpuscular Hemoglobin 29.1 pg (28.0-33.3); Mean Corpuscular Volume 95.5 fL (83.0-100.0); Mean Platelet Volume 10.2 fL (9.4-12.4); Platelet Count 192 K/mcL (140-400); Red Cell Distribution Width 12.8 % (11.5-14.5)
[2020-04-14 06:45] LABS: White Blood Count 6.4 K/mcL (4.3-11.1)
[2020-04-14 07:25] LABS: Triiodothyronine (T3) Total 0.5 ng/mL (0.87-1.78)
[2020-04-14] MEDS: Metoprolol XL (24 HR) Succ 25 MG TAB.ER.24H PO SCH (08:37)
[2020-04-14] MEDS: Aspirin 81 MG TAB.CHEW PO SCH (08:37)
[2020-04-14] MEDS: Cyanocobalamin (B-12) 1,000 MCG TABLET PO SCH (08:37)
[2020-04-14] MEDS: Folic Acid 1 MG TABLET PO SCH (08:37)
[2020-04-14] MEDS: Dexamethasone 4 MG/ML VIAL IVP SCH (08:37)
[2020-04-14] MEDS: Insulin LISPRO 300 UNITS/3 ML VIAL SQ SCH ×4 (08:38→11:48)
[2020-04-14] MEDS ORDERED: Furosemide 20 MG TABLET PO SCH (09:00)
[2020-04-14] MEDS: Fluticasone Propionate Nasal 50 MCG/SPRAY BOTTLE NS SCH (09:05)
[2020-04-14 10:20] VITALS: BP 137/44
[2020-04-14] MEDS: Budesonide/Formoterol 160/4.5 1 PUFF INH IH SCH (10:27)
[2020-04-14] MEDS: Tiotropium 18 MCG inhalation IH SCH (10:29)
[2020-04-14 11:43] LABS: Estimated Average Glucose 183 mg/dl
[2020-04-15] MEDS ORDERED: Dexamethasone Sodium Phos/PF 10 MG/ML VIAL IVP SCH (09:00)
== END 2020-04-14 15:26 | DRG 177 ==
LOC: EMEROOARM 07:05 → 2NENU 07:05 → SUATTDRO 09:08 → 2NENU 10:07
PROVIDERS: ADMIT Internal Medicine; ATTEND Internal Medicine

== ENCOUNTER 2020-04-27 14:27 | Inpatient (IN) ==
[~2020-04-27 14:27] MED LIST: *HR* Etomidate 20 MG/10 ML AMPUL IVP ONE; *HR* Rocuronium Bromide 100 MG/10 ML VIAL IVP ONE
[2020-04-27] MEDS ORDERED: Ipratropium/Albuterol Neb 3 ML IH ONE ×2 (14:42→14:56)
[2020-04-27 15:23] LABS: Basophils % 0.1 %; Eosinophils % 0.1 %; Hematocrit 32.8 % (35.3-44.9); Hemoglobin 9.8 g/dL (11.5-15.4); Immature Granulocytes % 0.4 % (0-4); Lymphocytes # 0.5 K/mcL (0.6-4.6); Lymphocytes % 3.6 %; Mean Corpuscular HGB Conc 29.9 g/dL (31.6-35.5); Mean Corpuscular Hemoglobin 29.6 pg (28.0-33.3); Mean Corpuscular Volume 99.1 fL (83.0-100.0); Mean Platelet Volume 10.2 fL (9.4-12.4); Monocytes % 7.4 %; Neutrophils # 12.2 K/mcL (1.6-8.9); Platelet Count 244 K/mcL (140-400); Red Blood Count 3.31 M/mcL (3.82-4.97); Red Cell Distribution Width 12.9 % (11.5-14.5); Segmented Neutrophils % 88.4 %; White Blood Count 13.9 K/mcL (4.3-11.1)
[2020-04-27 15:34] LABS: ABG Base Excess 7 mEq/L (-2 to 3); ABG HCO3 35 mEq/L (21-27); ABG Oxygen Saturation 90 % (95-98); ABG PCO2 75 mmHg (35-45); ABG PH 7.28 pH Units (7.32-7.45); ABG PO2 68 mmHg (85-104); ABG TCO2 38 mEq/L (20-26)
[2020-04-27 15:45] LABS: Potassium 3.8 mEq/L (3.5-5.1)
[2020-04-27 15:46] LABS: Bacteria,Urine Moderate per hpf (None-Few); Bilirubin,Urine Negative (Negative); Blood,Urine Trace (Negative); Clarity,Urine Turbid (Clear); Color,Urine Yellow (Yellow); Glucose,Urine (UA) Normal (Normal); Hyaline Casts,Urine Many per lpf (None Seen); Ketones,Urine Negative (Negative); Leukocyte Esterase,Urine Large (Negative); Mucus,Urine Few per lpf (None-Few); Nitrite,Urine Negative (Negative); Protein,Urine Trace mg/dL (Neg-Trace); RBC,Urine 15-30 per hpf (0-3); Specific Gravity,Urine 1.019 (1.010-1.025); Squamous Epithelial Cell,Urine Few per hpf (None-Few); Urobilinogen,Urine Normal (Normal); WBC,Urine TNTC per hpf (0-3)
[2020-04-27 15:51] LABS: Troponin I 0.17 ng/mL (< 0.04)
[2020-04-27] MEDS ORDERED: cefTRIAXone 1,000 MG in Water for inj. (sterile) 10 ML IVP ONE (15:55)
[2020-04-27] MEDS ORDERED: 0.9 % Sodium Chloride 500 ML IVC ONE (15:59)
[2020-04-27 16:29] LABS: ABG Base Excess 7 mEq/L (-2 to 3); ABG HCO3 35 mEq/L (21-27); ABG Oxygen Saturation 98 % (95-98); ABG PCO2 65 mmHg (35-45); ABG PH 7.33 pH Units (7.32-7.45); ABG PO2 118 mmHg (85-104); ABG TCO2 37 mEq/L (20-26); Blood Gas Modality NIV; Blood Gas VT 500 cc
[2020-04-27] MEDS ORDERED: Acetaminophen 325 MG TABLET PO PRN (16:57)
[2020-04-27] MEDS ORDERED: Ondansetron 4 MG/2 ML VIAL IVP PRN (16:57)
[2020-04-27] MEDS ORDERED: Naloxone 0.4 MG/ML INJ IVP PRN ×2 (16:57→18:37)
[2020-04-27] MEDS ORDERED: Ipratropium/Albuterol Neb 3 ML IH SCH ×2 (17:00→22:00)
[2020-04-27] MEDS ORDERED: *HR* Dextrose 50 % in Water (Vial) 50 ML VIAL IVP PRN (17:02)
[2020-04-27] MEDS ORDERED: Dextrose Gel 15 GM/37.5 ML TUBE PO PRN ×2 (17:02)
[2020-04-27] MEDS ORDERED: D5% in Water 1,000 ML IVC PRN (17:02)
[2020-04-27] MEDS ORDERED: Ipratropium/Albuterol Neb 3 ML IH PRN (17:48)
[2020-04-27] MEDS ORDERED: Cefepime HCl 2,000 MG in Water for inj. (sterile) 20 ML IVP SCH (18:00)
[2020-04-27] MEDS ORDERED: Azithromycin 500 MG in 0.9 % Sodium Chloride 250 ML IVPB SCH (18:00)
[2020-04-27] MEDS ORDERED: Ipratropium 1 PUFF INHALER IH PRN (18:23)
[2020-04-27] MEDS ORDERED: Artificial Tears SOLN 15 ML BOTTLE BOTH EYES PRN (18:37)
[2020-04-27] MEDS ORDERED: FentaNYL (PF) 1,000 MCG/100 ML IV.SOLN IVC SCH (18:45)
[2020-04-27] MEDS ORDERED: Vancomycin 1 EACH in 0.9 % Sodium Chloride 250 ML IVPB SCH (19:00)
[2020-04-27] MEDS: FentaNYL (PF) 1,000 MCG/100 ML IV.SOLN IVC SCH (19:22)
[2020-04-27] MEDS: Midazolam HCl 50 MG/100 ML IV.SOLN IVC SCH (19:23)
[2020-04-27 20:50] LABS: ABG Base Excess 5 mEq/L (-2 to 3); ABG HCO3 31 mEq/L (21-27); ABG Oxygen Saturation 98 % (95-98); ABG PCO2 54 mmHg (35-45); ABG PH 7.37 pH Units (7.32-7.45); ABG PO2 115 mmHg (85-104); ABG TCO2 33 mEq/L (20-26); Blood Gas Modality ASSIST CONTROL; Blood Gas VT 500 cc
[2020-04-27] MEDS ORDERED: Vancomycin 1,500 MG/265 ML IV.SOLN IVPB ONE (21:00)
[2020-04-27] MEDS: Ipratropium 1 PUFF INHALER IH SCH (21:24)
[2020-04-27] MEDS: Artificial Tears SOLN 15 ML BOTTLE BOTH EYES SCH (22:02)
[2020-04-27] MEDS: *HR* Heparin 5,000 UNIT/ML VIAL SQ SCH (22:03)
[2020-04-27] MEDS: Chlorhexidine Rinse 15 ML MOUTHWASH MM SCH (22:03)
[2020-04-27] MEDS: 0.9 % Sodium Chloride 1,000 ML IVC SCH (22:03)
[2020-04-27] MEDS: Doxycycline 100 MG in 0.9 % Sodium Chloride Mini Bag 100 ML IVPB SCH (22:04)
[2020-04-27] MEDS: Albumin Human 5% 12.5 GM/250 ML IV.SOLN IVC ONE (23:40)
[2020-04-28] MEDS: Artificial Tears SOLN 15 ML BOTTLE BOTH EYES SCH ×6 (00:15→20:14)
[2020-04-28] MEDS ORDERED: Albumin Human 5% 12.5 GM/250 ML IV.SOLN IVPB ONE (01:01)
[2020-04-28] MEDS: Albumin Human 5% 12.5 GM/250 ML IV.SOLN IVC ONE (01:07)
[2020-04-28] MEDS: FentaNYL (PF) 1,000 MCG/100 ML IV.SOLN IVC SCH ×3 (02:32→17:32)
[2020-04-28] MEDS: Ipratropium 1 PUFF INHALER IH SCH ×4 (03:58→21:03)
[2020-04-28] MEDS: 0.9 % Sodium Chloride 1,000 ML IVC SCH (04:05)
[2020-04-28] MEDS: Norepinephrine 4 MG/254 ML IV.SOLN IVC SCH ×2 (04:05→12:33)
[2020-04-28] MEDS: Insulin LISPRO 300 UNITS/3 ML VIAL SQ SCH ×5 (04:06→20:49)
[2020-04-28 04:16] LABS: ABG Base Excess 3 mEq/L (-2 to 3); ABG HCO3 32 mEq/L (21-27); ABG Oxygen Saturation 92 % (95-98); ABG PCO2 71 mmHg (35-45); ABG PH 7.26 pH Units (7.32-7.45); ABG PO2 75 mmHg (85-104); ABG TCO2 34 mEq/L (20-26); Blood Gas Modality ASSIST CONTROL; Blood Gas VT 500 cc
[2020-04-28] MEDS: Midazolam HCl 50 MG/100 ML IV.SOLN IVC SCH ×3 (04:42→20:51)
[2020-04-28] MEDS: *HR* Heparin 5,000 UNIT/ML VIAL SQ SCH (04:43)
[2020-04-28 05:10] LABS: Basophils % 0.1 %; Eosinophils % 0.1 %; Hematocrit 27.2 % (35.3-44.9); Immature Granulocytes % 0.7 % (0-4); Lymphocytes # 0.3 K/mcL (0.6-4.6); Lymphocytes % 2.6 %; Mean Platelet Volume 10.3 fL (9.4-12.4); Monocytes # 0.5 K/mcL (0.0-1.3); Monocytes % 3.9 %; Neutrophils # 11.1 K/mcL (1.6-8.9); Platelet Count 221 K/mcL (140-400); Red Blood Count 2.72 M/mcL (3.82-4.97); Segmented Neutrophils % 92.6 %
[2020-04-28 05:12] LABS: Hemoglobin 7.9 g/dL (11.5-15.4)
[2020-04-28 05:29] LABS: Calcium 8.5 mg/dL (8.6-10.3); Chol/HDL Ratio 3.6 (0-4.9); Magnesium 1.5 mg/dL (1.6-2.6); Potassium 3.5 mEq/L (3.5-5.1)
[2020-04-28 05:38] LABS: Troponin I 0.15 ng/mL (< 0.04)
[2020-04-28 05:57] LABS: Platelet Estimate Normal (Normal)
[2020-04-28] MEDS ORDERED: Meropenem 1,000 MG in Water for inj. (sterile) 20 ML IVP SCH (06:00)
[2020-04-28] MEDS ORDERED: Cefepime HCl 2,000 MG in Water for inj. (sterile) 20 ML IVP SCH (06:00)
[2020-04-28 06:30] LABS: ABG Base Excess 5 mEq/L (-2 to 3); ABG HCO3 33 mEq/L (21-27); ABG Oxygen Saturation 94 % (95-98); ABG PCO2 64 mmHg (35-45); ABG PH 7.32 pH Units (7.32-7.45); ABG PO2 80 mmHg (85-104); ABG TCO2 35 mEq/L (20-26); Blood Gas Modality ASSIST CONTROL; Blood Gas VT 500 cc
[2020-04-28] MEDS ORDERED: Insulin LISPRO 300 UNITS/3 ML VIAL SQ SCH (07:30)
[2020-04-28] MEDS: Pantoprazole 40 MG VIAL IVP SCH (07:55)
[2020-04-28] MEDS: Chlorhexidine Rinse 15 ML MOUTHWASH MM SCH ×2 (07:55→20:14)
[2020-04-28] MEDS: Doxycycline 100 MG in 0.9 % Sodium Chloride Mini Bag 100 ML IVPB SCH ×2 (07:56→20:15)
[2020-04-28] MEDS ORDERED: Dexamethasone 4 MG/ML VIAL IVP SCH (09:00)
[2020-04-28] MEDS ORDERED: Calcium Gluconate 1gm/50mL 1 GM/50 ML BAG IVPB PRN (09:17)
[2020-04-28] MEDS ORDERED: Potassium Phosphate 44 MEQ in 0.9 % Sodium Chloride 250 ML IVPB PRN (09:17)
[2020-04-28] MEDS: Potassium Chloride 40 MEQ/200 ML BAG IVPB PRN (09:56)
[2020-04-28] MEDS ORDERED: *HR* Heparin 5,000 UNIT/ML VIAL IVP PRN ×2 (11:41)
[2020-04-28] MEDS ORDERED: Heparin 25,000UNIT/250ML 1/2NS 25,000 UNIT/250 ML IV.SOLN IVC SCH (11:45)
[2020-04-28 12:38] LABS: Hematocrit 29.4 % (35.3-44.9); Hemoglobin 8.9 g/dL (11.5-15.4)
[2020-04-28 12:42] LABS: Heparin anti-factor XA UFH < 0.04 IU/mL (0.30-0.70)
[2020-04-28 12:43] LABS: INR 1.6; Prothrombin Time 17.8 Seconds (9.4-12.1)
[2020-04-28 12:59] LABS: ABG Base Excess 2 mEq/L (-2 to 3); ABG HCO3 28 mEq/L (21-27); ABG Oxygen Saturation 94 % (95-98); ABG PCO2 48 mmHg (35-45); ABG PH 7.37 pH Units (7.32-7.45); ABG PO2 74 mmHg (85-104); ABG TCO2 29 mEq/L (20-26); Blood Gas Modality AF; Blood Gas VT 430 cc
[2020-04-28] MEDS: Cefepime HCl 1,000 MG in Water for inj. (sterile) 10 ML IVP SCH (17:53)
[2020-04-28 21:05] LABS: Sodium, Urine 15.2 mEq/L
[2020-04-28 21:15] LABS: Potassium 4.3 mEq/L (3.5-5.1)
[2020-04-29] MEDS: Artificial Tears SOLN 15 ML BOTTLE BOTH EYES SCH ×6 (00:17→20:09)
[2020-04-29] MEDS: Insulin LISPRO 300 UNITS/3 ML VIAL SQ SCH ×6 (00:17→20:36)
[2020-04-29] MEDS: FentaNYL (PF) 1,000 MCG/100 ML IV.SOLN IVC SCH ×3 (00:53→17:40)
[2020-04-29] MEDS: Ipratropium 1 PUFF INHALER IH SCH ×4 (03:38→21:16)
[2020-04-29 03:49] LABS: ABG Base Excess 3 mEq/L (-2 to 3); ABG HCO3 27 mEq/L (21-27); ABG Oxygen Saturation 96 % (95-98); ABG PCO2 41 mmHg (35-45); ABG PH 7.43 pH Units (7.32-7.45); ABG PO2 76 mmHg (85-104); ABG TCO2 29 mEq/L (20-26); Blood Gas Modality ASSIST CONTROL; Blood Gas VT 430 cc
[2020-04-29 04:01] LABS: Basophils % 0.2 %; Hematocrit 27.3 % (35.3-44.9); Hemoglobin 8.2 g/dL (11.5-15.4); Immature Granulocytes % 1.3 % (0-4); Lymphocytes # 0.4 K/mcL (0.6-4.6); Lymphocytes % 3.2 %; Mean Corpuscular Hemoglobin 28.5 pg (28.0-33.3); Mean Corpuscular Volume 94.8 fL (83.0-100.0); Mean Platelet Volume 10.2 fL (9.4-12.4); Monocytes # 0.8 K/mcL (0.0-1.3); Monocytes % 6.1 %; Neutrophils # 11.7 K/mcL (1.6-8.9); Platelet Count 249 K/mcL (140-400); Red Blood Count 2.88 M/mcL (3.82-4.97); Red Cell Distribution Width 13.1 % (11.5-14.5); Segmented Neutrophils % 89.2 %; White Blood Count 13.1 K/mcL (4.3-11.1)
[2020-04-29 04:04] LABS: VBG Ionized Calcium 1.26 mmol/L (1.15-1.35)
[2020-04-29 04:05] LABS: INR 1.9
[2020-04-29 04:17] LABS: Albumin 2.6 g/dL (3.5-5.7); Albumin/Globulin Ratio 0.8 (1.1-2.2); Bilirubin,Total 0.5 mg/dL (0.3-1.0); Calcium 9.4 mg/dL (8.6-10.3); Globulin 3.3 g/dL (2.4-3.5); Phosphorous 1.8 mg/dL (2.7-4.5); Potassium 3.9 mEq/L (3.5-5.1); Total Protein 5.9 g/dL (6.4-8.9)
[2020-04-29] MEDS: Cefepime HCl 1,000 MG in Water for inj. (sterile) 10 ML IVP SCH ×2 (04:56→17:46)
[2020-04-29] MEDS: Midazolam HCl 50 MG/100 ML IV.SOLN IVC SCH ×2 (06:04→17:39)
[2020-04-29] MEDS: Aspirin 81 MG TAB.CHEW PO SCH (07:54)
[2020-04-29] MEDS: Chlorhexidine Rinse 15 ML MOUTHWASH MM SCH ×2 (07:54→20:08)
[2020-04-29] MEDS: Pantoprazole 40 MG VIAL IVP SCH (07:55)
[2020-04-29] MEDS: Doxycycline 100 MG in 0.9 % Sodium Chloride Mini Bag 100 ML IVPB SCH ×2 (09:03→21:30)
[2020-04-29] MEDS: *HR* Heparin 5,000 UNIT/ML VIAL SQ SCH (17:46)
[2020-04-29 18:55] LABS: Phosphorous 3.6 mg/dL (2.7-4.5); Potassium 4.2 mEq/L (3.5-5.1)
[2020-04-30] MEDS: Artificial Tears SOLN 15 ML BOTTLE BOTH EYES SCH ×6 (00:10→20:28)
[2020-04-30] MEDS: Insulin LISPRO 300 UNITS/3 ML VIAL SQ SCH ×6 (00:24→21:08)
[2020-04-30] MEDS: Norepinephrine 4 MG/254 ML IV.SOLN IVC SCH (01:45)
[2020-04-30] MEDS: Ipratropium 1 PUFF INHALER IH SCH ×4 (03:52→21:55)
[2020-04-30 04:12] LABS: Basophils % 0.1 %; Hematocrit 26.5 % (35.3-44.9); Hemoglobin 8.1 g/dL (11.5-15.4); Immature Granulocytes % 1.5 % (0-4); Lymphocytes # 0.3 K/mcL (0.6-4.6); Lymphocytes % 3.5 %; Mean Corpuscular HGB Conc 30.6 g/dL (31.6-35.5); Mean Platelet Volume 10.2 fL (9.4-12.4); Monocytes # 0.4 K/mcL (0.0-1.3); Monocytes % 4.2 %; Neutrophils # 8.7 K/mcL (1.6-8.9); Nucleated Red Blood Cells 0.2 /100 WBC (0); Platelet Count 243 K/mcL (140-400); Red Blood Count 2.79 M/mcL (3.82-4.97); Red Cell Distribution Width 13.2 % (11.5-14.5); Segmented Neutrophils % 90.7 %; White Blood Count 9.6 K/mcL (4.3-11.1)
[2020-04-30] MEDS: FentaNYL (PF) 1,000 MCG/100 ML IV.SOLN IVC SCH ×2 (04:15→17:50)
[2020-04-30 04:16] LABS: VBG Ionized Calcium 1.29 mmol/L (1.15-1.35)
[2020-04-30 04:23] LABS: INR 1.3; Prothrombin Time 14.6 Seconds (9.4-12.1)
[2020-04-30 04:34] LABS: Albumin 2.5 g/dL (3.5-5.7); Albumin/Globulin Ratio 0.8 (1.1-2.2); Bilirubin,Total 0.4 mg/dL (0.3-1.0); Calcium 9.3 mg/dL (8.6-10.3); Globulin 3.2 g/dL (2.4-3.5); Phosphorous 3.4 mg/dL (2.7-4.5); Potassium 4.4 mEq/L (3.5-5.1); Total Protein 5.7 g/dL (6.4-8.9)
[2020-04-30 05:00] LABS: ABG Base Excess 2 mEq/L (-2 to 3); ABG HCO3 28 mEq/L (21-27); ABG Oxygen Saturation 89 % (95-98); ABG PCO2 50 mmHg (35-45); ABG PH 7.35 pH Units (7.32-7.45); ABG PO2 60 mmHg (85-104); ABG TCO2 29 mEq/L (20-26); Blood Gas VT 430 cc
[2020-04-30] MEDS: Cefepime HCl 1,000 MG in Water for inj. (sterile) 10 ML IVP SCH ×2 (05:54→16:35)
[2020-04-30] MEDS: *HR* Heparin 5,000 UNIT/ML VIAL SQ SCH ×2 (05:54→16:36)
[2020-04-30] MEDS: Aspirin 81 MG TAB.CHEW PO SCH (09:24)
[2020-04-30] MEDS: Chlorhexidine Rinse 15 ML MOUTHWASH MM SCH ×2 (09:24→20:24)
[2020-04-30] MEDS: Pantoprazole 40 MG VIAL IVP SCH (09:24)
[2020-04-30] MEDS: Midazolam HCl 50 MG/100 ML IV.SOLN IVC SCH (10:19)
[2020-04-30] MEDS ORDERED: Furosemide 40 MG/4 ML VIAL IVP ONE (11:00)
[2020-04-30] MEDS ORDERED: Albumin 25% 25gram/100mL 25 GM/100 ML IV.SOLN IVPB ONE (11:00)
[2020-04-30] MEDS ORDERED: 0.9 % Sodium Chloride 250 ML ONE (11:18)
[2020-04-30] MEDS: Dexmedetomidine HCl 400 MCG/100 ML MLS IVC SCH ×3 (11:42→20:29)
[2020-04-30] MEDS: Insulin DETEMIR 100 UNIT/ML X5UNITS SQ SCH ×2 (11:54→20:24)
[2020-05-01] MEDS: Insulin LISPRO 300 UNITS/3 ML VIAL SQ SCH ×4 (00:33→13:00)
[2020-05-01] MEDS: Artificial Tears SOLN 15 ML BOTTLE BOTH EYES SCH ×7 (00:33→23:10)
[2020-05-01] MEDS ORDERED: Insulin LISPRO 300 UNITS/3 ML VIAL SQ ONE ×2 (00:38→04:36)
[2020-05-01 01:32] LABS: Alanine Aminotransferase 11 Units/L (7-52); Albumin 3.1 g/dL (3.5-5.7); Albumin/Globulin Ratio 0.9 (1.1-2.2); Alkaline Phosphatase 47 Units/L (34-104); Aspartate Amino Transferase 9 Units/L (13-39); Bilirubin,Total 0.5 mg/dL (0.3-1.0); Blood Urea Nitrogen > 130 mg/dL (8-23); Calcium 9.8 mg/dL (8.6-10.3); Carbon Dioxide 29 mEq/L (23-29); Chloride 102 mEq/L (98-107); Globulin 3.4 g/dL (2.4-3.5); Glucose 508 mg/dL (70-105); Potassium 4.4 mEq/L (3.5-5.1); Sodium 138 mEq/L (136-145); Total Protein 6.5 g/dL (6.4-8.9); eGFR For African Americans 34 (> 60); eGFR For Non-African Americans 28 (> 60)
[2020-05-01 03:55] LABS: Basophils % 0.1 %; Hematocrit 27.5 % (35.3-44.9); Hemoglobin 8.3 g/dL (11.5-15.4); Lymphocytes # 0.4 K/mcL (0.6-4.6); Lymphocytes % 4.4 %; Mean Corpuscular HGB Conc 30.2 g/dL (31.6-35.5); Mean Corpuscular Hemoglobin 28.7 pg (28.0-33.3); Mean Corpuscular Volume 95.2 fL (83.0-100.0); Mean Platelet Volume 10.4 fL (9.4-12.4); Monocytes # 0.5 K/mcL (0.0-1.3); Monocytes % 5.7 %; Neutrophils # 7.4 K/mcL (1.6-8.9); Nucleated Red Blood Cells 0.4 /100 WBC (0); Platelet Count 250 K/mcL (140-400); Red Blood Count 2.89 M/mcL (3.82-4.97); Red Cell Distribution Width 13.3 % (11.5-14.5); Segmented Neutrophils % 86.8 %; White Blood Count 8.6 K/mcL (4.3-11.1)
[2020-05-01 04:12] LABS: INR 1.2; Prothrombin Time 13.7 Seconds (9.4-12.1)
[2020-05-01] MEDS: Ipratropium 1 PUFF INHALER IH SCH ×4 (04:13→22:15)
[2020-05-01 04:17] LABS: Alanine Aminotransferase 11 Units/L (7-52); Albumin 3.1 g/dL (3.5-5.7); Alkaline Phosphatase 46 Units/L (34-104); Aspartate Amino Transferase 8 Units/L (13-39); Bilirubin,Total 0.4 mg/dL (0.3-1.0); Blood Urea Nitrogen > 130 mg/dL (8-23); Calcium 9.6 mg/dL (8.6-10.3); Carbon Dioxide 27 mEq/L (23-29); Chloride 102 mEq/L (98-107); Globulin 3.2 g/dL (2.4-3.5); Glucose 484 mg/dL (70-105); Potassium 4.4 mEq/L (3.5-5.1); Sodium 138 mEq/L (136-145); Total Protein 6.3 g/dL (6.4-8.9); eGFR For African Americans 34 (> 60); eGFR For Non-African Americans 28 (> 60)
[2020-05-01 04:25] LABS: ABG Base Excess 1 mEq/L (-2 to 3); ABG HCO3 27 mEq/L (21-27); ABG Oxygen Saturation 91 % (95-98); ABG PCO2 48 mmHg (35-45); ABG PH 7.36 pH Units (7.32-7.45); ABG PO2 65 mmHg (85-104); ABG TCO2 28 mEq/L (20-26); Blood Gas Modality ASSIST CONTROL; Blood Gas VT 430 cc
[2020-05-01] MEDS: Norepinephrine 4 MG/254 ML IV.SOLN IVC SCH (04:34)
[2020-05-01] MEDS: Dexmedetomidine HCl 400 MCG/100 ML MLS IVC SCH ×3 (05:01→23:36)
[2020-05-01 05:27] LABS: Magnesium 1.8 mg/dL (1.6-2.6); Phosphorous 3.4 mg/dL (2.7-4.5)
[2020-05-01] MEDS: Cefepime HCl 1,000 MG in Water for inj. (sterile) 10 ML IVP SCH ×2 (05:34→17:35)
[2020-05-01] MEDS: *HR* Heparin 5,000 UNIT/ML VIAL SQ SCH (05:35)
[2020-05-01] MEDS: Pantoprazole 40 MG VIAL IVP SCH (08:16)
[2020-05-01] MEDS: Aspirin 81 MG TAB.CHEW PO SCH (08:17)
[2020-05-01] MEDS: Chlorhexidine Rinse 15 ML MOUTHWASH MM SCH ×2 (08:25→20:06)
[2020-05-01] MEDS ORDERED: Insulin DETEMIR 100 UNIT/ML X5UNITS SQ SCH (09:00)
[2020-05-01] MEDS ORDERED: *HR* Heparin 5,000 UNIT/ML VIAL IVP ONE (10:35)
[2020-05-01] MEDS ORDERED: *HR* Heparin 5,000 UNIT/ML VIAL IVP PRN ×2 (10:35)
[2020-05-01] MEDS ORDERED: Albumin 25% 25gram/100mL 25 GM/100 ML IV.SOLN IVPB ONE (10:35)
[2020-05-01] MEDS ORDERED: Furosemide 40 MG/4 ML VIAL IVP ONE (10:35)
[2020-05-01] MEDS ORDERED: Insulin LISPRO 300 UNITS/3 ML VIAL SQ SCH (12:00)
[2020-05-01] MEDS: Heparin 25,000UNIT/250ML 1/2NS 25,000 UNIT/250 ML IV.SOLN IVC SCH (12:28)
[2020-05-01] MEDS ORDERED: *HR* Dextrose 50 % in Water (Vial) 50 ML VIAL IVP PRN (13:18)
[2020-05-01] MEDS: Insulin Human Regular 100 UNIT in 0.9 % Sodium Chloride 100 ML IVC SCH ×3 (13:48→23:12)
[2020-05-01] MEDS: FentaNYL (PF) 1,000 MCG/100 ML IV.SOLN IVC SCH (20:20)
[2020-05-01 22:07] LABS: Blood Urea Nitrogen > 130 mg/dL (8-23); Calcium 9.8 mg/dL (8.6-10.3); Carbon Dioxide 29 mEq/L (23-29); Chloride 100 mEq/L (98-107); Glucose 381 mg/dL (70-105); Potassium 4.1 mEq/L (3.5-5.1); Sodium 138 mEq/L (136-145); eGFR For African Americans 39 (> 60); eGFR For Non-African Americans 32 (> 60)
[2020-05-02] MEDS: Insulin Human Regular 100 UNIT in 0.9 % Sodium Chloride 100 ML IVC SCH ×2 (02:12→08:59)
[2020-05-02 03:40] LABS: Hematocrit 28.4 % (35.3-44.9); Hemoglobin 8.7 g/dL (11.5-15.4); Lymphocytes # 0.6 K/mcL (0.6-4.6); Mean Corpuscular HGB Conc 30.6 g/dL (31.6-35.5); Mean Corpuscular Hemoglobin 28.6 pg (28.0-33.3); Mean Corpuscular Volume 93.4 fL (83.0-100.0); Mean Platelet Volume 10.5 fL (9.4-12.4); Nucleated Red Blood Cells 0.5 /100 WBC (0); Platelet Count 248 K/mcL (140-400); Red Blood Count 3.04 M/mcL (3.82-4.97); Red Cell Distribution Width 13.1 % (11.5-14.5); White Blood Count 9.8 K/mcL (4.3-11.1)
[2020-05-02 03:46] LABS: VBG Ionized Calcium 1.32 mmol/L (1.15-1.35)
[2020-05-02 04:10] LABS: Monocytes # 0.8 K/mcL (0.0-1.3); Platelet Estimate Normal (Normal)
[2020-05-02] MEDS: Ipratropium 1 PUFF INHALER IH SCH ×4 (04:12→22:07)
[2020-05-02 04:18] LABS: Alanine Aminotransferase 10 Units/L (7-52); Albumin 3.3 g/dL (3.5-5.7); Albumin/Globulin Ratio 1.1 (1.1-2.2); Alkaline Phosphatase 38 Units/L (34-104); Aspartate Amino Transferase 7 Units/L (13-39); Bilirubin,Total 0.5 mg/dL (0.3-1.0); Blood Urea Nitrogen > 130 mg/dL (8-23); Calcium 9.9 mg/dL (8.6-10.3); Carbon Dioxide 30 mEq/L (23-29); Chloride 101 mEq/L (98-107); Glucose 159 mg/dL (70-105); Magnesium 1.9 mg/dL (1.6-2.6); Potassium 3.8 mEq/L (3.5-5.1); Sodium 140 mEq/L (136-145); Total Protein 6.3 g/dL (6.4-8.9); eGFR For African Americans 42 (> 60); eGFR For Non-African Americans 34 (> 60)
[2020-05-02] MEDS: Norepinephrine 4 MG/254 ML IV.SOLN IVC SCH (04:19)
[2020-05-02] MEDS: Artificial Tears SOLN 15 ML BOTTLE BOTH EYES SCH ×5 (04:20→20:03)
[2020-05-02 04:26] LABS: ABG Base Excess 0 mEq/L (-2 to 3); ABG HCO3 27 mEq/L (21-27); ABG Oxygen Saturation 93 % (95-98); ABG PCO2 52 mmHg (35-45); ABG PH 7.33 pH Units (7.32-7.45); ABG PO2 75 mmHg (85-104); ABG TCO2 29 mEq/L (20-26); Blood Gas Modality ASSIST CONTROL; Blood Gas VT 430 cc
[2020-05-02] MEDS: Cefepime HCl 1,000 MG in Water for inj. (sterile) 10 ML IVP SCH ×2 (06:22→18:58)
[2020-05-02] MEDS: Potassium Chloride 40 MEQ/200 ML BAG IVPB PRN ×2 (07:01→10:18)
[2020-05-02] MEDS: Aspirin 81 MG TAB.CHEW PO SCH (08:37)
[2020-05-02] MEDS: Dexamethasone 4 MG/ML VIAL IVP SCH (08:37)
[2020-05-02] MEDS: Pantoprazole 40 MG VIAL IVP SCH (08:37)
[2020-05-02] MEDS: Chlorhexidine Rinse 15 ML MOUTHWASH MM SCH ×2 (08:37→20:03)
[2020-05-02] MEDS: Heparin 25,000UNIT/250ML 1/2NS 25,000 UNIT/250 ML IV.SOLN IVC SCH (10:20)
[2020-05-02] MEDS: FentaNYL (PF) 1,000 MCG/100 ML IV.SOLN IVC SCH (18:00)
[2020-05-03] MEDS: Insulin Human Regular 100 UNIT in 0.9 % Sodium Chloride 100 ML IVC SCH (01:04)
[2020-05-03] MEDS: Ipratropium 1 PUFF INHALER IH SCH ×4 (03:52→21:41)
[2020-05-03] MEDS: Artificial Tears SOLN 15 ML BOTTLE BOTH EYES SCH ×5 (04:00→21:03)
[2020-05-03 04:24] LABS: ABG Base Excess -2 mEq/L (-2 to 3); ABG HCO3 25 mEq/L (21-27); ABG Oxygen Saturation 93 % (95-98); ABG PCO2 46 mmHg (35-45); ABG PH 7.34 pH Units (7.32-7.45); ABG PO2 72 mmHg (85-104); ABG TCO2 26 mEq/L (20-26); Blood Gas Modality ASSIST CONTROL; Blood Gas VT 430 cc
[2020-05-03 04:56] LABS: VBG Ionized Calcium 1.25 mmol/L (1.15-1.35)
[2020-05-03 04:57] LABS: Heparin anti-factor XA UFH 0.8 IU/mL (0.30-0.70)
[2020-05-03 04:59] LABS: Hematocrit 29.8 % (35.3-44.9); Hemoglobin 9.1 g/dL (11.5-15.4); Mean Corpuscular HGB Conc 30.5 g/dL (31.6-35.5); Mean Corpuscular Hemoglobin 29.2 pg (28.0-33.3); Mean Corpuscular Volume 95.5 fL (83.0-100.0); Mean Platelet Volume 10.3 fL (9.4-12.4); Nucleated Red Blood Cells 0.4 /100 WBC (0); Platelet Count 284 K/mcL (140-400); Red Blood Count 3.12 M/mcL (3.82-4.97); Red Cell Distribution Width 13.6 % (11.5-14.5)
[2020-05-03] MEDS: FentaNYL (PF) 1,000 MCG/100 ML IV.SOLN IVC SCH ×3 (05:00→21:43)
[2020-05-03 05:14] LABS: Alanine Aminotransferase 18 Units/L (7-52); Albumin 3.1 g/dL (3.5-5.7); Alkaline Phosphatase 39 Units/L (34-104); Aspartate Amino Transferase 14 Units/L (13-39); Bilirubin,Total 0.4 mg/dL (0.3-1.0); Blood Urea Nitrogen > 130 mg/dL (8-23); Calcium 9.9 mg/dL (8.6-10.3); Carbon Dioxide 28 mEq/L (23-29); Chloride 102 mEq/L (98-107); Glucose 69 mg/dL (70-105); Magnesium 1.8 mg/dL (1.6-2.6); Phosphorous 3.6 mg/dL (2.7-4.5); Potassium 4.4 mEq/L (3.5-5.1); Sodium 140 mEq/L (136-145); Total Protein 6.1 g/dL (6.4-8.9); eGFR For African Americans 31 (> 60); eGFR For Non-African Americans 25 (> 60)
[2020-05-03 05:22] LABS: White Blood Count 22.3 K/mcL (4.3-11.1)
[2020-05-03] MEDS: Cefepime HCl 1,000 MG in Water for inj. (sterile) 10 ML IVP SCH ×2 (05:39→19:17)
[2020-05-03] MEDS: Norepinephrine 4 MG/254 ML IV.SOLN IVC SCH ×2 (05:40→09:32)
[2020-05-03 06:06] LABS: Lymphocytes # 2.7 K/mcL (0.6-4.6); Monocytes # 1.3 K/mcL (0.0-1.3); Neutrophils # 18.3 K/mcL (1.6-8.9); Toxic Granulation Present (Not Present)
[2020-05-03 06:07] LABS: Platelet Estimate Normal (Normal)
[2020-05-03] MEDS: Chlorhexidine Rinse 15 ML MOUTHWASH MM SCH ×2 (08:18→21:16)
[2020-05-03] MEDS: Pantoprazole 40 MG VIAL IVP SCH (08:18)
[2020-05-03] MEDS: Aspirin 81 MG TAB.CHEW PO SCH (08:19)
[2020-05-03] MEDS: Dexamethasone 4 MG/ML VIAL IVP SCH (08:19)
[2020-05-03] MEDS ORDERED: *HR* Dextrose 50 % in Water (Vial) 50 ML VIAL IVP PRN (09:08)
[2020-05-03] MEDS ORDERED: Dextrose Gel 15 GM/37.5 ML TUBE PO PRN ×2 (09:08)
[2020-05-03] MEDS ORDERED: D5% in Water 1,000 ML IVC PRN (09:08)
[2020-05-03] MEDS: *HR* Metoprolol 5 MG/5 ML VIAL IVP PRN (09:45)
[2020-05-03] MEDS: Insulin DETEMIR 100 UNIT/ML X5UNITS SQ SCH ×2 (11:23→21:03)
[2020-05-03] MEDS: Heparin 25,000UNIT/250ML 1/2NS 25,000 UNIT/250 ML IV.SOLN IVC SCH ×3 (11:54→23:33)
[2020-05-03] MEDS: Insulin LISPRO 300 UNITS/3 ML VIAL SQ SCH ×3 (11:55→21:03)
[2020-05-03] MEDS: Ringers Solution, Lactated 1,000 ML IVC SCH (14:51)
[2020-05-03 15:09] LABS: Bacteria,Urine Few per hpf (None-Few); Bilirubin,Urine Negative (Negative); Blood,Urine Small (Negative); Budding Yeast,Urine Many per hpf (None Seen); Clarity,Urine Turbid (Clear); Color,Urine Yellow (Yellow); Glucose,Urine (UA) Normal (Normal); Granular Casts,Urine Few per lpf (None Seen); Ketones,Urine Negative (Negative); Leukocyte Esterase,Urine Large (Negative); Mucus,Urine Few per lpf (None-Few); Nitrite,Urine Negative (Negative); PH,Urine 5.5 pH Units (5.0-8.0); Protein,Urine 50 mg/dL (Neg-Trace); RBC,Urine 15-30 per hpf (0-3); Specific Gravity,Urine 1.018 (1.010-1.025); Squamous Epithelial Cell,Urine Few per hpf (None-Few); Transitional Epi Cells,Urine Few per hpf (None-Few); Urobilinogen,Urine Normal (Normal); WBC,Urine 50-100 per hpf (0-3)
[2020-05-03] MEDS ORDERED: Dexmedetomidine HCl 400 MCG/100 ML MLS IVC ONE (15:32)
[2020-05-03] MEDS: Dexmedetomidine HCl 400 MCG/100 ML MLS IVC SCH (15:35)
[2020-05-03] MEDS: Midazolam HCl 50 MG/100 ML IV.SOLN IVC SCH (23:34)
[2020-05-04] MEDS: Dexmedetomidine HCl 400 MCG/100 ML MLS IVC SCH ×3 (00:15→18:47)
[2020-05-04] MEDS: Artificial Tears SOLN 15 ML BOTTLE BOTH EYES SCH ×8 (00:18→23:56)
[2020-05-04] MEDS: Insulin LISPRO 300 UNITS/3 ML VIAL SQ SCH ×7 (00:34→23:57)
[2020-05-04] MEDS: Ringers Solution, Lactated 1,000 ML IVC SCH ×2 (00:36→10:15)
[2020-05-04] MEDS: Ipratropium 1 PUFF INHALER IH SCH ×4 (03:36→21:03)
[2020-05-04 04:25] LABS: ABG Base Excess 3 mEq/L (-2 to 3); ABG HCO3 28 mEq/L (21-27); ABG Oxygen Saturation 100 % (95-98); ABG PCO2 47 mmHg (35-45); ABG PH 7.38 pH Units (7.32-7.45); ABG PO2 550 mmHg (85-104); ABG TCO2 30 mEq/L (20-26); Blood Gas Modality ASSIST CONTROL; Blood Gas VT 430 cc
[2020-05-04] MEDS: Norepinephrine 4 MG/254 ML IV.SOLN IVC SCH (04:56)
[2020-05-04 05:10] LABS: Hematocrit 26.4 % (35.3-44.9); Hemoglobin 8.2 g/dL (11.5-15.4); Mean Corpuscular HGB Conc 31.1 g/dL (31.6-35.5); Mean Corpuscular Hemoglobin 29.5 pg (28.0-33.3); Mean Platelet Volume 10.2 fL (9.4-12.4); Nucleated Red Blood Cells 0.2 /100 WBC (0); Platelet Count 246 K/mcL (140-400); Red Blood Count 2.78 M/mcL (3.82-4.97); Red Cell Distribution Width 13.5 % (11.5-14.5)
[2020-05-04] MEDS: Cefepime HCl 1,000 MG in Water for inj. (sterile) 10 ML IVP SCH ×2 (05:20→17:22)
[2020-05-04 05:26] LABS: VBG Ionized Calcium 1.22 mmol/L (1.15-1.35)
[2020-05-04 05:30] LABS: Alanine Aminotransferase 16 Units/L (7-52); Albumin 2.9 g/dL (3.5-5.7); Albumin/Globulin Ratio 1.1 (1.1-2.2); Alkaline Phosphatase 37 Units/L (34-104); Aspartate Amino Transferase 9 Units/L (13-39); Bilirubin,Total 0.4 mg/dL (0.3-1.0); Blood Urea Nitrogen > 130 mg/dL (8-23); Calcium 9.7 mg/dL (8.6-10.3); Carbon Dioxide 27 mEq/L (23-29); Chloride 101 mEq/L (98-107); Globulin 2.6 g/dL (2.4-3.5); Glucose 214 mg/dL (70-105); Magnesium 2.3 mg/dL (1.6-2.6); Phosphorous 4.3 mg/dL (2.7-4.5); Sodium 137 mEq/L (136-145); Total Protein 5.5 g/dL (6.4-8.9); eGFR For African Americans 28 (> 60); eGFR For Non-African Americans 23 (> 60)
[2020-05-04 05:40] LABS: Lymphocytes # 1.7 K/mcL (0.6-4.6); Monocytes # 0.8 K/mcL (0.0-1.3); Neutrophils # 18.5 K/mcL (1.6-8.9)
[2020-05-04] MEDS: Dexamethasone 4 MG/ML VIAL IVP SCH (08:19)
[2020-05-04] MEDS: Chlorhexidine Rinse 15 ML MOUTHWASH MM SCH ×2 (08:19→21:55)
[2020-05-04] MEDS: Pantoprazole 40 MG VIAL IVP SCH (08:22)
[2020-05-04] MEDS: Insulin DETEMIR 100 UNIT/ML X5UNITS SQ SCH ×2 (08:22→21:55)
[2020-05-04] MEDS: Aspirin 81 MG TAB.CHEW PO SCH (08:22)
[2020-05-04] MEDS: FentaNYL (PF) 1,000 MCG/100 ML IV.SOLN IVC SCH ×2 (10:15→18:49)
[2020-05-04] MEDS: Heparin 25,000UNIT/250ML 1/2NS 25,000 UNIT/250 ML IV.SOLN IVC SCH ×2 (10:50→17:24)
[2020-05-04] MEDS: Albumin Human 5% 12.5 GM/250 ML IV.SOLN IVC SCH ×2 (12:03→12:04)
[2020-05-04] MEDS: Midazolam HCl 50 MG/100 ML IV.SOLN IVC SCH (16:29)
[2020-05-04 21:15] LABS: ABG Base Excess 3 mEq/L (-2 to 3); ABG HCO3 30 mEq/L (21-27); ABG Oxygen Saturation 100 % (95-98); ABG PCO2 57 mmHg (35-45); ABG PH 7.33 pH Units (7.32-7.45); ABG PO2 258 mmHg (85-104); ABG TCO2 32 mEq/L (20-26); Blood Gas Modality ASSIST CONTROL; Blood Gas VT 400 cc
[2020-05-05] MEDS: Ipratropium 1 PUFF INHALER IH SCH ×4 (03:57→21:24)
[2020-05-05 04:11] LABS: ABG Base Excess 4 mEq/L (-2 to 3); ABG HCO3 30 mEq/L (21-27); ABG Oxygen Saturation 100 % (95-98); ABG PCO2 52 mmHg (35-45); ABG PH 7.36 pH Units (7.32-7.45); ABG PO2 191 mmHg (85-104); ABG TCO2 31 mEq/L (20-26); Blood Gas Modality ASSIST CONTROL; Blood Gas VT 400 cc
[2020-05-05] MEDS: Norepinephrine 4 MG/254 ML IV.SOLN IVC SCH (04:20)
[2020-05-05] MEDS: Dexmedetomidine HCl 400 MCG/100 ML MLS IVC SCH ×3 (04:20→20:39)
[2020-05-05] MEDS: Artificial Tears SOLN 15 ML BOTTLE BOTH EYES SCH ×5 (04:21→19:32)
[2020-05-05] MEDS: Insulin LISPRO 300 UNITS/3 ML VIAL SQ SCH ×5 (04:58→20:17)
[2020-05-05] MEDS: Cefepime HCl 1,000 MG in Water for inj. (sterile) 10 ML IVP SCH ×2 (05:20→16:57)
[2020-05-05] MEDS: FentaNYL (PF) 1,000 MCG/100 ML IV.SOLN IVC SCH ×3 (06:03→18:00)
[2020-05-05 06:17] LABS: VBG Ionized Calcium 1.28 mmol/L (1.15-1.35)
[2020-05-05 06:23] LABS: Hematocrit 26.4 % (35.3-44.9); Hemoglobin 8.3 g/dL (11.5-15.4); Mean Corpuscular HGB Conc 31.4 g/dL (31.6-35.5); Mean Corpuscular Hemoglobin 29.7 pg (28.0-33.3); Mean Corpuscular Volume 94.6 fL (83.0-100.0); Mean Platelet Volume 10.4 fL (9.4-12.4); Nucleated Red Blood Cells 0.1 /100 WBC (0); Platelet Count 220 K/mcL (140-400); Red Blood Count 2.79 M/mcL (3.82-4.97); Red Cell Distribution Width 13.3 % (11.5-14.5); White Blood Count 18.6 K/mcL (4.3-11.1)
[2020-05-05 06:44] LABS: Albumin 3.4 g/dL (3.5-5.7); Albumin/Globulin Ratio 1.4 (1.1-2.2); Bilirubin,Total 0.5 mg/dL (0.3-1.0); Calcium 9.9 mg/dL (8.6-10.3); Globulin 2.5 g/dL (2.4-3.5); Magnesium 2.2 mg/dL (1.6-2.6); Phosphorous 4.3 mg/dL (2.7-4.5); Potassium 4.9 mEq/L (3.5-5.1); Total Protein 5.9 g/dL (6.4-8.9)
[2020-05-05 07:19] LABS: Lymphocytes # 1.5 K/mcL (0.6-4.6); Monocytes # 0.7 K/mcL (0.0-1.3); Neutrophils # 16.4 K/mcL (1.6-8.9); Platelet Estimate Normal (Normal); Toxic Granulation Present (Not Present)
[2020-05-05] MEDS: Pantoprazole 40 MG VIAL IVP SCH (07:26)
[2020-05-05] MEDS: Dexamethasone 4 MG/ML VIAL IVP SCH (07:26)
[2020-05-05] MEDS: Chlorhexidine Rinse 15 ML MOUTHWASH MM SCH ×2 (07:26→19:32)
[2020-05-05] MEDS: Aspirin 81 MG TAB.CHEW PO SCH (07:27)
[2020-05-05] MEDS: Insulin DETEMIR 100 UNIT/ML X5UNITS SQ SCH ×2 (07:27→20:17)
[2020-05-05] MEDS ORDERED: Furosemide 40 MG/4 ML VIAL ONE (09:08)
[2020-05-05] MEDS: Furosemide 40 MG/4 ML VIAL IVP SCH ×2 (09:11→19:32)
[2020-05-05] MEDS: Midazolam HCl 50 MG/100 ML IV.SOLN IVC SCH (15:07)
[2020-05-05] MEDS: *HR* Heparin 5,000 UNIT/ML VIAL SQ SCH (16:57)
[2020-05-06] MEDS: Artificial Tears SOLN 15 ML BOTTLE BOTH EYES SCH ×6 (00:13→21:11)
[2020-05-06] MEDS: FentaNYL (PF) 1,000 MCG/100 ML IV.SOLN IVC SCH ×3 (01:43→21:45)
[2020-05-06] MEDS: Ipratropium 1 PUFF INHALER IH SCH ×4 (03:17→22:05)
[2020-05-06 04:27] LABS: ABG Base Excess 6 mEq/L (-2 to 3); ABG HCO3 31 mEq/L (21-27); ABG Oxygen Saturation 93 % (95-98); ABG PCO2 48 mmHg (35-45); ABG PH 7.42 pH Units (7.32-7.45); ABG PO2 68 mmHg (85-104); ABG TCO2 32 mEq/L (20-26); Blood Gas Modality ASSIST CONTROL; Blood Gas VT 400 cc
[2020-05-06 04:32] LABS: Basophils % 0.1 %; Eosinophils % 0.1 %; Hematocrit 26.3 % (35.3-44.9); Hemoglobin 8.2 g/dL (11.5-15.4); Lymphocytes % 6.1 %; Mean Corpuscular HGB Conc 31.2 g/dL (31.6-35.5); Mean Corpuscular Hemoglobin 28.9 pg (28.0-33.3); Mean Corpuscular Volume 92.6 fL (83.0-100.0); Mean Platelet Volume 10.3 fL (9.4-12.4); Monocytes # 0.9 K/mcL (0.0-1.3); Monocytes % 5.7 %; Platelet Count 214 K/mcL (140-400); Red Blood Count 2.84 M/mcL (3.82-4.97); Red Cell Distribution Width 13.3 % (11.5-14.5); White Blood Count 16.4 K/mcL (4.3-11.1)
[2020-05-06 04:35] LABS: VBG Ionized Calcium 1.28 mmol/L (1.15-1.35)
[2020-05-06 04:52] LABS: Calcium 9.6 mg/dL (8.6-10.3); Magnesium 1.9 mg/dL (1.6-2.6); Phosphorous 3.9 mg/dL (2.7-4.5); Potassium 4.4 mEq/L (3.5-5.1)
[2020-05-06] MEDS: Dexmedetomidine HCl 400 MCG/100 ML MLS IVC SCH ×3 (04:54→20:35)
[2020-05-06] MEDS: Norepinephrine 4 MG/254 ML IV.SOLN IVC SCH (05:01)
[2020-05-06] MEDS: Insulin LISPRO 300 UNITS/3 ML VIAL SQ SCH ×6 (05:02→21:11)
[2020-05-06] MEDS: Cefepime HCl 1,000 MG in Water for inj. (sterile) 10 ML IVP SCH ×2 (05:48→18:34)
[2020-05-06] MEDS: *HR* Heparin 5,000 UNIT/ML VIAL SQ SCH ×2 (05:49→18:34)
[2020-05-06] MEDS: Chlorhexidine Rinse 15 ML MOUTHWASH MM SCH ×2 (08:54→20:36)
[2020-05-06] MEDS: Aspirin 81 MG TAB.CHEW PO SCH (08:54)
[2020-05-06] MEDS: Pantoprazole 40 MG VIAL IVP SCH (08:54)
[2020-05-06] MEDS: Insulin DETEMIR 100 UNIT/ML X5UNITS SQ SCH ×2 (08:54→20:39)
[2020-05-06] MEDS: Dexamethasone 4 MG/ML VIAL IVP SCH (08:55)
[2020-05-06] MEDS: Furosemide 40 MG/4 ML VIAL IVP SCH ×2 (08:55→20:36)
[2020-05-06] MEDS: Midazolam HCl 50 MG/100 ML IV.SOLN IVC SCH (18:49)
[2020-05-07] MEDS: Artificial Tears SOLN 15 ML BOTTLE BOTH EYES SCH ×7 (00:38→23:17)
[2020-05-07] MEDS: Insulin LISPRO 300 UNITS/3 ML VIAL SQ SCH ×7 (00:38→23:17)
[2020-05-07] MEDS: Dexmedetomidine HCl 400 MCG/100 ML MLS IVC SCH ×3 (03:00→21:44)
[2020-05-07] MEDS: Ipratropium 1 PUFF INHALER IH SCH ×4 (03:43→21:36)
[2020-05-07 04:40] LABS: Basophils % 0.1 %; Eosinophils % 0.1 %; Hematocrit 27.4 % (35.3-44.9); Hemoglobin 8.7 g/dL (11.5-15.4); Immature Granulocytes % 1.8 % (0-4); Lymphocytes # 1.1 K/mcL (0.6-4.6); Lymphocytes % 6.6 %; Mean Corpuscular HGB Conc 31.8 g/dL (31.6-35.5); Mean Corpuscular Volume 94.5 fL (83.0-100.0); Mean Platelet Volume 10.6 fL (9.4-12.4); Monocytes # 0.9 K/mcL (0.0-1.3); Monocytes % 5.5 %; Neutrophils # 13.9 K/mcL (1.6-8.9); Platelet Count 192 K/mcL (140-400); Red Cell Distribution Width 13.4 % (11.5-14.5); Segmented Neutrophils % 85.9 %; White Blood Count 16.2 K/mcL (4.3-11.1)
[2020-05-07] MEDS: FentaNYL (PF) 1,000 MCG/100 ML IV.SOLN IVC SCH ×2 (04:45→13:39)
[2020-05-07 04:47] LABS: ABG Base Excess 3 mEq/L (-2 to 3); ABG HCO3 27 mEq/L (21-27); ABG Oxygen Saturation 94 % (95-98); ABG PCO2 41 mmHg (35-45); ABG PH 7.43 pH Units (7.32-7.45); ABG PO2 70 mmHg (85-104); ABG TCO2 29 mEq/L (20-26); Blood Gas Modality ASSIST CONTROL; Blood Gas VT 400 cc
[2020-05-07 04:58] LABS: Calcium 9.2 mg/dL (8.6-10.3); Magnesium 1.7 mg/dL (1.6-2.6); Phosphorous 3.9 mg/dL (2.7-4.5); Potassium 4.3 mEq/L (3.5-5.1)
[2020-05-07] MEDS: *HR* Heparin 5,000 UNIT/ML VIAL SQ SCH ×2 (06:32→17:50)
[2020-05-07] MEDS: Norepinephrine 4 MG/254 ML IV.SOLN IVC SCH ×2 (06:32→23:18)
[2020-05-07] MEDS: Pantoprazole 40 MG VIAL IVP SCH (07:58)
[2020-05-07] MEDS: Chlorhexidine Rinse 15 ML MOUTHWASH MM SCH ×2 (07:59→19:44)
[2020-05-07] MEDS: Furosemide 40 MG/4 ML VIAL IVP SCH ×2 (07:59→19:43)
[2020-05-07] MEDS: Dexamethasone 4 MG/ML VIAL IVP SCH (07:59)
[2020-05-07] MEDS: Aspirin 81 MG TAB.CHEW PO SCH (08:00)
[2020-05-07] MEDS: Insulin DETEMIR 100 UNIT/ML X5UNITS SQ SCH ×2 (08:02→20:15)
[2020-05-07] MEDS: Midazolam HCl 50 MG/100 ML IV.SOLN IVC SCH (19:30)
[2020-05-08] MEDS: Ipratropium 1 PUFF INHALER IH SCH ×4 (03:10→21:57)
[2020-05-08] MEDS: Insulin LISPRO 300 UNITS/3 ML VIAL SQ SCH ×6 (03:36→23:47)
[2020-05-08] MEDS: Artificial Tears SOLN 15 ML BOTTLE BOTH EYES SCH ×6 (03:37→23:46)
[2020-05-08] MEDS: FentaNYL (PF) 1,000 MCG/100 ML IV.SOLN IVC SCH ×3 (03:37→20:38)
[2020-05-08 03:52] LABS: Basophils % 0.1 %; Eosinophils % 0.1 %; Hematocrit 27.1 % (35.3-44.9); Hemoglobin 8.1 g/dL (11.5-15.4); Immature Granulocytes % 1.3 % (0-4); Lymphocytes # 1.1 K/mcL (0.6-4.6); Mean Corpuscular HGB Conc 29.9 g/dL (31.6-35.5); Mean Corpuscular Hemoglobin 28.2 pg (28.0-33.3); Mean Corpuscular Volume 94.4 fL (83.0-100.0); Mean Platelet Volume 10.8 fL (9.4-12.4); Monocytes % 6.5 %; Neutrophils # 13.5 K/mcL (1.6-8.9); Nucleated Red Blood Cells 0.1 /100 WBC (0); Platelet Count 185 K/mcL (140-400); Red Blood Count 2.87 M/mcL (3.82-4.97); Red Cell Distribution Width 13.8 % (11.5-14.5); White Blood Count 15.9 K/mcL (4.3-11.1)
[2020-05-08 04:02] LABS: VBG Ionized Calcium 1.15 mmol/L (1.15-1.35)
[2020-05-08 04:10] LABS: Calcium 9.2 mg/dL (8.6-10.3); Magnesium 1.6 mg/dL (1.6-2.6); Phosphorous 4.1 mg/dL (2.7-4.5); Potassium 4.1 mEq/L (3.5-5.1)
[2020-05-08] MEDS: *HR* Heparin 5,000 UNIT/ML VIAL SQ SCH ×2 (05:03→16:14)
[2020-05-08 05:13] LABS: ABG Base Excess 6 mEq/L (-2 to 3); ABG HCO3 31 mEq/L (21-27); ABG Oxygen Saturation 95 % (95-98); ABG PCO2 47 mmHg (35-45); ABG PH 7.43 pH Units (7.32-7.45); ABG PO2 75 mmHg (85-104); ABG TCO2 33 mEq/L (20-26); Blood Gas Modality AF; Blood Gas VT 400 cc
[2020-05-08] MEDS: Dexmedetomidine HCl 400 MCG/100 ML MLS IVC SCH ×3 (07:13→16:14)
[2020-05-08] MEDS: Chlorhexidine Rinse 15 ML MOUTHWASH MM SCH ×2 (08:44→19:46)
[2020-05-08] MEDS: Aspirin 81 MG TAB.CHEW PO SCH (08:44)
[2020-05-08] MEDS: Pantoprazole 40 MG VIAL IVP SCH (08:44)
[2020-05-08] MEDS: Insulin DETEMIR 100 UNIT/ML X5UNITS SQ SCH ×2 (08:45→20:24)
[2020-05-08] MEDS: Midazolam HCl 50 MG/100 ML IV.SOLN IVC SCH (16:50)
[2020-05-08 17:01] LABS: Hematocrit 23.6 % (35.3-44.9); Hemoglobin 7.2 g/dL (11.5-15.4)
[2020-05-08] MEDS ORDERED: 0.9 % Sodium Chloride 250 ML ONE (18:43)
[2020-05-09] MEDS: Dexmedetomidine HCl 400 MCG/100 ML MLS IVC SCH ×2 (03:07→18:16)
[2020-05-09] MEDS: Ipratropium 1 PUFF INHALER IH SCH ×5 (03:46→21:46)
[2020-05-09 03:57] LABS: ABG Base Excess 5 mEq/L (-2 to 3); ABG HCO3 31 mEq/L (21-27); ABG Oxygen Saturation 95 % (95-98); ABG PCO2 50 mmHg (35-45); ABG PO2 78 mmHg (85-104); ABG TCO2 33 mEq/L (20-26); Blood Gas VT 400 cc
[2020-05-09] MEDS: Norepinephrine 4 MG/254 ML IV.SOLN IVC SCH (04:23)
[2020-05-09] MEDS: Artificial Tears SOLN 15 ML BOTTLE BOTH EYES SCH ×5 (04:23→19:41)
[2020-05-09] MEDS: Insulin LISPRO 300 UNITS/3 ML VIAL SQ SCH ×5 (04:24→19:41)
[2020-05-09 04:33] LABS: Basophils % 0.1 %; Eosinophils # 0.1 K/mcL (0.0-0.6); Eosinophils % 0.3 %; Hematocrit 31.3 % (35.3-44.9); Hemoglobin 9.5 g/dL (11.5-15.4); Immature Granulocytes % 1.1 % (0-4); Lymphocytes # 1.5 K/mcL (0.6-4.6); Lymphocytes % 7.9 %; Mean Corpuscular HGB Conc 30.4 g/dL (31.6-35.5); Mean Corpuscular Hemoglobin 27.9 pg (28.0-33.3); Mean Corpuscular Volume 92.1 fL (83.0-100.0); Mean Platelet Volume 10.5 fL (9.4-12.4); Monocytes # 1.1 K/mcL (0.0-1.3); Monocytes % 5.9 %; Neutrophils # 16.2 K/mcL (1.6-8.9); Nucleated Red Blood Cells 0.1 /100 WBC (0); Platelet Count 177 K/mcL (140-400); Red Cell Distribution Width 17.1 % (11.5-14.5); Segmented Neutrophils % 84.7 %; White Blood Count 19.1 K/mcL (4.3-11.1)
[2020-05-09 04:34] LABS: VBG Ionized Calcium 1.15 mmol/L (1.15-1.35)
[2020-05-09 04:52] LABS: Phosphorous 4.8 mg/dL (2.7-4.5)
[2020-05-09 04:54] LABS: Blood Urea Nitrogen > 130 mg/dL (8-23); Calcium 9.2 mg/dL (8.6-10.3); Carbon Dioxide 30 mEq/L (23-29); Chloride 96 mEq/L (98-107); Glucose 189 mg/dL (70-105); Potassium 4.2 mEq/L (3.5-5.1); Sodium 136 mEq/L (136-145); eGFR For African Americans 32 (> 60); eGFR For Non-African Americans 27 (> 60)
[2020-05-09] MEDS: *HR* Heparin 5,000 UNIT/ML VIAL SQ SCH ×2 (05:20→18:30)
[2020-05-09] MEDS: FentaNYL (PF) 1,000 MCG/100 ML IV.SOLN IVC SCH ×2 (05:21→20:28)
[2020-05-09] MEDS: Chlorhexidine Rinse 15 ML MOUTHWASH MM SCH ×2 (08:39→19:41)
[2020-05-09] MEDS: Aspirin 81 MG TAB.CHEW PO SCH (08:40)
[2020-05-09] MEDS: Pantoprazole 40 MG VIAL IVP SCH ×2 (08:41→18:30)
[2020-05-09] MEDS: Insulin DETEMIR 100 UNIT/ML X5UNITS SQ SCH ×2 (08:57→19:41)
[2020-05-09 17:19] LABS: Hematocrit 30.3 % (35.3-44.9); Hemoglobin 9.3 g/dL (11.5-15.4)
[2020-05-09] MEDS: Midazolam HCl 50 MG/100 ML IV.SOLN IVC SCH (19:41)
[2020-05-10] MEDS: Ipratropium 1 PUFF INHALER IH SCH ×4 (03:36→21:49)
[2020-05-10] MEDS: Norepinephrine 4 MG/254 ML IV.SOLN IVC SCH (04:27)
[2020-05-10] MEDS: Artificial Tears SOLN 15 ML BOTTLE BOTH EYES SCH ×6 (04:28→19:26)
[2020-05-10] MEDS: Insulin LISPRO 300 UNITS/3 ML VIAL SQ SCH ×6 (04:28→19:42)
[2020-05-10 04:39] LABS: Basophils % 0.1 %; Eosinophils # 0.1 K/mcL (0.0-0.6); Eosinophils % 0.7 %; Hemoglobin 8.7 g/dL (11.5-15.4); Immature Granulocytes % 0.8 % (0-4); Lymphocytes % 7.9 %; Mean Corpuscular Hemoglobin 27.4 pg (28.0-33.3); Mean Corpuscular Volume 91.2 fL (83.0-100.0); Mean Platelet Volume 10.2 fL (9.4-12.4); Monocytes # 0.8 K/mcL (0.0-1.3); Monocytes % 5.8 %; Neutrophils # 11.1 K/mcL (1.6-8.9); Platelet Count 170 K/mcL (140-400); Red Blood Count 3.18 M/mcL (3.82-4.97); Red Cell Distribution Width 16.7 % (11.5-14.5); Segmented Neutrophils % 84.7 %; White Blood Count 13.1 K/mcL (4.3-11.1)
[2020-05-10 04:44] LABS: VBG Ionized Calcium 1.18 mmol/L (1.15-1.35)
[2020-05-10 04:58] LABS: Albumin 3.1 g/dL (3.5-5.7); Albumin/Globulin Ratio 1.2 (1.1-2.2); Bilirubin,Total 0.5 mg/dL (0.3-1.0); Globulin 2.6 g/dL (2.4-3.5); Magnesium 2.1 mg/dL (1.6-2.6); Phosphorous 4.4 mg/dL (2.7-4.5); Potassium 4.2 mEq/L (3.5-5.1); Total Protein 5.7 g/dL (6.4-8.9)
[2020-05-10 05:20] LABS: ABG Base Excess 6 mEq/L (-2 to 3); ABG HCO3 31 mEq/L (21-27); ABG Oxygen Saturation 97 % (95-98); ABG PCO2 49 mmHg (35-45); ABG PH 7.41 pH Units (7.32-7.45); ABG PO2 86 mmHg (85-104); ABG TCO2 33 mEq/L (20-26); Blood Gas VT 450 cc
[2020-05-10] MEDS: *HR* Heparin 5,000 UNIT/ML VIAL SQ SCH ×2 (05:21→17:50)
[2020-05-10] MEDS: Dexmedetomidine HCl 400 MCG/100 ML MLS IVC SCH (05:21)
[2020-05-10] MEDS: Pantoprazole 40 MG VIAL IVP SCH ×2 (05:22→17:49)
[2020-05-10] MEDS: FentaNYL (PF) 1,000 MCG/100 ML IV.SOLN IVC SCH (07:22)
[2020-05-10] MEDS: Chlorhexidine Rinse 15 ML MOUTHWASH MM SCH ×2 (07:47→19:26)
[2020-05-10] MEDS: Aspirin 81 MG TAB.CHEW PO SCH (07:47)
[2020-05-10] MEDS: Insulin DETEMIR 100 UNIT/ML X5UNITS SQ SCH ×2 (11:44→22:32)
[2020-05-10] MEDS: *HR* Metoprolol 5 MG/5 ML VIAL IVP PRN (15:30)
[2020-05-10 16:10] LABS: Hematocrit 32.1 % (35.3-44.9); Hemoglobin 10.1 g/dL (11.5-15.4)
[2020-05-10] MEDS: Midazolam HCl 50 MG/100 ML IV.SOLN IVC SCH (17:50)
[2020-05-11] MEDS: Insulin LISPRO 300 UNITS/3 ML VIAL SQ SCH ×4 (00:33→17:53)
[2020-05-11] MEDS: Artificial Tears SOLN 15 ML BOTTLE BOTH EYES SCH ×6 (00:33→20:55)
[2020-05-11] MEDS: Ipratropium 1 PUFF INHALER IH SCH ×4 (03:41→21:39)
[2020-05-11 03:52] LABS: Basophils % 0.2 %; Eosinophils # 0.2 K/mcL (0.0-0.6); Eosinophils % 1.2 %; Hematocrit 33.4 % (35.3-44.9); Hemoglobin 10.1 g/dL (11.5-15.4); Lymphocytes % 5.9 %; Mean Corpuscular HGB Conc 30.2 g/dL (31.6-35.5); Mean Corpuscular Volume 92.5 fL (83.0-100.0); Mean Platelet Volume 10.3 fL (9.4-12.4); Monocytes # 1.1 K/mcL (0.0-1.3); Monocytes % 6.6 %; Platelet Count 215 K/mcL (140-400); Red Blood Count 3.61 M/mcL (3.82-4.97); Red Cell Distribution Width 16.8 % (11.5-14.5); Segmented Neutrophils % 85.1 %; White Blood Count 16.4 K/mcL (4.3-11.1)
[2020-05-11 03:53] LABS: VBG Ionized Calcium 1.18 mmol/L (1.15-1.35)
[2020-05-11 03:56] LABS: INR 1.1; Prothrombin Time 12.6 Seconds (9.4-12.1)
[2020-05-11 04:11] LABS: Albumin 3.4 g/dL (3.5-5.7); Albumin/Globulin Ratio 1.2 (1.1-2.2); Bilirubin,Total 0.6 mg/dL (0.3-1.0); Calcium 9.3 mg/dL (8.6-10.3); Globulin 2.9 g/dL (2.4-3.5); Magnesium 2.1 mg/dL (1.6-2.6); Phosphorous 4.5 mg/dL (2.7-4.5); Potassium 4.3 mEq/L (3.5-5.1); Total Protein 6.3 g/dL (6.4-8.9)
[2020-05-11] MEDS: Norepinephrine 4 MG/254 ML IV.SOLN IVC SCH (04:15)
[2020-05-11] MEDS: Pantoprazole 40 MG VIAL IVP SCH ×2 (05:06→17:40)
[2020-05-11] MEDS: *HR* Heparin 5,000 UNIT/ML VIAL SQ SCH ×2 (05:06→17:40)
[2020-05-11] MEDS: Aspirin 81 MG TAB.CHEW PO SCH (08:35)
[2020-05-11] MEDS: Insulin DETEMIR 100 UNIT/ML X5UNITS SQ SCH ×2 (08:36→20:54)
[2020-05-11] MEDS: Chlorhexidine Rinse 15 ML MOUTHWASH MM SCH (08:36)
[2020-05-11] MEDS ORDERED: D5% in Water 1,000 ML IVC PRN ×2 (10:07→15:44)
[2020-05-11] MEDS ORDERED: Dextrose Gel 15 GM/37.5 ML TUBE PO PRN ×6 (10:07→15:44)
[2020-05-11] MEDS ORDERED: *HR* Dextrose 50 % in Water (Vial) 50 ML VIAL IVP PRN ×4 (10:07→15:44)
[2020-05-11] MEDS ORDERED: Insulin LISPRO 300 UNITS/3 ML VIAL SQ SCH (12:00)
[2020-05-11] MEDS ORDERED: Artificial Tears SOLN 15 ML BOTTLE BOTH EYES PRN (15:44)
[2020-05-11] MEDS ORDERED: Potassium Phosphate 44 MEQ in 0.9 % Sodium Chloride 250 ML IVPB PRN (15:44)
[2020-05-11] MEDS ORDERED: *HR* Metoprolol 5 MG/5 ML VIAL IVP PRN (15:44)
[2020-05-11] MEDS ORDERED: Naloxone 0.4 MG/ML INJ IVP PRN (15:44)
[2020-05-11] MEDS ORDERED: Potassium Chloride 40 MEQ/200 ML BAG IVPB PRN (15:44)
[2020-05-11] MEDS ORDERED: Ipratropium 1 PUFF INHALER IH PRN (15:44)
[2020-05-11] MEDS ORDERED: Acetaminophen 325 MG TABLET PO PRN ×2 (15:44)
[2020-05-11] MEDS ORDERED: Ondansetron 4 MG/2 ML VIAL IVP PRN (15:44)
[2020-05-11] MEDS ORDERED: Calcium Gluconate 1gm/50mL 1 GM/50 ML BAG IVPB PRN (15:44)
[2020-05-11] MEDS ORDERED: *HR* Labetalol 20 MG/4 ML SYRINGE IVP ONE (21:47)
[2020-05-12] MEDS: Insulin LISPRO 300 UNITS/3 ML VIAL SQ SCH ×4 (00:04→17:31)
[2020-05-12] MEDS: Artificial Tears SOLN 15 ML BOTTLE BOTH EYES SCH ×6 (00:04→20:05)
[2020-05-12] MEDS: Ipratropium 1 PUFF INHALER IH SCH ×4 (03:39→22:14)
[2020-05-12] MEDS ORDERED: *HR* Labetalol 20 MG/4 ML SYRINGE IVP ONE (04:13)
[2020-05-12 05:05] LABS: Basophils % 0.1 %; Eosinophils % 0.3 %; Immature Granulocytes % 0.6 % (0-4); Lymphocytes # 0.4 K/mcL (0.6-4.6); Lymphocytes % 3.3 %; Mean Corpuscular Hemoglobin 28.3 pg (28.0-33.3); Mean Corpuscular Volume 94.3 fL (83.0-100.0); Mean Platelet Volume 10.2 fL (9.4-12.4); Monocytes # 0.6 K/mcL (0.0-1.3); Monocytes % 5.1 %; Neutrophils # 10.1 K/mcL (1.6-8.9); Platelet Count 167 K/mcL (140-400); Red Blood Count 3.18 M/mcL (3.82-4.97); Red Cell Distribution Width 16.5 % (11.5-14.5); Segmented Neutrophils % 90.6 %; White Blood Count 11.1 K/mcL (4.3-11.1)
[2020-05-12 05:20] LABS: Albumin 3.2 g/dL (3.5-5.7); Albumin/Globulin Ratio 1.3 (1.1-2.2); Bilirubin,Total 0.5 mg/dL (0.3-1.0); Calcium 9.2 mg/dL (8.6-10.3); Globulin 2.5 g/dL (2.4-3.5); Total Protein 5.7 g/dL (6.4-8.9)
[2020-05-12] MEDS: Pantoprazole 40 MG VIAL IVP SCH (05:51)
[2020-05-12] MEDS: *HR* Heparin 5,000 UNIT/ML VIAL SQ SCH ×2 (05:52→17:32)
[2020-05-12] MEDS: Aspirin 81 MG TAB.CHEW PO SCH (09:13)
[2020-05-12] MEDS: Metoprolol XL (24 HR) Succ 50 MG TAB.ER.24H PO SCH (09:14)
[2020-05-12] MEDS: Insulin DETEMIR 100 UNIT/ML X5UNITS SQ SCH ×2 (09:16→20:06)
[2020-05-13] MEDS: Artificial Tears SOLN 15 ML BOTTLE BOTH EYES SCH ×8 (01:28→22:49)
[2020-05-13] MEDS: Ipratropium 1 PUFF INHALER IH SCH ×5 (03:25→23:59)
[2020-05-13] MEDS: *HR* Heparin 5,000 UNIT/ML VIAL SQ SCH ×2 (04:55→19:04)
[2020-05-13 06:06] LABS: Basophils % 0.1 %; Eosinophils # 0.1 K/mcL (0.0-0.6); Hematocrit 34.2 % (35.3-44.9); Hemoglobin 10.5 g/dL (11.5-15.4); Immature Granulocytes % 0.6 % (0-4); Lymphocytes # 0.6 K/mcL (0.6-4.6); Lymphocytes % 4.2 %; Mean Corpuscular HGB Conc 30.7 g/dL (31.6-35.5); Mean Corpuscular Hemoglobin 29.1 pg (28.0-33.3); Mean Corpuscular Volume 94.7 fL (83.0-100.0); Mean Platelet Volume 10.7 fL (9.4-12.4); Monocytes # 0.9 K/mcL (0.0-1.3); Monocytes % 6.7 %; Neutrophils # 11.4 K/mcL (1.6-8.9); Platelet Count 201 K/mcL (140-400); Red Blood Count 3.61 M/mcL (3.82-4.97); Red Cell Distribution Width 16.6 % (11.5-14.5); Segmented Neutrophils % 87.4 %; White Blood Count 13.1 K/mcL (4.3-11.1)
[2020-05-13 06:13] LABS: Calcium 9.8 mg/dL (8.6-10.3); Magnesium 2.1 mg/dL (1.6-2.6); Phosphorous 4.2 mg/dL (2.7-4.5); Potassium 4.3 mEq/L (3.5-5.1)
[2020-05-13] MEDS: Insulin LISPRO 300 UNITS/3 ML VIAL SQ SCH ×3 (07:58→19:24)
[2020-05-13] MEDS: Aspirin 81 MG TAB.CHEW PO SCH (08:04)
[2020-05-13] MEDS: Metoprolol XL (24 HR) Succ 50 MG TAB.ER.24H PO SCH (08:04)
[2020-05-13] MEDS: Insulin DETEMIR 100 UNIT/ML X5UNITS SQ SCH ×2 (08:05→20:52)
[2020-05-13] MEDS ORDERED: *HR* LORazepam 2 MG/ML VIAL ONE ×3 (15:24→15:40)
[2020-05-13] MEDS ORDERED: *HR* LORazepam 2 MG/ML VIAL IVP ONE (15:26)
[2020-05-13] MEDS ORDERED: *HR* LORazepam 2 MG/ML VIAL IVP PRN (15:33)
[2020-05-13 15:52] LABS: ABG Base Excess 4 mEq/L (-2 to 3); ABG HCO3 36 mEq/L (21-27); ABG Oxygen Saturation 83 % (95-98); ABG PCO2 92 mmHg (35-45); ABG PO2 61 mmHg (85-104); ABG TCO2 39 mEq/L (20-26)
[2020-05-13] MEDS ORDERED: diazePAM 10 MG/2 ML SYRINGE IVP STA (15:52)
[2020-05-13] MEDS ORDERED: levETIRAcetam 1,000 MG in 0.9 % Sodium Chloride 100 ML IVPB ONE (15:59)
[2020-05-13] MEDS ORDERED: Amiodarone Premix 360 MG/200 ML BAG IVC ONE (16:19)
[2020-05-13] MEDS ORDERED: Hydrocortisone Sodium Succ 100 MG/2 ML VIAL IVP ONE (16:23)
[2020-05-13] MEDS ORDERED: Isovue-370 500 ML BOTTLE IVP ONE (17:29)
[2020-05-13] MEDS ORDERED: Artificial Tears SOLN 15 ML BOTTLE BOTH EYES PRN (17:33)
[2020-05-13 17:36] LABS: ABG Base Excess 10 mEq/L (-2 to 3); ABG HCO3 32 mEq/L (21-27); ABG Oxygen Saturation 100 % (95-98); ABG PCO2 31 mmHg (35-45); ABG PH 7.62 pH Units (7.32-7.45); ABG PO2 441 mmHg (85-104); ABG TCO2 33 mEq/L (20-26); Blood Gas VT 500 cc
[2020-05-13] MEDS ORDERED: acetaZOLAMIDE 500 MG in Water for inj. (sterile) 5 ML IVP ONE (17:46)
[2020-05-13] MEDS ORDERED: Vancomycin 1,500 MG/265 ML IV.SOLN IVPB SCH (18:00)
[2020-05-13] MEDS: Norepinephrine 4 MG/254 ML IV.SOLN IVC SCH (18:50)
[2020-05-13 18:54] LABS: Basophils % 0.1 %; Eosinophils # 0.1 K/mcL (0.0-0.6); Eosinophils % 0.5 %; Hematocrit 30.2 % (35.3-44.9); Lymphocytes # 0.4 K/mcL (0.6-4.6); Lymphocytes % 2.6 %; Mean Corpuscular HGB Conc 29.1 g/dL (31.6-35.5); Mean Corpuscular Hemoglobin 27.8 pg (28.0-33.3); Mean Corpuscular Volume 95.6 fL (83.0-100.0); Mean Platelet Volume 10.3 fL (9.4-12.4); Monocytes # 0.7 K/mcL (0.0-1.3); Monocytes % 4.9 %; Neutrophils # 12.1 K/mcL (1.6-8.9); Platelet Count 202 K/mcL (140-400); Red Blood Count 3.16 M/mcL (3.82-4.97); Red Cell Distribution Width 16.4 % (11.5-14.5); Segmented Neutrophils % 90.9 %; White Blood Count 13.3 K/mcL (4.3-11.1)
[2020-05-13 18:56] LABS: Hemoglobin 8.8 g/dL (11.5-15.4)
[2020-05-13 19:01] LABS: VBG Ionized Calcium 1.15 mmol/L (1.15-1.35)
[2020-05-13 19:15] LABS: Albumin 2.8 g/dL (3.5-5.7); Albumin/Globulin Ratio 1.2 (1.1-2.2); Bilirubin,Direct 0.2 mg/dL (0.0-0.2); Bilirubin,Indirect 0.6 mg/dL (0.0-1.0); Bilirubin,Total 0.8 mg/dL (0.3-1.0); Calcium 8.6 mg/dL (8.6-10.3); Globulin 2.3 g/dL (2.4-3.5); Phosphorous 2.9 mg/dL (2.7-4.5); Potassium 3.8 mEq/L (3.5-5.1); Total Protein 5.1 g/dL (6.4-8.9)
[2020-05-13 19:17] LABS: INR 1.2; Prothrombin Time 13.4 Seconds (9.4-12.1)
[2020-05-13] MEDS: Vasopressin 40 UNIT in D5% in Water 100 ML IVC SCH (20:01)
[2020-05-13] MEDS: Midazolam HCl 50 MG/100 ML IV.SOLN IVC SCH (20:02)
[2020-05-13 20:17] LABS: ABG Base Excess 10 mEq/L (-2 to 3); ABG HCO3 34 mEq/L (21-27); ABG Oxygen Saturation 100 % (95-98); ABG PCO2 43 mmHg (35-45); ABG PO2 236 mmHg (85-104); ABG TCO2 35 mEq/L (20-26); Blood Gas Modality ASSIST CONTROL; Blood Gas VT 480 cc
[2020-05-13] MEDS: FentaNYL (PF) 1,000 MCG/100 ML IV.SOLN IVC SCH (20:52)
[2020-05-13] MEDS: Cefepime HCl 2,000 MG in Water for inj. (sterile) 20 ML IVP SCH (21:01)
[2020-05-13] MEDS: Chlorhexidine Rinse 15 ML MOUTHWASH MM SCH (21:01)
[2020-05-13] MEDS: Pantoprazole 40 MG VIAL IVP SCH (21:09)
[2020-05-13 21:20] LABS: Bilirubin,Urine Negative (Negative); Blood,Urine Trace-lysed (Negative); Clarity,Urine Cloudy (Clear); Color,Urine Yellow (Yellow); Glucose,Urine (UA) Normal (Normal); Ketones,Urine Negative (Negative); Leukocyte Esterase,Urine Moderate (Negative); Nitrite,Urine Negative (Negative); PH,Urine 7.5 pH Units (5.0-8.0); Protein,Urine 100 mg/dL (Neg-Trace); Specific Gravity,Urine 1.015 (1.010-1.025); Urobilinogen,Urine Normal (Normal)
[2020-05-13 21:22] LABS: Bacteria,Urine Moderate per hpf (None-Few); Budding Yeast,Urine Many per hpf (None Seen); Mucus,Urine Few per lpf (None-Few); RBC,Urine TNTC per hpf (0-3); Renal Epithelial Cells,Urine Few per hpf (None-Few); Squamous Epithelial Cell,Urine Few per hpf (None-Few); Transitional Epi Cells,Urine Few per hpf (None-Few); WBC,Urine TNTC per hpf (0-3)
[2020-05-13] MEDS ORDERED: Amiodarone 150 MG in D5% in Water 100 ML IVPB ONE (22:24)
[2020-05-14] MEDS: Artificial Tears SOLN 15 ML BOTTLE BOTH EYES SCH ×9 (00:02→23:34)
[2020-05-14] MEDS ORDERED: Amiodarone Premix 360 MG/200 ML BAG IVC SCH (01:00)
[2020-05-14] MEDS ORDERED: Fluconazole 40 MG/ML UDC GTUBE ONE (01:57)
[2020-05-14 04:56] LABS: ABG Base Excess 8 mEq/L (-2 to 3); ABG HCO3 34 mEq/L (21-27); ABG Oxygen Saturation 100 % (95-98); ABG PCO2 53 mmHg (35-45); ABG PH 7.41 pH Units (7.32-7.45); ABG PO2 173 mmHg (85-104); ABG TCO2 35 mEq/L (20-26); Blood Gas Modality ASSIST CONTROL; Blood Gas VT 480 cc
[2020-05-14] MEDS: *HR* Heparin 5,000 UNIT/ML VIAL SQ SCH ×2 (05:08→17:23)
[2020-05-14] MEDS: Norepinephrine 4 MG/254 ML IV.SOLN IVC SCH (05:17)
[2020-05-14 05:24] LABS: Basophils % 0.1 %; Eosinophils # 0.2 K/mcL (0.0-0.6); Hematocrit 29.4 % (35.3-44.9); Hemoglobin 8.8 g/dL (11.5-15.4); Immature Granulocytes % 0.8 % (0-4); Lymphocytes # 1.1 K/mcL (0.6-4.6); Lymphocytes % 8.6 %; Mean Corpuscular HGB Conc 29.9 g/dL (31.6-35.5); Mean Corpuscular Hemoglobin 28.6 pg (28.0-33.3); Mean Corpuscular Volume 95.5 fL (83.0-100.0); Mean Platelet Volume 10.6 fL (9.4-12.4); Monocytes # 0.7 K/mcL (0.0-1.3); Monocytes % 5.6 %; Neutrophils # 10.2 K/mcL (1.6-8.9); Platelet Count 193 K/mcL (140-400); Red Blood Count 3.08 M/mcL (3.82-4.97); Red Cell Distribution Width 16.9 % (11.5-14.5); Segmented Neutrophils % 82.9 %; White Blood Count 12.3 K/mcL (4.3-11.1)
[2020-05-14 05:43] LABS: Calcium 8.7 mg/dL (8.6-10.3); Potassium 3.3 mEq/L (3.5-5.1)
[2020-05-14] MEDS: Cefepime HCl 2,000 MG in Water for inj. (sterile) 20 ML IVP SCH ×2 (07:39→19:27)
[2020-05-14] MEDS: Aspirin 81 MG TAB.CHEW PO SCH (07:40)
[2020-05-14] MEDS: Chlorhexidine Rinse 15 ML MOUTHWASH MM SCH ×2 (07:40→19:26)
[2020-05-14] MEDS: Pantoprazole 40 MG VIAL IVP SCH (07:40)
[2020-05-14] MEDS: Insulin LISPRO 300 UNITS/3 ML VIAL SQ SCH ×4 (07:49→23:34)
[2020-05-14] MEDS: Vasopressin 40 UNIT in D5% in Water 100 ML IVC SCH ×2 (08:06→23:35)
[2020-05-14] MEDS: Insulin DETEMIR 100 UNIT/ML X5UNITS SQ SCH ×2 (08:25→19:27)
[2020-05-14] MEDS: Metoprolol XL (24 HR) Succ 50 MG TAB.ER.24H PO SCH (09:06)
[2020-05-14] MEDS: Ipratropium 1 PUFF INHALER IH SCH ×3 (09:55→21:02)
[2020-05-14] MEDS ORDERED: Potassium Chloride Elixir 20 MEQ/15 ML UDC GTUBE ONE (11:20)
[2020-05-14 12:27] LABS: Acinetobacter baumannii by PCR Not Detected (Not Detect); Candida albicans by PCR Not Detected (Not Detect); Candida glabrata by PCR Not Detected (Not Detect); Candida krusei by PCR Not Detected (Not Detect); Candida parapsilosis by PCR Not Detected (Not Detect); Candida tropicalis by PCR Not Detected (Not Detect); Enterobacter cloacae Cmplx PCR Not Detected (Not Detect); Enterobacteriaceae by PCR Not Detected (Not Detect); Enterococcus by PCR DETECTED (Not Detect); Escherichia coli by PCR Not Detected (Not Detect); Klebsiella oxytoca by PCR Not Detected (Not Detect); Klebsiella pneumoniae by PCR Not Detected (Not Detect); Proteus by PCR Not Detected (Not Detect); Pseudomonas aeruginosa by PCR Not Detected (Not Detect); Serratia marcescens by PCR Not Detected (Not Detect); Staphylococcus aureus by PCR Not Detected (Not Detect); Staphylococcus by PCR Not Detected (Not Detect); Streptococcus agalactiae(B)PCR Not Detected (Not Detect); Streptococcus by PCR Not Detected (Not Detect); Streptococcus pneumoniae PCR Not Detected (Not Detect); Streptococcus pyogenes (A) PCR Not Detected (Not Detect); vanA/B Vancomycin-Resist Genes Not Detected (Not Detect)
[2020-05-14] MEDS: Midazolam HCl 50 MG/100 ML IV.SOLN IVC SCH (13:52)
[2020-05-14] MEDS: MetroNIDAZOLE 500 MG/100 ML 500 MG/100 ML BAG IVPB SCH ×2 (14:14→22:55)
[2020-05-14] MEDS: FentaNYL (PF) 1,000 MCG/100 ML IV.SOLN IVC SCH ×2 (14:28→14:51)
[2020-05-14] MEDS: DAPTOMYCIN IVPB SCH (16:11)
[2020-05-14] MEDS: SODIUM CHLORIDE 0.9% IVPB SCH (16:11)
[2020-05-15] MEDS: FentaNYL (PF) 1,000 MCG/100 ML IV.SOLN IVC SCH (01:02)
[2020-05-15] MEDS: Insulin LISPRO 300 UNITS/3 ML VIAL SQ SCH ×3 (04:18→18:34)
[2020-05-15] MEDS: Artificial Tears SOLN 15 ML BOTTLE BOTH EYES SCH ×5 (04:18→21:33)
[2020-05-15] MEDS: Ipratropium 1 PUFF INHALER IH SCH ×4 (04:46→21:51)
[2020-05-15 04:51] LABS: ABG Base Excess 5 mEq/L (-2 to 3); ABG HCO3 31 mEq/L (21-27); ABG Oxygen Saturation 98 % (95-98); ABG PCO2 52 mmHg (35-45); ABG PH 7.39 pH Units (7.32-7.45); ABG PO2 103 mmHg (85-104); ABG TCO2 33 mEq/L (20-26); Blood Gas VT 480 cc
[2020-05-15 04:53] LABS: VBG Ionized Calcium 1.19 mmol/L (1.15-1.35)
[2020-05-15 05:08] LABS: Basophils % 0.1 %; Eosinophils # 0.2 K/mcL (0.0-0.6); Hematocrit 28.2 % (35.3-44.9); Hemoglobin 8.4 g/dL (11.5-15.4); Immature Granulocytes % 0.5 % (0-4); Lymphocytes # 0.6 K/mcL (0.6-4.6); Lymphocytes % 6.1 %; Mean Corpuscular HGB Conc 29.8 g/dL (31.6-35.5); Mean Corpuscular Hemoglobin 27.9 pg (28.0-33.3); Mean Corpuscular Volume 93.7 fL (83.0-100.0); Mean Platelet Volume 10.6 fL (9.4-12.4); Monocytes # 0.5 K/mcL (0.0-1.3); Monocytes % 4.7 %; Neutrophils # 8.5 K/mcL (1.6-8.9); Platelet Count 143 K/mcL (140-400); Red Blood Count 3.01 M/mcL (3.82-4.97); Red Cell Distribution Width 17.2 % (11.5-14.5); Segmented Neutrophils % 86.6 %; White Blood Count 9.8 K/mcL (4.3-11.1)
[2020-05-15 05:27] LABS: Albumin 2.8 g/dL (3.5-5.7); Albumin/Globulin Ratio 1.2 (1.1-2.2); Bilirubin,Total 0.6 mg/dL (0.3-1.0); Calcium 8.5 mg/dL (8.6-10.3); Globulin 2.4 g/dL (2.4-3.5); Magnesium 1.9 mg/dL (1.6-2.6); Phosphorous 3.7 mg/dL (2.7-4.5); Potassium 3.2 mEq/L (3.5-5.1); Total Protein 5.2 g/dL (6.4-8.9)
[2020-05-15] MEDS: MetroNIDAZOLE 500 MG/100 ML 500 MG/100 ML BAG IVPB SCH ×3 (05:57→22:49)
[2020-05-15] MEDS: *HR* Heparin 5,000 UNIT/ML VIAL SQ SCH ×2 (05:58→18:31)
[2020-05-15] MEDS: Chlorhexidine Rinse 15 ML MOUTHWASH MM SCH ×2 (07:43→21:34)
[2020-05-15] MEDS: Cefepime HCl 2,000 MG in Water for inj. (sterile) 20 ML IVP SCH ×2 (07:43→21:33)
[2020-05-15] MEDS: Aspirin 81 MG TAB.CHEW PO SCH (07:43)
[2020-05-15] MEDS: Pantoprazole 40 MG VIAL IVP SCH (07:46)
[2020-05-15] MEDS: Insulin DETEMIR 100 UNIT/ML X5UNITS SQ SCH ×2 (07:50→21:37)
[2020-05-15] MEDS: Metoprolol XL (24 HR) Succ 50 MG TAB.ER.24H PO SCH (10:05)
[2020-05-15] MEDS ORDERED: Potassium Chloride Elixir 20 MEQ/15 ML UDC GTUBE ONE (10:55)
[2020-05-15] MEDS ORDERED: *HR* LORazepam 2 MG/ML VIAL IVP ONE ×4 (14:44→14:48)
[2020-05-15] MEDS: SODIUM CHLORIDE 0.9% IVPB SCH (15:49)
[2020-05-15] MEDS: DAPTOMYCIN IVPB SCH (15:49)
[2020-05-15] MEDS: Midazolam HCl 50 MG/100 ML IV.SOLN IVC SCH (17:16)
[2020-05-15] MEDS: Norepinephrine 4 MG/254 ML IV.SOLN IVC SCH (21:33)
[2020-05-15] MEDS: Vasopressin 40 UNIT in D5% in Water 100 ML IVC SCH (21:58)
[2020-05-16] MEDS: FentaNYL (PF) 1,000 MCG/100 ML IV.SOLN IVC SCH ×2 (00:04→23:27)
[2020-05-16] MEDS: Artificial Tears SOLN 15 ML BOTTLE BOTH EYES SCH ×7 (00:06→23:06)
[2020-05-16] MEDS: Insulin LISPRO 300 UNITS/3 ML VIAL SQ SCH ×5 (00:07→23:46)
[2020-05-16] MEDS: Ipratropium 1 PUFF INHALER IH SCH ×4 (03:45→21:35)
[2020-05-16 03:51] LABS: ABG Base Excess 4 mEq/L (-2 to 3); ABG HCO3 29 mEq/L (21-27); ABG Oxygen Saturation 97 % (95-98); ABG PCO2 49 mmHg (35-45); ABG PH 7.38 pH Units (7.32-7.45); ABG PO2 97 mmHg (85-104); ABG TCO2 31 mEq/L (20-26); Blood Gas Modality ASSIST CONTROL; Blood Gas VT 480 cc
[2020-05-16 04:25] LABS: Basophils % 0.1 %; Eosinophils # 0.1 K/mcL (0.0-0.6); Hematocrit 27.9 % (35.3-44.9); Hemoglobin 8.2 g/dL (11.5-15.4); Immature Granulocytes % 0.4 % (0-4); Lymphocytes # 0.5 K/mcL (0.6-4.6); Lymphocytes % 4.6 %; Mean Corpuscular HGB Conc 29.4 g/dL (31.6-35.5); Mean Corpuscular Hemoglobin 28.8 pg (28.0-33.3); Mean Corpuscular Volume 97.9 fL (83.0-100.0); Mean Platelet Volume 10.9 fL (9.4-12.4); Monocytes # 0.4 K/mcL (0.0-1.3); Monocytes % 3.8 %; Neutrophils # 9.7 K/mcL (1.6-8.9); Platelet Count 115 K/mcL (140-400); Red Blood Count 2.85 M/mcL (3.82-4.97); Red Cell Distribution Width 17.3 % (11.5-14.5); Segmented Neutrophils % 90.1 %; White Blood Count 10.8 K/mcL (4.3-11.1)
[2020-05-16 04:31] LABS: Albumin 2.8 g/dL (3.5-5.7); Albumin/Globulin Ratio 1.1 (1.1-2.2); Bilirubin,Total 0.6 mg/dL (0.3-1.0); Calcium 8.5 mg/dL (8.6-10.3); Globulin 2.5 g/dL (2.4-3.5); Potassium 3.6 mEq/L (3.5-5.1); Total Protein 5.3 g/dL (6.4-8.9)
[2020-05-16] MEDS: *HR* Heparin 5,000 UNIT/ML VIAL SQ SCH (05:56)
[2020-05-16] MEDS: MetroNIDAZOLE 500 MG/100 ML 500 MG/100 ML BAG IVPB SCH (06:29)
[2020-05-16] MEDS: Chlorhexidine Rinse 15 ML MOUTHWASH MM SCH ×2 (08:29→19:54)
[2020-05-16] MEDS: Insulin DETEMIR 100 UNIT/ML X5UNITS SQ SCH ×2 (08:29→20:03)
[2020-05-16] MEDS: Pantoprazole 40 MG VIAL IVP SCH (08:29)
[2020-05-16] MEDS: Cefepime HCl 2,000 MG in Water for inj. (sterile) 20 ML IVP SCH (08:29)
[2020-05-16] MEDS: Metoprolol XL (24 HR) Succ 50 MG TAB.ER.24H PO SCH (08:31)
[2020-05-16] MEDS: Aspirin 81 MG TAB.CHEW PO SCH (08:32)
[2020-05-16] MEDS: Vasopressin 40 UNIT in D5% in Water 100 ML IVC SCH ×2 (11:50→23:06)
[2020-05-16] MEDS: DAPTOMYCIN IVPB SCH (15:40)
[2020-05-16] MEDS: SODIUM CHLORIDE 0.9% IVPB SCH (15:40)
[2020-05-16] MEDS: Norepinephrine 4 MG/254 ML IV.SOLN IVC SCH (15:41)
[2020-05-16] MEDS: Midazolam HCl 50 MG/100 ML IV.SOLN IVC SCH (15:41)
[2020-05-16] MEDS ORDERED: Piperacillin/Tazobactam 3.375 GM in 0.9 % Sodium Chloride Mini Bag 100 ML IVPB SCH (16:00)
[2020-05-16] MEDS ORDERED: *HR* Heparin 5,000 UNIT/ML VIAL IVP ONE (16:31)
[2020-05-16] MEDS ORDERED: *HR* Heparin 5,000 UNIT/ML VIAL IVP PRN ×2 (16:31)
[2020-05-16] MEDS: Heparin 25,000UNIT/250ML 1/2NS 25,000 UNIT/250 ML IV.SOLN IVC SCH (19:45)
[2020-05-16] MEDS ORDERED: Meropenem 2,000 MG in Water for inj. (sterile) 20 ML IVP SCH (21:00)
[2020-05-16 23:51] LABS: Hemoglobin 8.2 g/dL (11.5-15.4)
[2020-05-16 23:54] LABS: Hematocrit 28.6 % (35.3-44.9); Mean Corpuscular HGB Conc 28.7 g/dL (31.6-35.5); Mean Corpuscular Hemoglobin 27.7 pg (28.0-33.3); Mean Corpuscular Volume 96.6 fL (83.0-100.0); Mean Platelet Volume 10.4 fL (9.4-12.4); Platelet Count 118 K/mcL (140-400); Red Blood Count 2.96 M/mcL (3.82-4.97); Red Cell Distribution Width 17.7 % (11.5-14.5); White Blood Count 12.9 K/mcL (4.3-11.1)
[2020-05-16 23:56] LABS: INR 1.5; Prothrombin Time 17.2 Seconds (9.4-12.1)
[2020-05-17] LABS: Heparin anti-factor XA UFH > 2.00 IU/mL (0.30-0.70)
[2020-05-17] MEDS: Ipratropium 1 PUFF INHALER IH SCH ×4 (03:27→21:51)
[2020-05-17] MEDS: Artificial Tears SOLN 15 ML BOTTLE BOTH EYES SCH ×5 (04:20→22:33)
[2020-05-17 04:41] LABS: ABG Base Excess 2 mEq/L (-2 to 3); ABG HCO3 28 mEq/L (21-27); ABG Oxygen Saturation 98 % (95-98); ABG PCO2 47 mmHg (35-45); ABG PH 7.37 pH Units (7.32-7.45); ABG PO2 114 mmHg (85-104); ABG TCO2 29 mEq/L (20-26); Blood Gas Modality ASSIST CONTROL; Blood Gas VT 480 cc
[2020-05-17] MEDS: Insulin LISPRO 300 UNITS/3 ML VIAL SQ SCH ×3 (06:04→18:12)
[2020-05-17 06:15] LABS: Eosinophils # 0.1 K/mcL (0.0-0.6); Eosinophils % 1.3 %; Hematocrit 26.5 % (35.3-44.9); Hemoglobin 7.7 g/dL (11.5-15.4); Immature Granulocytes % 0.4 % (0-4); Lymphocytes # 0.6 K/mcL (0.6-4.6); Lymphocytes % 5.8 %; Mean Corpuscular HGB Conc 29.1 g/dL (31.6-35.5); Mean Corpuscular Hemoglobin 28.2 pg (28.0-33.3); Mean Corpuscular Volume 97.1 fL (83.0-100.0); Mean Platelet Volume 11.2 fL (9.4-12.4); Monocytes # 0.5 K/mcL (0.0-1.3); Monocytes % 4.4 %; Neutrophils # 8.9 K/mcL (1.6-8.9); Platelet Count 102 K/mcL (140-400); Red Blood Count 2.73 M/mcL (3.82-4.97); Red Cell Distribution Width 17.8 % (11.5-14.5); Segmented Neutrophils % 88.1 %; White Blood Count 10.2 K/mcL (4.3-11.1)
[2020-05-17 06:32] LABS: Albumin 2.8 g/dL (3.5-5.7); Albumin/Globulin Ratio 1.2 (1.1-2.2); Bilirubin,Direct 0.1 mg/dL (0.0-0.2); Bilirubin,Indirect 0.4 mg/dL (0.0-1.0); Bilirubin,Total 0.5 mg/dL (0.3-1.0); Globulin 2.4 g/dL (2.4-3.5); Total Protein 5.2 g/dL (6.4-8.9)
[2020-05-17 06:33] LABS: Albumin 2.7 g/dL (3.5-5.7); Albumin/Globulin Ratio 1.1 (1.1-2.2); Bilirubin,Total 0.5 mg/dL (0.3-1.0); Calcium 8.2 mg/dL (8.6-10.3); Globulin 2.4 g/dL (2.4-3.5); Potassium 3.6 mEq/L (3.5-5.1); Total Protein 5.1 g/dL (6.4-8.9)
[2020-05-17] MEDS: Pantoprazole 40 MG VIAL IVP SCH (10:16)
[2020-05-17] MEDS: Chlorhexidine Rinse 15 ML MOUTHWASH MM SCH ×2 (10:16→22:33)
[2020-05-17] MEDS: Aspirin 81 MG TAB.CHEW PO SCH (10:16)
[2020-05-17] MEDS: Insulin DETEMIR 100 UNIT/ML X5UNITS SQ SCH (10:16)
[2020-05-17] MEDS: Metoprolol XL (24 HR) Succ 50 MG TAB.ER.24H PO SCH (10:19)
[2020-05-17] MEDS: Norepinephrine 4 MG/254 ML IV.SOLN IVC SCH (15:43)
[2020-05-17] MEDS: Midazolam HCl 50 MG/100 ML IV.SOLN IVC SCH (15:43)
[2020-05-17] MEDS: Vasopressin 40 UNIT in D5% in Water 100 ML IVC SCH (22:33)
[2020-05-17] MEDS: Nystatin POWDER 30 GM BOTTLE TP SCH (22:35)
[2020-05-18] MEDS: Artificial Tears SOLN 15 ML BOTTLE BOTH EYES SCH ×4 (00:27→13:20)
[2020-05-18] MEDS: Insulin LISPRO 300 UNITS/3 ML VIAL SQ SCH ×4 (00:27→18:14)
[2020-05-18] MEDS: Ipratropium 1 PUFF INHALER IH SCH ×4 (03:49→21:21)
[2020-05-18 06:33] LABS: Basophils % 0.1 %; Eosinophils # 0.2 K/mcL (0.0-0.6); Hematocrit 27.9 % (35.3-44.9); Hemoglobin 7.9 g/dL (11.5-15.4); Immature Granulocytes % 0.4 % (0-4); Lymphocytes # 0.6 K/mcL (0.6-4.6); Lymphocytes % 7.1 %; Mean Corpuscular HGB Conc 28.3 g/dL (31.6-35.5); Mean Corpuscular Hemoglobin 27.8 pg (28.0-33.3); Mean Corpuscular Volume 98.2 fL (83.0-100.0); Monocytes # 0.4 K/mcL (0.0-1.3); Monocytes % 4.9 %; Neutrophils # 6.8 K/mcL (1.6-8.9); Platelet Count 108 K/mcL (140-400); Red Blood Count 2.84 M/mcL (3.82-4.97); Segmented Neutrophils % 85.5 %; White Blood Count 7.9 K/mcL (4.3-11.1)
[2020-05-18 06:34] LABS: VBG Ionized Calcium 1.18 mmol/L (1.15-1.35)
[2020-05-18 06:50] LABS: Albumin 2.8 g/dL (3.5-5.7); Albumin/Globulin Ratio 1.1 (1.1-2.2); Bilirubin,Total 0.5 mg/dL (0.3-1.0); Calcium 8.6 mg/dL (8.6-10.3); Globulin 2.5 g/dL (2.4-3.5); Magnesium 1.8 mg/dL (1.6-2.6); Potassium 3.7 mEq/L (3.5-5.1); Total Protein 5.3 g/dL (6.4-8.9)
[2020-05-18 07:02] LABS: Anisocytosis 1+ (Not Present); Platelet Estimate Decreased (Normal)
[2020-05-18] MEDS: MetroNIDAZOLE 500 MG/100 ML 500 MG/100 ML BAG IVPB SCH (07:39)
[2020-05-18] MEDS: Heparin 25,000UNIT/250ML 1/2NS 25,000 UNIT/250 ML IV.SOLN IVC SCH ×3 (07:55→14:56)
[2020-05-18] MEDS: Aspirin 81 MG TAB.CHEW PO SCH (09:50)
[2020-05-18] MEDS: Metoprolol XL (24 HR) Succ 50 MG TAB.ER.24H PO SCH (09:50)
[2020-05-18] MEDS: Pantoprazole 40 MG VIAL IVP SCH (09:53)
[2020-05-18] MEDS: Nystatin POWDER 30 GM BOTTLE TP SCH ×2 (09:53→14:59)
[2020-05-18] MEDS: Chlorhexidine Rinse 15 ML MOUTHWASH MM SCH ×2 (10:01→19:41)
[2020-05-18] MEDS: Vasopressin 40 UNIT in D5% in Water 100 ML IVC SCH (13:53)
[2020-05-18] MEDS ORDERED: *HR* Dextrose 50 % in Water (Vial) 50 ML VIAL IVP PRN (13:57)
[2020-05-18] MEDS ORDERED: Acetaminophen 325 MG TABLET PO PRN (13:57)
[2020-05-18] MEDS ORDERED: Ipratropium 1 PUFF INHALER IH PRN (13:57)
[2020-05-18] MEDS ORDERED: D5% in Water 1,000 ML IVC PRN (13:57)
[2020-05-18] MEDS ORDERED: Dextrose Gel 15 GM/37.5 ML TUBE PO PRN ×2 (13:57)
[2020-05-18] MEDS ORDERED: Naloxone 0.4 MG/ML INJ IVP PRN (13:57)
[2020-05-18] MEDS ORDERED: Artificial Tears SOLN 15 ML BOTTLE BOTH EYES PRN (13:57)
[2020-05-18] MEDS ORDERED: *HR* Heparin 5,000 UNIT/ML VIAL IVP PRN ×2 (13:57)
[2020-05-18] MEDS ORDERED: Ondansetron 4 MG/2 ML VIAL IVP PRN (13:57)
[2020-05-18] MEDS: *HR* Metoprolol 5 MG/5 ML VIAL IVP SCH (18:14)
[2020-05-19] MEDS: *HR* Metoprolol 5 MG/5 ML VIAL IVP SCH ×4 (00:18→18:19)
[2020-05-19] MEDS: Nystatin POWDER 30 GM BOTTLE TP SCH ×4 (00:19→23:05)
[2020-05-19] MEDS: Insulin LISPRO 300 UNITS/3 ML VIAL SQ SCH ×4 (02:23→18:46)
[2020-05-19 03:57] LABS: VBG Ionized Calcium 1.25 mmol/L (1.15-1.35)
[2020-05-19 04:00] LABS: Basophils % 0.1 %
[2020-05-19 04:02] LABS: Eosinophils # 0.3 K/mcL (0.0-0.6); Eosinophils % 3.5 %; Hematocrit 28.9 % (35.3-44.9); Hemoglobin 8.3 g/dL (11.5-15.4); Immature Granulocytes % 0.3 % (0-4); Lymphocytes # 0.5 K/mcL (0.6-4.6); Mean Corpuscular HGB Conc 28.7 g/dL (31.6-35.5); Mean Corpuscular Hemoglobin 29.1 pg (28.0-33.3); Mean Corpuscular Volume 101.4 fL (83.0-100.0); Mean Platelet Volume 11.1 fL (9.4-12.4); Monocytes # 0.5 K/mcL (0.0-1.3); Monocytes % 6.9 %; Neutrophils # 6.1 K/mcL (1.6-8.9); Platelet Count 113 K/mcL (140-400); Red Blood Count 2.85 M/mcL (3.82-4.97); Segmented Neutrophils % 82.2 %; White Blood Count 7.4 K/mcL (4.3-11.1)
[2020-05-19] MEDS: Ipratropium 1 PUFF INHALER IH SCH ×4 (04:08→22:07)
[2020-05-19 04:25] LABS: Albumin/Globulin Ratio 1.2 (1.1-2.2); Bilirubin,Total 0.4 mg/dL (0.3-1.0); Calcium 8.9 mg/dL (8.6-10.3); Globulin 2.6 g/dL (2.4-3.5); Magnesium 1.9 mg/dL (1.6-2.6); Phosphorous 4.1 mg/dL (2.7-4.5); Total Protein 5.6 g/dL (6.4-8.9)
[2020-05-19 04:39] LABS: Thyroid Stimulating Hormone 1.298 mcIU/mL (0.340-5.600)
[2020-05-19 05:18] LABS: Anisocytosis 1+ (Not Present); Platelet Estimate Slight Decrease (Normal)
[2020-05-19] MEDS: Pantoprazole 40 MG VIAL IVP SCH (08:14)
[2020-05-19] MEDS: Levothyroxine Sodium 100 MCG VIAL IVP SCH (08:15)
[2020-05-19] MEDS: Chlorhexidine Rinse 15 ML MOUTHWASH MM SCH ×2 (08:15→19:28)
[2020-05-19] MEDS: Aspirin 81 MG TAB.CHEW PO SCH (09:26)
[2020-05-19] MEDS: Lactobacillus 1 EACH CAP.SPRINK PO SCH ×2 (09:26→19:28)
[2020-05-19] MEDS: Heparin 25,000UNIT/250ML 1/2NS 25,000 UNIT/250 ML IV.SOLN IVC SCH ×2 (13:05→18:47)
[2020-05-19] MEDS: D5% in 0.2% NACL 500 ML IVC SCH (14:57)
[2020-05-20] MEDS: *HR* Metoprolol 5 MG/5 ML VIAL IVP SCH ×5 (00:22→23:49)
[2020-05-20] MEDS: Insulin LISPRO 300 UNITS/3 ML VIAL SQ SCH ×5 (00:32→23:49)
[2020-05-20] MEDS: D5% in 0.2% NACL 500 ML IVC SCH ×3 (01:05→21:02)
[2020-05-20] MEDS: Ipratropium 1 PUFF INHALER IH SCH ×4 (03:33→22:05)
[2020-05-20 04:31] LABS: Basophils % 0.2 %; Hemoglobin 8.3 g/dL (11.5-15.4); Mean Platelet Volume 11.1 fL (9.4-12.4)
[2020-05-20 04:33] LABS: Eosinophils # 0.3 K/mcL (0.0-0.6); Eosinophils % 4.5 %; Hematocrit 29.3 % (35.3-44.9); Immature Granulocytes % 0.3 % (0-4); Lymphocytes # 0.6 K/mcL (0.6-4.6); Lymphocytes % 9.5 %; Mean Corpuscular HGB Conc 28.3 g/dL (31.6-35.5); Mean Corpuscular Hemoglobin 29.1 pg (28.0-33.3); Mean Corpuscular Volume 102.8 fL (83.0-100.0); Monocytes # 0.6 K/mcL (0.0-1.3); Monocytes % 9.2 %; Neutrophils # 4.7 K/mcL (1.6-8.9); Platelet Count 127 K/mcL (140-400); Red Blood Count 2.85 M/mcL (3.82-4.97); Segmented Neutrophils % 76.3 %; White Blood Count 6.2 K/mcL (4.3-11.1)
[2020-05-20 04:43] LABS: % Iron Saturation 35 % (15-50); BUN/Creatinine Ratio 45 (6-26); Blood Urea Nitrogen 69 mg/dL (8-23); Calcium 8.9 mg/dL (8.6-10.3); Carbon Dioxide 27 mEq/L (23-29); Chloride 115 mEq/L (98-107); Glucose 244 mg/dL (70-105); Iron 60 mcg/dL (50-170); Magnesium 1.9 mg/dL (1.6-2.6); Osmolality,Calculated 338 (280-300); Phosphorous 4.2 mg/dL (2.7-4.5); Sodium 150 mEq/L (136-145); Transferrin 123 mg/dL (203-362); eGFR For African Americans 40 (> 60); eGFR For Non-African Americans 33 (> 60)
[2020-05-20 05:03] LABS: Ferritin > 1500 ng/mL (10-120)
[2020-05-20 05:05] LABS: Folate 17.2 ng/mL (3.0-16.0)
[2020-05-20 05:57] LABS: Anisocytosis 1+ (Not Present); Platelet Estimate Slight Decrease (Normal)
[2020-05-20 09:14] LABS: Estimated Average Glucose 183 mg/dl
[2020-05-20] MEDS: Levothyroxine Sodium 100 MCG VIAL IVP SCH (09:20)
[2020-05-20] MEDS: Pantoprazole 40 MG VIAL IVP SCH (09:21)
[2020-05-20] MEDS: Nystatin POWDER 30 GM BOTTLE TP SCH ×3 (09:21→21:22)
[2020-05-20] MEDS: Lactobacillus 1 EACH CAP.SPRINK PO SCH ×2 (09:50→20:37)
[2020-05-20] MEDS: Aspirin 81 MG TAB.CHEW PO SCH (09:50)
[2020-05-20] MEDS: Chlorhexidine Rinse 15 ML MOUTHWASH MM SCH ×2 (10:07→20:36)
[2020-05-20] MEDS: *HR* Heparin 5,000 UNIT/ML VIAL SQ SCH ×2 (12:23→20:37)
[2020-05-21 02:28] LABS: Eosinophils # 0.2 K/mcL (0.0-0.6); Eosinophils % 3.7 %; Hematocrit 27.3 % (35.3-44.9); Hemoglobin 7.5 g/dL (11.5-15.4); Immature Granulocytes % 0.4 % (0-4); Lymphocytes # 0.5 K/mcL (0.6-4.6); Lymphocytes % 10.4 %; Mean Corpuscular HGB Conc 27.5 g/dL (31.6-35.5); Mean Corpuscular Hemoglobin 28.5 pg (28.0-33.3); Mean Corpuscular Volume 103.8 fL (83.0-100.0); Mean Platelet Volume 11.2 fL (9.4-12.4); Monocytes # 0.6 K/mcL (0.0-1.3); Monocytes % 12.4 %; Neutrophils # 3.8 K/mcL (1.6-8.9); Platelet Count 126 K/mcL (140-400); Red Blood Count 2.63 M/mcL (3.82-4.97); Red Cell Distribution Width 18.2 % (11.5-14.5); Segmented Neutrophils % 73.1 %; White Blood Count 5.2 K/mcL (4.3-11.1)
[2020-05-21 02:42] LABS: Calcium 8.9 mg/dL (8.6-10.3); Magnesium 1.8 mg/dL (1.6-2.6); Phosphorous 4.2 mg/dL (2.7-4.5); Potassium 4.1 mEq/L (3.5-5.1)
[2020-05-21] MEDS: Ipratropium 1 PUFF INHALER IH SCH (04:04)
[2020-05-21] MEDS: *HR* Metoprolol 5 MG/5 ML VIAL IVP SCH ×2 (04:12→12:32)
[2020-05-21] MEDS: *HR* Heparin 5,000 UNIT/ML VIAL SQ SCH (04:13)
[2020-05-21] MEDS: Ipratropium/Albuterol Neb 3 ML IH SCH ×2 (04:16→10:24)
[2020-05-21 05:12] LABS: Anisocytosis 1+ (Not Present); Hypochromasia Present (Not Present); Platelet Estimate Decreased (Normal)
[2020-05-21 05:13] LABS: Microcytosis Present (Not Present)
[2020-05-21] MEDS: Insulin LISPRO 300 UNITS/3 ML VIAL SQ SCH ×2 (05:21→12:33)
[2020-05-21] MEDS: D5% in 0.2% NACL 500 ML IVC SCH ×2 (08:31→08:32)
[2020-05-21] MEDS: Chlorhexidine Rinse 15 ML MOUTHWASH MM SCH (08:32)
[2020-05-21] MEDS: Aspirin 81 MG TAB.CHEW PO SCH (08:33)
[2020-05-21] MEDS: Lactobacillus 1 EACH CAP.SPRINK PO SCH (08:33)
[2020-05-21] MEDS: Levothyroxine Sodium 100 MCG VIAL IVP SCH (08:35)
[2020-05-21] MEDS: Nystatin POWDER 30 GM BOTTLE TP SCH (08:37)
[2020-05-21] MEDS ORDERED: D5% in Water 500 ML IVC SCH (09:00)
[2020-05-21] MEDS ORDERED: Pantoprazole 40 MG VIAL IVP SCH (09:00)
[2020-05-21 11:11] VITALS: BP 100/41
[2020-05-21 14:17] LABS: Adenovirus Not Detected (Not Detect); Bordetella Pertussis Not Detected (Not Detect); Chlamydophila pneumoniae Not Detected (Not Detect); Coronavirus 229E Not Detected (Not Detect); Coronavirus HKU1 Not Detected (Not Detect); Coronavirus NL63 Not Detected (Not Detect); Coronavirus OC43 Not Detected (Not Detect); Human Metapneumovirus Not Detected (Not Detect); Human Rhinovirus/Enterovirus Not Detected (Not Detect); Influenza A Subtype 2009 H1 Not Detected (Not Detect); Influenza B Not Detected (Not Detect); Mycoplasma pneumoniae Not Detected (Not Detect); Parainfluenza Virus 1 Not Detected (Not Detect); Parainfluenza Virus 2 Not Detected (Not Detect); Parainfluenza Virus 3 Not Detected (Not Detect); Parainfluenza Virus 4 Not Detected (Not Detect); Respiratory Syncytial Virus Not Detected (Not Detect)
[2020-05-21 14:19] LABS: SARS-CoV-2 DETECTED (Not Detect)
[2020-05-21] MEDS ORDERED: *HR* LORazepam 2 MG/ML VIAL IVP ONE (14:31)
[2020-05-21] MEDS ORDERED: Morphine Sulfate 2 MG/ML SYRINGE IVP ONE (14:31)
[2020-05-21] MEDS ORDERED: Morphine Sulfate 2 MG/ML SYRINGE IVP PRN (14:32)
[2020-05-21] MEDS ORDERED: *HR* LORazepam 2 MG/ML VIAL IVP PRN (14:33)
[2020-05-21] MEDS ORDERED: Glycopyrrolate 0.2 MG/ML VIAL IVP PRN (14:58)
[2020-05-21] MEDS ORDERED: Meropenem 1,000 MG in Water for inj. (sterile) 20 ML IVP SCH (21:00)
== END 2020-05-21 15:58 | disposition expired | DRG 870 ==
LOC: EMEROOARM 14:27 → 2NENU 18:41 → SUATTDRO 18:41 → 2NENU 18:44 → 2NNU 05-20 19:38
PROVIDERS: ADMIT Internal Medicine; ATTEND Pharmacist